=== PATIENT | male | born 1960 | race Hispanic/Latino ===

== ENCOUNTER 2021-06-09 21:08 | Emergency (ER) | payer SELFPAY ==
--- OUTSIDE RECORDS SUMMARY | 2021-06-09 21:10 | XMS REPORT | Continuity of Care Document ---
:1960 Author Organization [facility] t Address [address] [place] [address] [address] [place] [address] Care Team Providers Name Role Phone Unknown, Physician Primary Care Physician Unavailable JACKELINE FREIRE Attending Clinician Unavailable Jad Saravia MD Attending Clinician Problems Condition Condition Condition Status Onset Resolution Last Treating Co mments Source Name Details Category Date Date Treatment Clinician Date Lumbar Lumbar Disease Active [place] radiculopa radiculopa 11-29 He alth thy thy 00:00: 00 Primary Primary Disease Active [facility] osteoarthr osteoarthr 11-29 He alth itis of itis of 00:00: left knee left knee 00 Acute pain Acute pain Disease Active [facility] T of both of both 8-26 Health knees knees 00:00: 00 Acute pain Acute pain Disease Active [facility] of both of both 8-26 Health knees knees 00:00: 00 Allergies, Adverse Reactions, Alerts This patient has no known allergies or adverse reactions. Social History Social Habit Start Date Stop Date Quantity Comments Source Exposure to Not sure [facility] SARS-CoV-2 (event) Alcohol intake 2020-12-24 2020-12-24 Current drinker of [facility] 00:00:00 00:00:00 alcohol (finding) Tobacco use and 2020-11-29 2020-11-29 Smokeless tobacco [facility] exposure 00:00:00 00:00:00 non-user Sex Ass[birth year] At [birth year] [facility] 00:00:00 00:00:00 Smoking Status Start Date Stop Date Source Smokes tobacco daily 2020-11-29 00:00:00 [place] [facility] Medications Ordered Filled Start Stop Current Ordering Indication Dosage Frequency Signature Comments Components Source Medication Medication Date Date Medication? Clinician (SIG) Name Name aspirin 81 0 Yes 81mg QD Take 81 mg U T MG EC 8-30 by mouth 1 Health tablet 15:44: (one) time 10 each day. gabapentin 2020-0 Yes 400mg Q.[id number] Take 400 [place] (Neurontin) 8-30 [id number] mg by H ealth 400 MG 15:44: 3D mouth 3 capsule 10 (three) times a day. losartan-hy 2020-0 Yes 1{tbl} QD Take 1 [facility] droCHLOROth 8-30 tablet by [facility] iazide 15:44: mouth 1 (Hyzaar) 10 (one) time 100-12.5 MG each day. tablet aspirin 81 2020-0 Yes 81mg QD Take 81 mg U T MG EC 8-30 by mouth 1 Health tablet 15:44: (one) time 10 each day. gabapentin 2020-0 Yes 400mg Q.[id number] Take 400 [place] (Neurontin) 8-30 [id number] mg by H ealth 400 MG 15:44: 3D mouth 3 capsule 10 (three) times a day. losartan-hy 2020-0 Yes 1{tbl} QD Take 1 [place] droCHLOROth 8-30 tablet by [facility] iazide 15:44: mouth 1 (Hyzaar) 10 (one) time 100-12.5 MG each day. tablet aspirin 81 2020-0 Yes 81mg QD Take 81 mg U T MG EC 8-30 by mouth 1 Health tablet 10:44: (one) time 10 each day. gabapentin 2020-0 Yes 400mg Q.[id number] Take 400 [facility] (Neurontin) 8-30 [id number] mg by H ealth 400 MG 10:44: 3D mouth 3 capsule 10 (three) times a day. losartan-hy 2020-0 Yes 1{tbl} QD Take 1 UT droCHLOROth 8-30 tablet by [facility] iazide 10:44: mouth 1 (Hyzaar) 10 (one) time 100-12.5 MG each day. tablet aspirin 81 2020-0 Yes 81mg QD Take 81 mg U T MG EC 8-30 by mouth 1 Health tablet 10:44: (one) time 10 each day. gabapentin 2021-0 Yes 400mg Q.[id number] Take 400 [place] (Neurontin) 8-30 [id number] mg by H ealth 400 MG 10:44: 3D mouth 3 capsule 10 (three) times a day. losartan-hy 202-0 Yes 1{tbl} QD Take 1 UT droCHLOROth 8-30 tablet by [facility] iazide 10:44: mouth 1 (Hyzaar) 10 (one) time 100-12.5 MG each day. tablet aspirin 81 2021-0 Yes 81mg QD Take 81 mg U T MG EC 8-30 by mouth 1 Health tablet 10:44: (one) time 10 each day. gabapentin 2021-0 Yes 400mg Q.[id number] Take 400 [facility] (Neurontin) 8-30 [id number] mg by H ealth 400 MG 10:44: 3D mouth 3 capsule 10 (three) times a day. losartan-hy 2020-0 Yes 1{tbl} QD Take 1 UT droCHLOROth 8-30 tablet by [facility] iazide 10:44: mouth 1 (Hyzaar) 10 (one) time 100-12.5 MG each day. tablet aspirin 81 202-0 Yes 81mg QD Take 81 mg U T MG EC 8-30 by mouth 1 Health tablet 10:44: (one) time 10 each day. gabapentin 2021-0 Yes 400mg Q.[id number] Take 400 [facility] (Neurontin) 8-30 [id number] mg by H ealth 400 MG 10:44: 3D mouth 3 capsule 10 (three) times a day. losartan-hy 2020-0 Yes 1{tbl} QD Take 1 UT droCHLOROth 8-30 tablet by [facility] iazide 10:44: mouth 1 (Hyzaar) 10 (one) time 100-12.5 MG each day. tablet aspirin 81 2021-0 Yes 81mg QD Take 81 mg U T MG EC 8-30 by mouth 1 Health tablet 10:44: (one) time 10 each day. gabapentin 2021-0 Yes 400mg Q.[id number] Take 400 [facility] (Neurontin) 8-30 [id number] mg by H ealth 400 MG 10:44: 3D mouth 3 capsule 10 (three) times a day. losartan-hy 202-0 Yes 1{tbl} QD Take 1 [facility] droCHLOROth 8-30 tablet by [facility] iazide 10:44: mouth 1 (Hyzaar) 10 (one) time 100-12.5 MG each day. tablet Vital Signs Vital Name Observation Time Observation Value Comments Source Body height 2020-11-29 15:41:00 165.1 cm [facility] Body weight 2020-11-29 15:41:00 [facility] 2020-11-29 15:41:00 32.62 kg/m2 [facility] Procedures Procedure Date / Time Performed Performing Clinician Misti orellana MA BONE DENSITY DXA DUAL ENERGY 2021-01-07 15:19:32 Jonas Freire [facility] [id number] MRI LUMBAR SPINE WO CONTRAST 2020-12-09 23:35:00 Jad Saravia [facility] XR KNEE 3 VIEWS BILATERAL 2020-11-29 16:06:31 Jad Saravia [facility] Encounters Start End Encounter Admission Attending Care Care Encounter Source Date/Time Date/Time Type Type Clinicians Facility Department ID 2020-12-[address] [facility] [id number] [place] 10:43:56 [facility] Heal 2020-12-[address] [facility] [id number] [place] 09:43:46 Health 2020-12-[address] [facility] [id number] [place] 09:41:26 Health 2020-11-[address] [facility] [id number] [place] 10:27:52 Health 2021-02-11 2021-02-11 Office ABI Freire ORTHO [id number] [place] 09:19:10 10:29:44 Visit Jackeline SUGAR [id number] Health [place] [id number] 1 2021-01-03 2021-01-03 EXT [facility] OP TAMERA Freire MSRDP [id number] [place] 00:00:00 00:00:00 Jackeline LOCATION [id number] Health [id number] 2020-12-24 2020-12-24 Office ABI Freire ORTHO [id number] [place] 09:25:19 10:40:15 Visit Jackeline SUGAR [id number] Health LAND [id number] 1 2020-12-09 2020-12-09 EXT [facility] OP Rani, EXT MSRDP [id number] [place] 00:00:00 00:00:00 Jad VALDES [id number] H ealth [id number] 2020-11-29 2020-11-29 Office ABI Saravia ORTHO [id number] [place] 09:57:10 11:24:15 Visit Jad MEJIA [id number] He alth LAND [id number] 1 Results Test Description Test Time Test Comments Results Result [facility] e Comments XR knee 3 views 2020-11-29 3 views of bilateral [facility] bilateral 16:12:46 knees-the right knee is essentially normal, the left knee reveals a proximal tibial osteochondroma and moderate tricompartment arthritis XR knee 3 views 2020-11-29 3 views of bilateral [facility] bilateral 16:12:46 knees-the right knee is essentially normal, the left knee reveals a proximal tibial osteochondroma and moderate tricompartment arthritis
[2021-06-09 21:53] LABS: Urine Blood Negative (Negative); Urine Glucose Negative (Negative); Urine Protein 1+ (Negative); Urine Specific Gravity >=1.030 (1.005-1.030)
[2021-06-09] MEDS ORDERED: FAMOTIDINE 20 MG/2 ML VIAL IV ONE (22:10)
[2021-06-09] MEDS ORDERED: NA CHLORIDE 0.9% 1,000 ML ONE (22:10)
[2021-06-09] MEDS ORDERED: ONDANSETRON 4 MG/2 ML VIAL ONE (22:10)
[2021-06-09 22:31] LABS: Absolute Lymphocytes (CBC) 1.2 K/uL (0.7-4.9); Hematocrit 39.8 % (39.6-49.0); Lymphocytes % 10.7 % (15.3-44.8); MPV 7.2 fL (7.6-11.3); RBC Red Blood Cell Count 5.09 M/uL (4.33-5.43)
[2021-06-09 22:48] LABS: Albumin 4.4 g/dL (3.4-5.0); Bilirubin Direct 0.1 mg/dL (0-0.2); Bilirubin Total 0.5 mg/dL (0.2-1.0); Potassium 3.9 mmol/L (3.5-5.1); Troponin High Sensitivity 5.7 pg/mL (<58.9)
--- NOTE | 2021-06-10 01:16 | EDPHYS ---
Physician Documentation [facility] Name: Philip Ya Age: 60 yrs Sex: Male : 1960 Arrival Date: 06/09/2021 Time: 21:12 Bed 12 Private MD: ED Physician Evan Grimaldo HPI: 06/09 22:00 This 60 yrs old Male presents to ER via Ambulatory with complaints of cp Nausea/Vomiting/Diarrhea. 22:00 The patient presents to the emergency department with nausea, that is moderate, cp vomiting, that is intermittent, diarrhea, that is continuous, abdominal pain. Onset: The symptoms/episode began/occurred today. Possible causes: unknown. Associated signs and symptoms: Pertinent positives: anorexia, Pertinent negatives: constipation, fever, GI bleeding. Severity of symptoms: in the emergency department the symptoms are unchanged despite home interventions. Historical: - Allergies: 21:35 No Known Allergies; ld1 - Home Meds: 21:35 losartan-hydrochlorothiazide oral [Active]; gabapentin oral [Active]; ergocalciferol ld1 (vitamin D2) oral [Active]; Flomax 0.4 mg Oral cap 1 cap once daily [Active]; Simeon Aspirin (with caffeine) 850-65 mg oral pwpk [Active]; - PMHx: 21:35 Hypertensive disorder; BPH; ld1 - PSHx: 21:35 None; ld1 - Immunization history:: Adult Immunizations up to date, Client reports receiving the 2nd dose of the Covid vaccine. - Social history:: Smoking status: Patient denies any tobacco usage or history of. Patient/guardian denies using alcohol. ROS: 22:05 Constitutional: Positive for poor PO intake, Negative for body aches, chills, fever. cp 22:05 Eyes: Negative for injury, pain, redness, and discharge. cp 22:05 ENT: Negative for drainage from ear(s), ear pain, sore throat, difficulty swallowing, difficulty handling secretions. 22:05 Cardiovascular: Negative for chest pain, edema, palpitations. 22:05 Respiratory: Negative for cough, shortness of breath, wheezing. 22:05 Abdomen/GI: Positive for abdominal pain, nausea, vomiting, and diarrhea, anorexia, Negative for hematemesis, black/tarry stool, rectal bleeding. 22:05 Back: Negative for pain at rest, pain with movement. 22:05 : Negative for urinary symptoms. 22:05 Neuro: Negative for altered mental status, headache, weakness. 22:05 All other systems are negative. Exam: 22:10 Constitutional: The patient appears in no acute distress, alert, awake, cp non-diaphoretic, non-toxic, well developed, well nourished, uncomfortable. 22:10 Head/Face: Normocephalic, atraumatic. cp 22:10 Eyes: Periorbital structures: appear normal, Conjunctiva: normal, no exudate, no injection, Sclera: no appreciated abnormality, Lids and lashes: appear normal, bilaterally. 22:10 ENT: External ear(s): are unremarkable, Nose: is normal, Mouth: Lips: moist, Oral mucosa: moist, Posterior pharynx: Airway: no evidence of obstruction, patent. 22:10 Chest/axilla: Inspection: normal, Palpation: is normal, no crepitus, no tenderness. 22:10 Cardiovascular: Rate: tachycardic, Rhythm: regular. 22:10 Respiratory: the patient does not display signs of respiratory distress, Respirations: normal, no use of accessory muscles, no retractions, labored breathing, is not present, Breath sounds: are clear throughout, no decreased breath sounds, no stridor, no wheezing. 22:10 Abdomen/GI: Inspection: distension, that is mild, Bowel sounds: active, all quadrants, Palpation: soft, in all quadrants, moderate abdominal tenderness, in all quadrants, rebound tenderness, is not appreciated, involuntary guarding, is not appreciated. 22:10 Back: pain, is absent, ROM is normal. 22:10 Neuro: Orientation: to person, place \T\ time. Mentation: is normal. 22:38 ECG was reviewed by the Attending Physician. cp Vital Signs: 21:34 BP 124 / 77; Pulse 116; Resp 20; Temp 98.3(O); Pulse Ox 98% on R/A; Weight 99.79 kg; ld1 Height 5 ft. 10 in. (177.80 cm); Pain 8/10; 22:45 BP 134 / 79; Pulse 99; Resp 24; Pulse Ox 98% on R/A; tw5 06/10 01:46 BP 145 / 98; Pulse 103; Resp 18; Pulse Ox 99% on R/A; tw5 06/09 21:34 Body Mass Index 31.57 (99.79 kg, 177.80 cm) ld1 MDM: 06/09 21:47 Patient medically screened. cp 22:30 Differential diagnosis: gastritis, cholecystitis, diverticulitis, viral cp gastroenteritis, gastroenteritis, dehydration, bowel obstruction, enteritis. 06/10 01:15 Data reviewed: vital signs, nurses notes, lab test result(s), radiologic studies, CT cp scan. 01:15 Counseling: I had a detailed discussion with the patient and/or guardian regarding: the cp historical points, exam findings, and any diagnostic results supporting the discharge/admit diagnosis, lab results, radiology results, to return to the emergency department if symptoms worsen or persist or if there are any questions or concerns that arise at home. Response to treatment: the patient's symptoms have markedly improved after treatment, patient is well hydrated. Nausea and pain markedly improved. Vomiting resolved. Will discharge to home for continued monitoring. Special discussion: Based on the patient's Hx, exam, and Dx evaluation, there is no indication for emergent surgery or inpatient Tx. It is understood by the patient/guardian that if the Sx's persist or worsen they need to return immediately for re-evaluation. 06/09 21:53 Order name: Urine Dipstick-Ancillary; Complete Time: 22:16 EDMS 06/10 01:11 Interpretation: Normal except: UPROT 1+; U NIT Positive. cp 06/09 22:04 Order name: Basic Metabolic Panel cp 06/09 22:04 Order name: CBC with Diff; Complete Time: 23:04 cp 06/09 23:04 Interpretation: Normal except: HGB 12.7; MCV 78.2; MCH 24.9; MCHC 31.8; PLT 475; RDW cp 17.1; MPV 7.2; ALEXIS% 82.5; LYM% 10.7; NEUT A 8.9. 06/09 22:04 Order name: Hepatic Function; Complete Time: 23:04 cp 06/10 01:12 Interpretation: Normal except: AST 45; TP 9.0; GLOB 4.6; A/G 1.0. cp 06/09 22:04 Order name: Lipase; Complete Time: 23:04 cp 06/09 22:05 Order name: Magnesium; Complete Time: 23:04 cp 06/09 22:05 Order name: Troponin High Sensitivity; Complete Time: 23:04 cp 06/09 22:06 Order name: Basic Metabolic Panel; Complete Time: 23:04 EDMS 06/10 01:12 Interpretation: Normal except: CL 109; GLUC 120; BUN 21; GFR 65. cp 06/09 22:22 Order name: CT Abd/Pelvis - IV Contrast Only cp 06/10 01:12 Order name: Urine Microscopic Only cp 06/10 01:13 Order name: Urine Microscopic Only EDMS 06/10 01:30 Order name: Urine Culture tw5 06/10 01:31 Order name: Urine Culture EDTX 06/09 22:04 Order name: IV Saline Lock; Complete Time: 22:18 cp 06/09 22:04 Order name: Labs collected and sent; Complete Time: 22:18 cp 06/09 22:05 Order name: EKG; Complete Time: 22:06 cp 06/09 22:05 Order name: EKG - Nurse/Tech; Complete Time: 22:44 cp 06/10 01:13 Order name: PO challenge; Complete Time: 01:30 cp EC/10 22:38 Rate is 94 beats/min. Rhythm is regular. SD interval is normal. QRS interval is normal. cp QT interval is normal. T waves are Inverted in lead aVR. Interpreted by me. Reviewed by me. Administered Medications: 22:10 Drug: Pepcid (famotidine) 20 mg Route: IVP; Site: right antecubital; tw5 23:51 Follow up: Response: No adverse reaction tw5 22:12 Drug: Zofran (Ondansetron) 4 mg Route: IVP; Site: right antecubital; tw5 23:51 Follow up: Response: No change in condition tw5 22:14 Drug: NS 0.9% 1000 ml Route: IV; Rate: 1 bolus; Site: right antecubital; tw5 23:00 Follow up: IV Status: Completed infusion tw5 06/10 01:46 Drug: Ciprofloxacin 500 mg Route: PO; tw 01:47 Follow up: Response: No adverse reaction tw5 Disposition Summary: 06/10/21 01:15 Discharge Ordered Location: Home cp Problem: new cp Symptoms: have improved cp Condition: Stable cp Diagnosis - Diarrhea, unspecified cp - Nausea with vomiting, unspecified cp - UTI/ Urinary tract infection, site not specified cp Followup: cp - With: Private Physician - When: 2 - 3 days - Reason: Worsening of condition Discharge Instructions: - Discharge Summary Sheet cp - Food Choices to Help Relieve Diarrhea, Adult cp - Diarrhea, Adult cp - Nausea and Vomiting, Adult cp - Urinary Tract Infection, Adult cp Forms: - Medication Reconciliation Form cp - Thank You Letter cp - Antibiotic Education cp - Prescription Opioid Use cp Prescriptions: - Zofran 4 mg Oral Tablet - take 1 tablet by ORAL route every 12 hours As needed; 20 tablet; Refills: 0, cp Product Selection Permitted - Cipro 500 mg Oral Tablet - take 1 tablet by ORAL route every 12 hours for 7 days; 14 tablet; Refills: 0, cp Product Selection Permitted Addendum: 06/12/2021 19:14 Co-signature as Attending Physician, Evan Grimaldo MD. m Signatures: Dispatcher [employer] EDMS João Sahu PA PA cp Holmes, Maurice, MD MD [id number] Zabrina Flores RN RN 1 Emiliana Baker 5 aRina Alberts PA PA sb3
--- NOTE | 2021-06-10 01:16 | ER ---
Nurse's Notes [facility] Name: Philip Ya Age: 60 yrs Sex: Male : 1960 Arrival Date: 06/09/2021 Time: 21:12 Bed 12 Private MD: Diagnosis: Diarrhea, unspecified;Nausea with vomiting, unspecified;UTI/ Urinary tract infection, site not specified Presentation: 06/09 21:34 Chief complaint: Patient states: N/V/D X 1 day - mid epigastic ABD pain 11/09. ld1 Coronavirus screen: At this time, the client does not indicate any symptoms associated with coronavirus-19. Ebola Screen: No symptoms or risks identified at this time. Initial Sepsis Screen: Does the patient meet any 2 criteria? No. Patient's initial sepsis screen is negative. Does the patient have a suspected source of infection? No. Patient's initial sepsis screen is negative. Risk Assessment: Do you want to hurt yourself or someone else? Patient reports no desire to harm self or others. Onset of symptoms was June 09, 2021. 21:34 Method Of Arrival: Ambulatory ld1 21:34 Acuity: CHERELLE 3 ld1 Triage Assessment: 21:35 General: Appears in no apparent distress. comfortable, Behavior is calm, cooperative, ld1 appropriate for age. Pain: Complains of pain in epigastric area Pain does not radiate. Pain currently is 8 out of 10 on a pain scale. Neuro: Level of Consciousness is awake, alert, obeys commands, Oriented to person, place, time, situation. Respiratory: Airway is patent Respiratory effort is even, unlabored. GI: Abdomen is round non-distended, Reports diarrhea, nausea, vomiting. Historical: - Allergies: 21:35 No Known Allergies; ld1 - Home Meds: 21:35 losartan-hydrochlorothiazide oral [Active]; gabapentin oral [Active]; ergocalciferol ld1 (vitamin D2) oral [Active]; Flomax 0.4 mg Oral cap 1 cap once daily [Active]; Simeon Aspirin (with caffeine) 850-65 mg oral pwpk [Active]; - PMHx: 21:35 Hypertensive disorder; BPH; ld1 - PSHx: 21:35 None; ld1 - Immunization history:: Adult Immunizations up to date, Client reports receiving the 2nd dose of the Covid vaccine. - Social history:: Smoking status: Patient denies any tobacco usage or history of. Patient/guardian denies using alcohol. Screenin:59 Abuse screen: Denies threats or abuse. Nutritional screening: No deficits noted. tw5 Tuberculosis screening: No symptoms or risk factors identified. Fall Risk IV access (20 points). Assessment: 21:59 General: Appears uncomfortable, Behavior is calm, cooperative, appropriate for age. tw5 Neuro: Level of Consciousness is awake, alert, obeys commands, Oriented to person, place, time, situation. Cardiovascular: Heart tones S1 S2. Respiratory: Breath sounds are clear bilaterally. GI: Abdomen is round Bowel sounds present X 4 quads. : No deficits noted. EENT: No deficits noted. Derm: No deficits noted. Musculoskeletal: No deficits noted. 21:59 Cardiovascular: 1-2+ pitting edema noted. Respiratory: Airway is patent Respiratory tw5 effort is labored, Respiratory pattern is regular. 06/10 01:46 Reassessment: Patient appears in no apparent distress at this time. Patient and/or tw5 family updated on plan of care and expected duration. Pain level reassessed. Patient is alert, oriented x 3, equal unlabored respirations, skin warm/dry/pink. Vital Signs: 06/09 21:34 BP 124 / 77; Pulse 116; Resp 20; Temp 98.3(O); Pulse Ox 98% on R/A; Weight 99.79 kg; ld1 Height 5 ft. 10 in. (177.80 cm); Pain 8/10; 22:45 BP 134 / 79; Pulse 99; Resp 24; Pulse Ox 98% on R/A; tw5 06/10 01:46 BP 145 / 98; Pulse 103; Resp 18; Pulse Ox 99% on R/A; tw5 06/09 21:34 Body Mass Index 31.57 (99.79 kg, 177.80 cm) ld1 ED Course: 06/09 21:12 Patient arrived in ED. ag3 21:35 Triage completed. ld1 21:35 Arm band placed on right wrist. ld1 21:38 Emiliana Baker is Primary Nurse. tw5 21:39 João Sahu PA is PHCP. cp 21:39 Evan Grimaldo MD is Attending Physician. cp 21:59 Patient has correct armband on for positive identification. Bed in low position. Call tw5 light in reach. 21:59 No provider procedures requiring assistance completed. Inserted saline lock: 20 gauge tw5 in right antecubital area, using aseptic technique. 22:20 Troponin High Sensitivity Sent. tw5 22:20 Basic Metabolic Panel Sent. tw5 22:20 Magnesium Sent. tw5 22:20 CBC with Diff Sent. tw5 22:20 Hepatic Function Sent. tw5 22:20 Lipase Sent. tw5 22:20 Basic Metabolic Panel Sent. tw5 22:44 Hepatic Function Sent. tw5 22:44 Lipase Sent. tw5 23:22 CT Abd/Pelvis - IV Contrast Only In Process Unspecified. EDMS 06/10 00:06 Report given to Emiliana. :46 Door closed. Noise minimized. Moved to private room. 01:46 Urine Culture Sent. :46 Urine Culture Sent. 01:46 Urine Microscopic Only Sent. 01:46 Urine Microscopic Only Sent. 01:46 IV discontinued, intact, bleeding controlled, No redness/swelling at site. Pressure tw5 dressing applied. Administered Medications: 06/09 22:10 Drug: Pepcid (famotidine) 20 mg Route: IVP; Site: right antecubital; tw 23:51 Follow up: Response: No adverse reaction 22:12 Drug: Zofran (Ondansetron) 4 mg Route: IVP; Site: right antecubital; tw 23:51 Follow up: Response: No change in condition 22:14 Drug: NS 0.9% 1000 ml Route: IV; Rate: 1 bolus; Site: right antecubital; tw 23:00 Follow up: IV Status: Completed infusion tw06/10 01:46 Drug: Ciprofloxacin 500 mg Route: PO; 01:47 Follow up: Response: No adverse reaction Outcome: 01:15 Discharge ordered by . cp 01:46 Discharged to home ambulatory, with family. 01:46 Condition: good 01:46 Discharge instructions given to patient, family, Instructed on discharge instructions, follow up and referral plans. medication usage, Demonstrated understanding of instructions, follow-up care, medications, Prescriptions given X 2. 01:47 Patient left the ED. tw Signatures: Dispatcher [employer] EDMS Page, João, PA PA cp Shin, Daysi ag3 Zabrina Flores, WANDA RN ld1 Emiliana Baker tw5
[2021-06-10] MEDS ORDERED: CIPROFLOXACIN HCL 500 MG TAB ONE (01:33)
[2021-06-10 02:02] LABS: Urine Bacteria 20-50 /HPF (NONE SEEN); Urine Mucus 1+ /HPF (NONE SEEN); Urine RBC NONE SEEN /HPF (NONE SEEN)
[2021-06-10 02:06] VITALS: TEMP 98.3
[2021-06-10 02:09] VITALS: BP 145/98; O2SAT 99
--- NOTE | 2021-06-10 13:09 | EKG ---
Test Date: 2021-06-09 Test Time: 22:33:29 Civil Designer: JOEY MEASUREMENT RESULTS: Intervals: Rate: 94 NH: 140 QRSD: 90 QT: 344 QTc: 430 [place]: P: 36 NH: 140 QRS: 40 T: 51 INTERPRETIVE STATEMENTS: Normal sinus rhythm Normal ECG No previous ECG available for comparison Electronically Signed On 06-10-21 13:08:01 MIXING TUMBLER OPERATOR by Rashaad Stephens
--- NOTE | 2021-06-10 14:58 | RAD REPORT ---
EXAM DESCRIPTION: CT - Abdomen Pelvis W Contrast - 06/10/2021 6:12 am CLINICAL HISTORY: 60-year-old male with abdominal pain. COMPARISON: None. TECHNIQUE: CT of the abdomen and pelvis was performed following intravenous administration of contra st. Oral contrast was not administered. Multiplanar reformatted images were provided. This exam was p erformed according to our departmental dose optimization program which includes use of automated expo sure control, adjustment of the mA and/or kV according to patient size and/or use of iterative recons truction technique. FINDINGS: Chest: Evaluation through the lung bases reveals no focal opacity, pleural effusion or pne umothorax. Heart size is within normal limits. No pericardial effusion. Small hiatal hernia. Abdomen and pelvis: The liver, gallbladder, pancreas, spleen, bilateral kidneys and bilateral adrenal glands are within normal limits. The vessels are patent and normal in caliber. No abdominopelvic lymph nodes are noted to be pathologically enlarged by CT measurement criteria. The bowel is within normal limits without abnormal bowel wall thickness or bowel dilation. Unformed s tool present throughout the large and small bowel compatible with liquid fecal content/diarrhea, rais ing the question of enteritis. No free air. No free abdominopelvic fluid collections. The appendix is within normal limits. The osseous structures reveal a grade 2 anterolisthesis of L4 relative to L5 with uncovering of the d isk and severe broad-based disk bulge resulting in severe central spinal canal narrowing secondary to facet degenerative change at this level. There is associated severe bilateral neuroforaminal narrowi ng. Moderate disk extrusion on the RIGHT at the L5-S1 level in a RIGHT paracentral distribution resulting in abutment or mass effect on the descending S1 nerve roots. There is associated severe right-sided neural foraminal narrowing. Small fat-containing umbilical hernia. Moderate bilateral fat-containing inguinal hernia. IMPRESSION: 1. No specific acute intra-abdominal findings are noted to suggest etiology of the pat ient's abdominal pain. 2. Unformed stool present throughout the large and small bowel compatible with liquid fecal content /diarrhea, raising the question of enteritis. 3. Small hiatal hernia. 4. Moderate to severe degenerative bony and disk changes with moderate to severe central spinal can al and neural foraminal narrowing as detailed above. Further evaluation with MRI to be considered. Electronically signed by: Tabatha Carson MD 06/09/2021 11:41 PM IP LITIGATION [place] Due to temporary technical issues with the PACS/Fluency reporting system, reports are being signed by the in house radiologists without review as a courtesy to insure prompt reporting. The interpreting radiologist is fully responsible for the content of the report.
== END 2021-06-10 01:47 | disposition home or self-care (01) ==
LOC: ER 21:08
DX: N39.0 Urinary tract infection, site not specified (principal); R19.7 Diarrhea, unspecified; I10 Essential (primary) hypertension; N40.0 Benign prostatic hyperplasia without lower urinary tract symptoms
CPT/HCPCS: 36415; 74177; 80048; 80076; 81003; 81015; 83690; 83735; 84484; 85025; 87086; 87088; 93005; 96361; 96374; 96375; 99284; J2405; J7030; Q9967

== ENCOUNTER 2024-01-14 16:42 | Emergency (ER) | payer SELFPAY ==
[2024-01-14 17:57] LABS: Absolute Basophils 0.1 K/uL (0-0.5); Absolute Eosinophils 0.1 K/uL (0-0.5); Absolute Lymphocytes (CBC) 1.7 K/uL (0.7-4.9); Absolute Monocytes 0.5 K/uL (0.1-1.3); Absolute Neutrophil 4.9 K/uL (1.8-8.0); Albumin 3.5 g/dL (3.4-5.0); Albumin/Globulin Ratio 0.9 (1.1-1.8); Anion Gap 8.2 mEq/L (5.0-15.0); Bilirubin Total 0.7 mg/dL (0.2-1.0); Eosinophils % 0.7 % (0-4.4); Globulin 3.8 g/dL (2.3-3.5); Hematocrit 39.2 % (39.6-49.0); Hemoglobin 12.7 g/dL (13.6-17.9); Lymphocytes % 23.3 % (15.3-44.8); MCH 27.2 pg (27.0-35.0); MCHC 32.5 g/dL (32.0-36.0); MCV 83.7 fL (80-100); MPV 6.5 fL (7.6-11.3); Monocytes % 6.5 % (3.3-12.3); Neutrophils % 68.5 % (41.7-73.7); Nucleated Red Blood Cells % 0.1 % (0-0); Platelets 327 thou/uL (152-406); Potassium 4.2 mEq/L (3.5-5.1); Protein, Total 7.3 g/dL (6.4-8.2); RBC Red Blood Cell Count 4.69 M/uL (4.33-5.43); Red Cell Distribution Width 18.9 % (12.1-15.2)
[2024-01-14 18:02] LABS: PT Prothrombin Time 11.5 SECONDS (9.4-12.5); PTT, Activated Partial Thromb 30.1 SECONDS (24.3-36.9); Protime INR 1.03
[2024-01-14] MEDS ORDERED: KETOROLAC 30 MG/ML INJ ONE (18:09)
--- NOTE | 2024-01-14 18:09 | RAD REPORT ---
EXAMINATION: ONE VIEW CHEST XR CLINICAL INDICATION: Male, 63 years old.,COUGH TECHNIQUE: Frontal chest projection is submitted. Examination is limited by patient positioning and t echnique. COMPARISON: None FINDINGS: The lungs are well inflated. Right basilar atelectasis, mild. No other focal airspace opacities. No pneumothorax or sizable effusion. The heart is mildly prominent in size. IMPRESSION: No acute pulmonary process. Mild prominence of the cardiac silhouette.
[2024-01-14] MEDS ORDERED: NA CHLORIDE 0.9% 250 ML ONE (18:10)
[2024-01-14] MEDS ORDERED: FENTANYL CITR 100 MCG/2 ML ONE (18:10)
--- NOTE | 2024-01-14 18:43 | RAD REPORT ---
EXAM: CT brain without contrast HISTORY: Ground-level fall COMPARISON: None TECHNIQUE: Multiple contiguous axial images were obtained and a CT of the brain without contrast. Sag ittal and coronal reformats were performed. FINDINGS:No evidence of hydrocephalus, intracranial hemorrhage, or extra-axial fluid collection. The brain is normal in morphology. The calvarium is intact. Right maxillary sinus mucus retention cyst. Diminutive appearance and opacif ication of the mastoid air cells bilaterally. IMPRESSION: No evidence of acute intracranial abnormality. EXAM: CT of the cervical spine without contrast HISTORY: Ground-level fall COMPARISON: None TECHNIQUE: Multiple contiguous axial images were obtained in a CT of the cervical spine without contr ast. Sagittal and coronal reformats were performed. FINDINGS: The vertebral bodies demonstrate normal height and alignment. No evidence of acute fracture or subluxation.. Mild degenerative changes with up to moderate degrees of bony neural foraminal narrowing. No prevertebral soft tissue swelling is seen. The posterior facets are well aligned. Normal alignment of the skull base with the cervical spine is seen. The lung apices are unremarkable. IMPRESSION: No evidence of acute osseous abnormality of the cervical spine.
--- NOTE | 2024-01-14 18:46 | RAD REPORT ---
EXAMINATION: CT LUMBAR SPINE WITHOUT CONTRAST CLINICAL INDICATION: Male, 63 years old. GLF TECHNIQUE: Axial CT images were obtained through the lumbar spine in soft tissue and bone windows wit hout intravenous contrast. Coronal and Sagittal reformatted images were created from the data set. One or more of the following dose reduction techniques were used: Automated exposure control, adjustm ent of the mA and/ or kV according to patient size, and/or iterative reconstruction. Unless otherwise specified, incidental findings do not require dedicated imaging follow-up. COMPARISON: No prior exam. FINDINGS: For purposes of this dictation, it is assumed that there are 5 non rib-bearing lumbar type vertebrae, and the most caudal fully segmented lumbar vertebra is labeled L5. ALIGNMENT: The lumbar spine demonstrates grade 1 anterolisthesis at L4-5. No scoliosis or spondylolis thesis at other levels. BONES: No significant soft tissue abnormalities. No aggressive osseous lesions. Mild superior endplat e compression deformity at L4, probably chronic, with Schmorl's node formation. DISCS: Moderate disc height loss at L1-2, L4-5, and L5-S1. LEVELS: Multilevel endplate and facet remodeling, most pronounced at L4-5, where there is moderate to severe central canal stenosis. Disc bulges most pronounced at L4-5, and to lesser degree at L5-S1 and L3-4. Bilateral neural foraminal narrowing, up to severe at L4-5 bilaterally. No visualized abnor mality within the spinal canal. SOFT TISSUE: No soft tissue abnormalities. IMPRESSION: No acute lumbar spine abnormalities. Multilevel spondylotic changes with grade 1 anterolisthesis of L4 over L5, with findings contributing to severe central canal stenosis and bilateral moderate to severe neural foraminal narrowing at that level.
--- NOTE | 2024-01-14 20:09 | ER ---
Nurse's Notes [facility] Name: Philip Ya Age: 63 yrs Sex: Male : 1960 Arrival Date: 01/14/2024 Time: 16:42 Bed 4 Private MD: Diagnosis: Low back pain;Contusion of unspecified part of neck Presentation: 01/13 17:12 Chief complaint: Patient states: fell yesterday while using my walker. since then my tm6 back, head, and legs have been hurting. I have also had some nausea. Coronavirus screen: Client denies travel out of the [place] in the last 14 days. Ebola Screen: Patient negative for fever greater than or equal to 101.5 degrees Fahrenheit, and additional compatible Ebola Virus Disease symptoms Patient denies exposure to infectious person. Patient denies travel to an Ebola-affected area in the 21 days before illness onset. No symptoms or risks identified at this time. Initial Sepsis Screen: Does the patient meet any 2 criteria? RR > 20 per min. HR > 90 bpm. Yes Does the patient have a suspected source of infection? No. Patient's initial sepsis screen is negative. Risk Assessment: Do you want to hurt yourself or someone else? Patient reports no desire to harm self or others. Onset of symptoms was January 13, 2024. 17:12 Method Of Arrival: Wheelchair tm6 17:12 Acuity: CHERELLE 3 tm6 Triage Assessment: 17:13 General: Appears uncomfortable, Behavior is calm, cooperative. Pain: Complains of pain tm6 in head, back, legs Pain currently is 10 out of 10 on a pain scale. Pain began 1 day ago. EENT: No signs and/or symptoms were reported regarding the EENT system. Neuro: Level of Consciousness is awake, alert, obeys commands, Oriented to person, place, time, situation, Reports headache since yesterday. Cardiovascular: Patient's skin is warm and dry. Respiratory: Reports SOB at times Airway is patent Respiratory effort is labored, Respiratory pattern is symmetrical. GI: Abdomen is round Reports nausea. : No signs and/or symptoms were reported regarding the genitourinary system. Derm: No signs and/or symptoms reported regarding the dermatologic system. Musculoskeletal: Reports pain in back, right leg and left leg, head. Historical: - Allergies: 17:13 No Known Allergies; tm6 - PMHx: 17:13 BPH; Hypertensive disorder; Diabetes mellitus; Hypercholesterolemia; tm6 - PSHx: 17:13 back; tm6 - Immunization history:: Client reports having NOT received the Covid vaccine. - Infectious Disease History:: Denies. - Social history:: Smoking status: Patient denies any tobacco usage or history of. Patient/guardian denies using alcohol. Screenin:28 [facility] ED Fall Risk Assessment (Adult) History of falling in the last 3 months, bm8 including since admission Yes- single mechanical fall (1 pt) Confusion or Disorientation No (0 pts) Intoxicated or Sedated No (0 pts) Impaired Gait No (0 pts) Mobility Assist Device Used No (0 pt) Altered Elimination No (0 pt) Score/Fall Risk Level 0 - 2 = Low Risk Oriented to surroundings, Maintained a safe environment, Educated pt \T\ family on fall prevention, incl call for assistance when getting out of bed, Assessed \T\ reinforced patient's understanding of fall precautions, Hourly rounding (assess needs \T\ fall precautionary measures) done, Used ambulatory aids as needed (educated on \T\ assisted with), Used gait belt as appropriate. Abuse screen: Denies threats or abuse. Nutritional screening: No deficits noted. Tuberculosis screening: No symptoms or risk factors identified. Assessment: 19:25 Reassessment: Patient appears in no apparent distress at this time. Patient and/or bm8 family updated on plan of care and expected duration. Pain level reassessed. Patient is alert, oriented x 3, equal unlabored respirations, skin warm/dry/pink. Patient denies pain at this time. Patient states feeling better. General: Appears in no apparent distress. comfortable, Behavior is calm, cooperative, appropriate for age. Pain: Denies pain. Neuro: No deficits noted. Level of Consciousness is awake, alert, obeys commands, Oriented to person, place, time, situation, Appropriate for age. Cardiovascular: Denies chest pain, Heart tones S1 S2 present Capillary refill < 3 seconds in bilateral fingers. Respiratory: No deficits noted. Airway is patent Breath sounds are clear bilaterally. GI: No signs and/or symptoms were reported involving the gastrointestinal system. : No signs and/or symptoms were reported regarding the genitourinary system. EENT: No signs and/or symptoms were reported regarding the EENT system. Derm: No signs and/or symptoms reported regarding the dermatologic system. Musculoskeletal: No signs and/or symptoms reported regarding the musculoskeletal system. 20:31 Reassessment: Patient appears in no apparent distress at this time. No changes from bm8 previously documented assessment. Patient and/or family updated on plan of care and expected duration. Pain level reassessed. Patient is alert, oriented x 3, equal unlabored respirations, skin warm/dry/pink. Patient denies pain at this time. Patient states feeling better. Patient states symptoms have improved. Vital Signs: 17:12 BP 149 / 89; Pulse 138; Resp 25; Temp 98.5(O); Pulse Ox 93% on R/A; MAP 102 mmHg; tm6 Weight 95.25 kg; Height 5 ft. 5 in. ; Pain 10/10; 18:25 BP 142 / 83; Pulse 112; Resp 28 S; Pulse Ox 90% on R/A; aa5 18:44 Pulse Ox 95% on 2 lpm NC; aa5 19:28 BP 117 / 71; Pulse 108; Resp 19; Temp 98.5; Pulse Ox 95% on 2 lpm NC; Pain 1/10; bm8 20:31 BP 125 / 68; Pulse 84; Resp 17; Temp 98.4; Pulse Ox 95% on R/A; Pain 0/10; bm8 17:12 Body Mass Index 34.95 (95.25 kg, 165.1 cm) tm6 17:12 Pain Scale: Adult tm6 19:28 Pain Scale: Adult bm8 20:31 Pain Scale: Adult bm8 [place] Coma Score: 19:28 Eye Response: spontaneous(4). Motor Response: obeys commands(6). Verbal Response: bm8 oriented(5). Total: 15. 20:31 Eye Response: spontaneous(4). Motor Response: obeys commands(6). Verbal Response: bm8 oriented(5). Total: 15. ED Course: 16:44 Patient arrived in ED. mr 16:55 Aram Bahena MD is Attending Physician. ec2 16:59 Francisco Padilla, WANDA is Primary Nurse. bp 17:13 Triage completed. tm6 17:13 Arm band placed on right wrist. tm6 17:28 Inserted saline lock: 20 gauge in right antecubital area, using aseptic technique. aa5 Flushed with 10 mL NS. 17:30 Initial lab(s) drawn, by me, sent to lab. First set of blood cultures drawn by me. aa5 17:35 EKG done, by ED staff, reviewed by Aram Bahena MD. aa5 17:40 Second set of blood cultures drawn by me. aa5 17:42 Chest Single View XRAY In Process Unspecified. EDMS 18:02 CT Head C Spine In Process Unspecified. EDMS 18:03 CT Lumbar Spine Wo Con In Process Unspecified. EDMS 19:28 Patient has correct armband on for positive identification. Bed in low position. Call bm8 light in reach. Side rails up X 1. Adult w/ patient. Client placed on continuous cardiac and pulse oximetry monitoring. NIBP monitoring applied. engine monitor on. Pulse ox on. NIBP on. Door closed. Noise minimized. Warm blanket given. Pillow given. Verbal reassurance given. Head of bed elevated. 19:28 No provider procedures requiring assistance completed. Oxygen administration via nasal bm8 cannula \T\ 2L/min Response to oxygen therapy: symptoms improved. 20:31 Provided Education on: post er care. bm8 20:31 IV discontinued, intact, bleeding controlled, No redness/swelling at site. Pressure bm8 dressing applied. Administered Medications: 18:25 Drug: NS 0.9% IV 250 ml IV at bolus once; to be given as a bolus over 30 minutes Route: aa5 IV; Rate: bolus; Site: right antecubital; 20:33 Follow up: Response: No adverse reaction; IV Status: Completed infusion; IV Intake: bm8 250ml 18:25 Drug: fentaNYL (PF) IVP 25 mcg IVP once Route: IVP; Site: right antecubital; aa5 20:33 Follow up: Response: No adverse reaction bm8 18:25 Drug: Ketorolac IVP 15 mg IVP once Route: IVP; Site: right antecubital; aa5 20:33 Follow up: Response: No adverse reaction bm8 Medication: 19:28 VIS not applicable for this client. bm8 Intake: 20:33 IV: 250ml; Total: 250ml. bm8 Outcome: 20:08 Discharge ordered by . ec2 20:31 Discharged to home via wheelchair, bm8 20:31 Condition: stable 20:31 Discharge instructions given to patient, family, Instructed on discharge instructions, follow up and referral plans. no drinking with medication, no driving heavy equipment, medication usage, safety practices, Demonstrated understanding of instructions, follow-up care, medications, Prescriptions given X 1, 20:34 Patient left the ED. bm8 Signatures: Dispatcher [employer] EDCT Mary Kay Arcos, Reg Reg mr Rm, Jasmin, RN RN aa5 Francisco Padilla, RN RN bp Aram Bahena MD MD ec2 Laura Atkins RN RN tm6 Davian Park, RN RN bm8
--- NOTE | 2024-01-14 20:09 | EDPHYS ---
Physician Documentation [facility] Name: Philip Ya Age: 63 yrs Sex: Male : 1960 Arrival Date: 01/14/2024 Time: 16:42 Bed 4 Private MD: ED Physician Aram Bahena HPI: 01/13 17:15 This 63 yrs old Male presents to ER via Wheelchair with complaints of Fall ec2 Injury. 17:12 Patient arrives today for evaluation due to concern for pain. Patient reports he had a ec2 ground-level fall yesterday. Reports no LOC. Not on blood thinners. Complaining of headache as well as neck pain and low back pain. Patient with history of general weakness and fairly limited with his mobility at baseline. Patient reports also an occasional cough. Denies any urinary changes. Denies any nausea or vomiting. Patient reports no fevers or chills.. Historical: - Allergies: 17:13 No Known Allergies; tm6 - PMHx: 17:13 BPH; Hypertensive disorder; Diabetes mellitus; Hypercholesterolemia; tm6 - PSHx: 17:13 back; tm6 - Immunization history:: Client reports having NOT received the Covid vaccine. - Infectious Disease History:: Denies. - Social history:: Smoking status: Patient denies any tobacco usage or history of. Patient/guardian denies using alcohol. ROS: 17:12 Constitutional: as per hpi ec2 Exam: 17:12 Constitutional: GEN: NAD Head: atraumatic Eyes: EOMI Ears: External ears are ec2 normal. CV: tachycardia LUNGS: no respiratory distress ABD: Soft, not guarding, not rigid SKIN: no evidence of rashes MSK: Bilateral upper and lower extremities without evidence of significant trauma. No C/C/L spine deformities. General TTP in the neck and low back noted. Upper chest wall without deformities. Vital Signs: 17:12 BP 149 / 89; Pulse 138; Resp 25; Temp 98.5(O); Pulse Ox 93% on R/A; MAP 102 mmHg; tm6 Weight 95.25 kg; Height 5 ft. 5 in. ; Pain 10/10; 18:25 BP 142 / 83; Pulse 112; Resp 28 S; Pulse Ox 90% on R/A; aa5 18:44 Pulse Ox 95% on 2 lpm NC; aa5 19:28 BP 117 / 71; Pulse 108; Resp 19; Temp 98.5; Pulse Ox 95% on 2 lpm NC; Pain 1/10; bm8 20:31 BP 125 / 68; Pulse 84; Resp 17; Temp 98.4; Pulse Ox 95% on R/A; Pain 0/10; bm8 17:12 Body Mass Index 34.95 (95.25 kg, 165.1 cm) tm6 17:12 Pain Scale: Adult tm6 19:28 Pain Scale: Adult bm8 20:31 Pain Scale: Adult bm8 [place] Coma Score: 19:28 Eye Response: spontaneous(4). Motor Response: obeys commands(6). Verbal Response: bm8 oriented(5). Total: 15. 20:31 Eye Response: spontaneous(4). Motor Response: obeys commands(6). Verbal Response: bm8 oriented(5). Total: 15. MDM: 17:00 Medical Screening Exam initiated ec2 17:12 Data reviewed: vital signs. ED course: Patient arrives today for evaluation after ec2 ground-level fall which occurred yesterday. Examination remarkable for tachycardia noted. Will obtain a septic workup, obtain CT scan of the head and C-spine as well as L-spine, obtain a chest x-ray.. 17:42 ED course: EKG independently reviewed and interpreted by me, shows sinus tachycardia, ec2 rate of 127, no acute ST segment elevations, intervals are nonactionable.. 18:11 ED course: CBC is reassuring. Metabolic profile with appropriate electrolytes and renal ec2 function. Lactate within normal ranges. Coagulation profile is nonactionable. Chest x-ray shows no acute intrathoracic process. Pending urine studies, CT imaging. . 20:08 ED course: On reassessment patient with marked improvement in symptoms, initially had ec2 ordered urine however patient denies any urinary complaints. Will discharge home. Return precautions given. Presentation assisted with multiple pains. No evidence of infectious process.. 01/13 17:11 Order name: Blood Culture Adult (2) ec2 01/13 17:11 Order name: CBC with Diff; Complete Time: 18:11 ec2 01/13 17:11 Order name: CMP; Complete Time: 18:11 ec2 01/13 17:11 Order name: Lactate w/ 2H reflex if indic.; Complete Time: 18:11 ec2 01/13 17:11 Order name: Protime (+inr); Complete Time: 18:11 ec2 01/13 17:11 Order name: Ptt, Activated; Complete Time: 18:11 ec2 01/13 17:11 Order name: Urinalysis w/ reflexes ec2 01/13 17:11 Order name: Chest Single View XRAY; Complete Time: 18:11 ec2 01/13 17:11 Order name: CT Head C Spine; Complete Time: 18:47 ec2 01/13 17:11 Order name: CT Lumbar Spine Wo Con; Complete Time: 18:47 ec2 01/13 17:11 Order name: EKG; Complete Time: 17:11 ec2 01/13 17:11 Order name: Accucheck; Complete Time: 19:38 ec2 01/13 17:11 Order name: Cardiac monitoring; Complete Time: 17:44 ec2 01/13 17:11 Order name: EKG - Nurse/Tech; Complete Time: 17:44 ec2 01/13 17:11 Order name: IV Saline Lock - Large Bore; Complete Time: 17:44 ec2 01/13 17:11 Order name: Labs collected and sent; Complete Time: 17:44 ec2 01/13 17:11 Order name: O2 Per Protocol; Complete Time: 17:44 ec2 01/13 17:11 Order name: O2 Sat Monitoring; Complete Time: 17:44 ec2 01/13 17:11 Order name: Vital Signs; Complete Time: 17:44 ec2 Administered Medications: 18:25 Drug: NS 0.9% IV 250 ml IV at bolus once; to be given as a bolus over 30 minutes Route: aa5 IV; Rate: bolus; Site: right antecubital; 20:33 Follow up: Response: No adverse reaction; IV Status: Completed infusion; IV Intake: bm8 250ml 18:25 Drug: fentaNYL (PF) IVP 25 mcg IVP once Route: IVP; Site: right antecubital; aa5 20:33 Follow up: Response: No adverse reaction bm8 18:25 Drug: Ketorolac IVP 15 mg IVP once Route: IVP; Site: right antecubital; aa5 20:33 Follow up: Response: No adverse reaction bm8 Disposition Summary: 01/14/24 20:08 Discharge Ordered Notes: Location: Home ec2 Condition: Stable ec2 Diagnosis - Low back pain ec2 - Contusion of unspecified part of neck ec2 Followup: ec2 - With: Private Physician - When: - Reason: Re-evaluation by your physician Discharge Instructions: - Discharge Summary Sheet ec2 - Acute Back Pain, Adult ec2 Forms: - Medication Reconciliation Form ec2 - Antibiotic Education ec2 - Prescription Opioid Use ec2 - Patient Portal Instructions ec2 - Leadership Thank You Letter ec2 - Work release form bm8 Prescriptions: - methocarbamol 500 mg Oral tablet - take 2 tablets ORAL route 4 times per day; 30 tablet; Refills: 0, Product ec2 Selection Permitted Signatures: Dispatcher [employer] EDMS Jasmin Abdalla RN RN aa5 Aram Bahena MD MD ec2 Laura Atkins RN RN tm6 Davian Park RN bm8 Corrections: (The following items were deleted from the chart) 17:11 17:11 BLOOD CULTURE*+BA.LAB.BRZ ordered. EDMS EDMS 17:11 17:11 CBC+H.LAB.BRZ ordered. EDMS EDMS 17:11 17:11 COMPREHENSIVE METABOLIC PANEL+C.LAB.BRZ ordered. EDMS EDMS 17:12 17:11 LACTATE+C.LAB.BRZ ordered. EDMS EDMS 17:12 17:11 PROTIME (+INR)+COAG.LAB.BRZ ordered. EDMS EDMS 17:12 17:11 PTT, ACTIVATED+COAG.LAB.BRZ ordered. EDMS EDMS 17:12 17:11 Urinalysis+U.LAB.BRZ ordered. EDMS EDMS 17:15 17:12 Constitutional: GEN: NAD Head: atraumatic Eyes: EOMI Ears: External ears are ec2 normal. CV: regular rate LUNGS: no respiratory distress ABD: Soft, not guarding, not rigid SKIN: no evidence of rashes MSK: Bilateral upper and lower extremities without evidence of significant trauma. No C/C/L spine deformities. General TTP in the neck and low back noted. Upper chest wall without deformities. ec2
[2024-01-14 20:29] LABS: Specific Gravity 1.019 (1.005-1.030); Sqamous Epithelial <5 /HPF (None Seen); Urine Bacteria None Seen /HPF (<20); Urine Bilirubin NEGATIVE (Negative); Urine Blood Negative (Negative); Urine Clarity Clear (Clear); Urine Color Yellow (Yellow); Urine Culture Reflex Order NOT NEEDED; Urine Glucose NEGATIVE (Negative); Urine Ketones NEGATIVE (Negative); Urine Microscopic Reflex YN ORDER UMIC; Urine Mucus Slight /HPF (None Seen); Urine Nitrite NEGATIVE (Negative); Urine Protein TRACE (Negative); Urine RBC <5 /HPF (None Seen); Urine Urobilinogen 1+ (Normal); Urine WBC <5 /HPF (<5); Urine pH 7.5 (5.0-7.0)
[2024-01-15 00:55] VITALS: O2SAT 95
[2024-01-15 00:59] VITALS: BP 125/68; TEMP 98.4
== END 2024-01-14 20:34 | disposition home or self-care (01) ==
LOC: ER 16:42
DX: M54.50 Low back pain, unspecified (principal); S10.83XA Contusion of other specified part of neck, initial encounter; R51.9 Headache, unspecified; W18.30XA Fall on same level, unspecified, initial encounter
CPT/HCPCS: 36415; 70450; 71045; 72125; 72131; 80053; 81001; 83605; 85025; 85610; 85730; 87040; 93005; J3010; J7050

== ENCOUNTER 2024-01-18 14:31 | Inpatient (IN) | payer SELFPAY ==
--- NOTE | 2024-01-18 15:36 | RAD REPORT ---
EXAM: CT brain without contrast HISTORY: Headache COMPARISON: January 14, 2024 TECHNIQUE: Multiple contiguous axial images were obtained and a CT of the brain without contrast.. Sagittal and coronal reconstruction performed. Automated exposure control, adjustment of the mA and/or kV according to patient size, and/or iterative reconstruction. Unless otherwise specified, incidental f indings do not require dedicated imaging follow-u FINDINGS: An intracranial bleed is not seen Ventricles are normal caliber No extra-axial fluid collection noted Small calcification right frontal lobe may be secondary to prior infection or cavernous angioma. No significant hypodensity within the brain No fluid within the visualized sinuses. Opacification mastoids unchanged. IMPRESSION: No acute intracranial abnormality noted. Opacification of the mastoids unchanged indicate chronic mastoiditis If the patient's symptoms persist MRI of the brain would be recommended.
--- NOTE | 2024-01-18 16:17 | RAD REPORT ---
Procedure: Chest Single View HISTORY: Chest pain COMPARISON: January 14, 2024 FINDINGS: The lungs appear clear of acute infiltrate. No significant pleural effusion noted. The heart is mildly enlarged. IMPRESSION: No acute abnormality is displayed.
[2024-01-18 16:35] LABS: Absolute Eosinophils 0.1 K/uL (0-0.5); Absolute Lymphocytes (CBC) 0.9 K/uL (0.7-4.9); Absolute Monocytes 0.5 K/uL (0.1-1.3); Absolute Neutrophil 3.2 K/uL (1.8-8.0); Basophils % 0.5 % (0-1.3); Eosinophils % 1.8 % (0-4.4); Hematocrit 35.9 % (39.6-49.0); Hemoglobin 11.5 g/dL (13.6-17.9); Lymphocytes % 19.4 % (15.3-44.8); MCHC 31.9 g/dL (32.0-36.0); MCV 84.4 fL (80-100); MPV 6.7 fL (7.6-11.3); Neutrophils % 68.3 % (41.7-73.7); PT Prothrombin Time 13.5 SECONDS (9.4-12.5); Platelets 294 thou/uL (152-406); Protime INR 1.21; RBC Red Blood Cell Count 4.25 M/uL (4.33-5.43); Red Cell Distribution Width 18.6 % (12.1-15.2)
[2024-01-18 16:50] LABS: Albumin 2.9 g/dL (3.4-5.0); Albumin/Globulin Ratio 0.7 (1.1-1.8); Anion Gap 12.8 mEq/L (5.0-15.0); Bilirubin Direct 0.2 mg/dL (0-0.2); Bilirubin Indirect, Calculated 0.4 mg/dL (0.2-0.8); Bilirubin Total 0.6 mg/dL (0.2-1.0); Potassium 3.8 mEq/L (3.5-5.1); Protein, Total 6.9 g/dL (6.4-8.2); Troponin High Sensitivity 19.5 pg/mL (<58.9)
[2024-01-18] MEDS ORDERED: DIPHENHYDRAMINE 50 MG/ML VIAL ONE (16:55)
[2024-01-18] MEDS ORDERED: NA CHLORIDE 0.9% 50 ML ONE (16:55)
[2024-01-18] MEDS ORDERED: METOCLOPRAMIDE 10 MG/2mL INJ ONE (16:55)
[2024-01-18] MEDS ORDERED: NA CHLORIDE 0.9% 1,000 ML ONE ×2 (16:56→18:18)
[2024-01-18 16:57] LABS: SARS-CoV-2 Antigen CONTROL BLUE LINE VIS/BG OK; SARS-CoV-2 Antigen Rapid Res Negative (Negative)
[2024-01-18] MEDS ORDERED: FAMOTIDINE 20 MG/2 ML VIAL IV ONE (18:18)
[2024-01-18] MEDS ORDERED: ACETAMINOPHEN 500 MG TAB ONE (18:18)
[2024-01-18] MEDS ORDERED: ONDANSETRON 4 MG/2 ML VIAL ONE (18:18)
--- NOTE | 2024-01-18 18:19 | EDPHYS ---
Physician Documentation [facility] Name: Philip Ya Age: 63 yrs Sex: Male : 1960 Arrival Date: 01/18/2024 Time: 14:31 Bed 15 Private MD: ED Physician João Randhawa HPI: 01/17 14:55 This 63 yrs old Male presents to ER via Wheelchair with complaints of cp Headache, Nausea, Weakness. 14:55 The patient complains of pain to the top of head and forehead. The patient describes cp the headache as aching, constant. Onset: The symptoms/episode began/occurred 3 day(s) ago. Associated signs and symptoms: Pertinent positives: nausea, weakness. Severity of symptoms: in the emergency department the pain is unchanged, despite home interventions. The patient has been recently been admitted at [facility], was discharged earlier this week. 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 cp Historical: - Allergies: 14:57 No Known Allergies; ap3 - PMHx: 14:57 BPH; diabetes mellitus; Hypercholesterolemia; Hypertensive disorder; ap3 - PSHx: 14:57 back; ap3 - Immunization history:: Client reports having NOT received the Covid vaccine. Flu vaccine is not up to date. - Infectious Disease History:: Denies. - Social history:: Smoking status: Patient denies any tobacco usage or history of. ROS: 15:00 Constitutional: Negative for body aches, chills, fever, poor PO intake, cp 15:00 Eyes: Negative for injury, pain, redness, and discharge, cp 15:00 ENT: Negative for drainage from ear(s), ear pain, sore throat, difficulty swallowing, difficulty handling secretions, 15:00 Cardiovascular: Negative for chest pain, 15:00 Respiratory: Negative for cough, shortness of breath, wheezing, 15:00 Abdomen/GI: Positive for nausea, Negative for abdominal pain, vomiting, diarrhea, constipation, 15:00 : Negative for urinary symptoms, 15:00 Neuro: Positive for headache, weakness, Negative for altered mental status, numbness, syncope, 15:00 All other systems are negative, Exam: 15:05 Constitutional: The patient appears in no acute distress, alert, awake, cp non-diaphoretic, non-toxic, well developed, well nourished, overweight 15:05 Head/Face: Normocephalic, atraumatic. cp 15:05 Eyes: Periorbital structures: appear normal, Pupils: equal, round, and reactive to light and accomodation, Conjunctiva: normal, no exudate, no injection, Sclera: no appreciated abnormality, Lids and lashes: appear normal, bilaterally, 15:05 ENT: External ear(s): are unremarkable, Nose: is normal, Mouth: Lips: moist, Oral mucosa: pink and intact, moist, Posterior pharynx: Airway: no evidence of obstruction, patent, 15:05 Neck: ROM/movement: is normal, is supple, without pain, no range of motions limitations, 15:05 Chest/axilla: Inspection: normal, 15:05 Cardiovascular: Rate: tachycardic, Rhythm: regular, 15:05 Respiratory: the patient does not display signs of respiratory distress, Respirations: normal, no use of accessory muscles, no retractions, labored breathing, is not present, Breath sounds: are clear throughout, no decreased breath sounds, no stridor, no wheezing, 15:05 Abdomen/GI: Inspection: abdomen appears normal, Palpation: abdomen is soft and non-tender, in all quadrants, 15:05 Back: pain, is absent, ROM is normal, 15:05 Skin: cellulitis, is not appreciated, no rash present. 15:05 Neuro: Orientation: to person, place \T\ time. Mentation: is normal, Cerebellar function: is grossly normal, Motor: moves all fours, no focal deficits, Sensation: no obvious gross deficits, 17:03 ECG was reviewed by the Attending Physician. cp Vital Signs: 14:56 Pulse 109; Resp 18; Temp 97.4; Pulse Ox 97% on R/A; Height 5 ft. 7 in. ; ap3 14:59 BP 125 / 61; ap3 18:18 BP 109 / 63; Pulse 88; Resp 16; Pulse Ox 96% ; db 18:30 BP 129 / 63; Pulse 89; Resp 18; Pulse Ox 96% on R/A; db 19:15 BP 110 / 63; Pulse 89; Resp 17; Temp 98(O); Pulse Ox 96% on R/A; Pain 0/10; rg5 20:00 BP 115 / 61; Pulse 92; Resp 17; Pulse Ox 99% on R/A; Pain 0/10; rg5 21:00 BP 112 / 60; Pulse 82; Resp 17; Pulse Ox 97% on R/A; Pain 0/10; rg5 19:15 Pain Scale: Adult rg5 20:00 Pain Scale: Adult rg5 21:00 Pain Scale: Adult rg5 MDM: 15:04 Medical Screening Exam initiated cp 18:20 Data reviewed: vital signs, nurses notes, lab test result(s), EKG, radiologic studies, cp CT scan, plain films, and as a result, I will admit patient. 18:20 Differential diagnosis: hypoglycemia, hyponatremia, intracerebral hemorrhage, cp sinusitis, subarachnoid bleed, subdural hematoma, dehydration, acute kidney failure. Management of patient was discussed with the following: Hospitalist: DR Begum will admit patient after discussion. I considered the following discharge prescriptions or medication management in the emergency department Medications were administered in the Emergency Department. See MAR. Independent interpretation of the following test(s) in the Emergency Department EKG: See my EKG interpretation above. Care significantly affected by the following chronic conditions: Diabetes, Hypertension. Counseling: I had a detailed discussion with the patient and/or guardian regarding the historical points, exam findings, and any diagnostic results supporting the discharge/admit diagnosis, lab results, radiology results, the need for further work-up and treatment in the hospital. Response to treatment: the patient's symptoms have mildly improved after treatment. 01/17 14:54 Order name: Basic Metabolic Panel; Complete Time: 18:04 cp 01/17 18:04 Interpretation: Normal except: GLUC 128; BUN 27; CRE 2.39; GFR 30. cp 01/17 14:54 Order name: CBC with Diff; Complete Time: 16:39 cp 01/17 16:39 Interpretation: Normal except: RBC 4.25; HGB 11.5; HCT 35.9; MCHC 31.9; RDW 18.6; MPV cp 6.7. 01/17 14:54 Order name: LFT's; Complete Time: 18:04 cp 01/17 18:05 Interpretation: Normal except: ALK 39; ALB 2.9; GLOB 4.0; A/G 0.7. cp 01/17 14:54 Order name: Magnesium; Complete Time: 18:04 cp 01/17 14:54 Order name: NT PRO-BNP; Complete Time: 18:04 cp 01/17 14:54 Order name: PT-INR; Complete Time: 16:39 cp 01/17 14:54 Order name: Troponin HS; Complete Time: 18:04 cp 01/17 14:54 Order name: Influenza Screen (a \T\ B); Complete Time: 18:04 cp 01/17 14:54 Order name: SARS RAPID; Complete Time: 18:04 cp 01/17 14:55 Order name: Urinalysis w/ reflexes cp 01/17 20:02 Order name: Urinalysis w/ reflexes EDMS 01/17 20:02 Order name: CBC with Automated Diff EDMS 01/17 20:02 Order name: CBC with Automated Diff EDMS 01/17 20:02 Order name: Comprehensive Metabolic Panel EDMS 01/17 20:02 Order name: Comprehensive Metabolic Panel EDMS 01/17 20:02 Order name: Troponin High Sensitivity EDMS 01/17 20:02 Order name: Troponin High Sensitivity EDMS 01/17 20:02 Order name: Troponin High Sensitivity EDMS 01/17 20:02 Order name: Troponin High Sensitivity EDMS 01/17 14:54 Order name: CT Head Brain wo Cont; Complete Time: 16:09 cp 01/17 16:40 Interpretation: Report reviewed. cp 01/17 14:54 Order name: XRAY Chest (1 view); Complete Time: 16:39 cp 01/17 18:08 Order name: US Rp Exam Complete; Complete Time: 19:53 cp 01/17 14:54 Order name: EKG; Complete Time: 14:55 cp 01/17 14:54 Order name: Cardiac monitoring; Complete Time: 17:06 cp 01/17 14:54 Order name: EKG - Nurse/Tech; Complete Time: 17:00 cp 01/17 14:54 Order name: IV Saline Lock; Complete Time: 17:07 cp 01/17 14:54 Order name: Labs collected and sent; Complete Time: 17:07 cp 01/17 14:54 Order name: O2 Per Protocol; Complete Time: 16:07 cp 01/17 14:54 Order name: O2 Sat Monitoring; Complete Time: 16:07 cp 01/17 15:04 Order name: Accucheck Blood Glucose; Complete Time: 17:00 cp EC:03 Rate is 86 beats/min. Rhythm is regular. MT interval is normal. QRS interval is normal. cp QT interval is normal. T waves are Inverted in lead aVR. Interpreted by me. Reviewed by me. Administered Medications: 16:45 Drug: metoCLOPramide IVP 10 mg IVP once; over 1 to 2 minutes Route: IVP; Site: right db antecubital; 18:33 Follow up: Response: No adverse reaction db 16:45 Drug: diphenhydrAMINE IVP 25 mg IVP once Route: IVP; Site: right antecubital; db 18:33 Follow up: Response: No adverse reaction db 16:45 Drug: NS 0.9% IV 1000 ml IV at 1000 ml once; to be given as a bolus over 60 minutes db Route: IV; Rate: 1000 ml; Site: right antecubital; 18:34 Follow up: Response: No adverse reaction; IV Status: Completed infusion; IV Intake: db 1000ml 18:20 Drug: NS 0.9% IV 1000 ml IV at 1 bolus Per protocol; to be given as a bolus over 60 db minutes Route: IV; Rate: 1 bolus; Site: right antecubital; 19:38 Follow up: IV Status: Completed infusion; IV Intake: 1000ml rg5 18:20 Drug: Ondansetron IVP 4 mg IVP once; over 2 minutes Route: IVP; Site: right antecubital;db 19:38 Follow up: Response: No adverse reaction rg5 18:20 Drug: Famotidine IVP 20 mg IVP once; dilute with 10 mL 0.9% NaCl; give over 2 minutes db Route: IVP; Site: right antecubital; 19:38 Follow up: Response: No adverse reaction rg5 18:20 Drug: Acetaminophen PO 1000 mg PO once Route: PO; db 18:32 Follow up: Response: No adverse reaction db Disposition Summary: 01/18/24 18:18 Hospitalization Ordered Notes: Hospitalization Status: Inpatient Admission cp Provider: Kenan Begum cp Location: Telemetry/MedSurg (Inpatient) cp Condition: Stable cp Problem: new cp Symptoms: have improved cp Bed/Room Type: Standard cp Room Assignment: 413(01/18/24 20:08) rv1 Diagnosis - Acute kidney failure, unspecified cp - Weakness cp - Headache cp Forms: - Medication Reconciliation Form cp - SBAR form cp - Leadership Thank You Letter cp Signatures: Dispatcher [employer] EDMS João Sahu PA PA cp Brandi Sykes RN RN ap3 Gerri Rand, RN RN Niyah Hill rv1 Kun Briceño RN rg5 Corrections: (The following items were deleted from the chart) 14:54 14:54 Head Brain Wo Cont+CT.RAD.BRZ ordered. EDMS EDMS 14:55 14:55 BASIC METABOLIC PANEL+C.LAB.BRZ ordered. EDMS EDMS 14:55 14:55 CBC+H.LAB.BRZ ordered. EDMS EDMS 14:55 14:55 HEPATIC FUNCTION+C.LAB.BRZ ordered. EDMS EDMS 14:55 14:55 MAGNESIUM+C.LAB.BRZ ordered. EDMS EDMS 14:55 14:55 PROBNP+C.LAB.BRZ ordered. EDMS EDMS 14:55 14:55 PROTIME (+INR)+COAG.LAB.BRZ ordered. EDMS EDMS 14:55 14:55 Troponin High Sensitivity+C.LAB.BRZ ordered. EDMS EDMS 14:55 14:55 Influenza Screen (A \T\ B)+BA.LAB.BRZ ordered. EDMS EDMS 14:55 14:55 SARS-COV-2 Antigen Rapid+I.LAB.BRZ ordered. EDMS EDMS 20:08 18:18 cp rv1
--- NOTE | 2024-01-18 18:19 | ER ---
Nurse's Notes [facility] Name: Philip Ya Age: 63 yrs Sex: Male : 1960 Arrival Date: 01/18/2024 Time: 14:31 Bed 15 Private MD: Diagnosis: Acute kidney failure, unspecified;Weakness;Headache Presentation: 01/17 14:56 Chief complaint: asl interpreter [id number]: patient complains of nausea and headache that ap3 started Sunday01/15/24 after discharge from facility. Coronavirus screen: At this time, the client does not indicate any symptoms associated with coronavirus-19. Ebola Screen: No symptoms or risks identified at this time. Initial Sepsis Screen: Does the patient meet any 2 criteria? HR > 90 bpm. Does the patient have a suspected source of infection? No. Patient's initial sepsis screen is negative. Risk Assessment: Do you want to hurt yourself or someone else?. Onset of symptoms was January 15, 2024. 14:56 Method Of Arrival: Wheelchair ap3 14:59 Acuity: CHERELLE 3 ap3 Triage Assessment: 14:58 Headache History: The patient has had previous headaches. General: Appears in no ap3 apparent distress. Behavior is calm, cooperative, appropriate for age. Pain: Complains of pain in head Pain began 2-3 days ago. Also complains of nausea. Neuro: Level of Consciousness is awake, alert, obeys commands, Oriented to person, place, time, situation, Speech is normal, Reports headache. Cardiovascular: Patient's skin is warm and dry. Respiratory: Airway is patent Respiratory effort is even, unlabored, Respiratory pattern is regular, symmetrical. 19:10 Pain: Complains of pain in HEAD Pain currently is 2 out of 10 on a pain scale. Quality rg5 of pain is described as aching. Historical: - Allergies: 14:57 No Known Allergies; ap3 - PMHx: 14:57 BPH; diabetes mellitus; Hypercholesterolemia; Hypertensive disorder; ap3 - PSHx: 14:57 back; ap3 - Immunization history:: Client reports having NOT received the Covid vaccine. Flu vaccine is not up to date. - Infectious Disease History:: Denies. - Social history:: Smoking status: Patient denies any tobacco usage or history of. Screenin:59 Abuse screen: Denies threats or abuse. Nutritional screening: No deficits noted. ap3 Tuberculosis screening: No symptoms or risk factors identified. 19:15 [facility] ED Fall Risk Assessment (Adult) History of falling in the last 3 months, rg5 including since admission Yes- single mechanical fall (1 pt) Confusion or Disorientation No (0 pts) Intoxicated or Sedated No (0 pts) Impaired Gait Yes (1 pt) Mobility Assist Device Used Yes (1 pt) Altered Elimination Yes (1 pt) Score/Fall Risk Level 3 or more points = High Risk Oriented to surroundings, Maintained a safe environment, Educated pt \T\ family on fall prevention, incl call for assistance when getting out of bed, Hourly rounding (assess needs \T\ fall precautionary measures) done. Assessment: 16:26 Reassessment: Patient appears in no apparent distress at this time. Patient and/or db family updated on plan of care and expected duration. Pain level reassessed. Patient is alert, oriented x 3, equal unlabored respirations, skin warm/dry/pink. General: Appears in no apparent distress. comfortable, Behavior is calm, cooperative. Pain: Complains of pain in head. Neuro: Level of Consciousness is awake, alert, obeys commands, Oriented to person, place, time, situation. Respiratory: Airway is patent Respiratory effort is even, unlabored, Respiratory pattern is regular, symmetrical. 18:35 Reassessment: Patient appears in no apparent distress at this time. Patient and/or db family updated on plan of care and expected duration. Pain level reassessed. Patient is alert, oriented x 3, equal unlabored respirations, skin warm/dry/pink. General: Appears in no apparent distress. comfortable, Behavior is calm, cooperative. Neuro: Reports headache. Respiratory: Airway is patent Respiratory effort is even, unlabored, Respiratory pattern is regular, symmetrical. 19:15 General: Appears in no apparent distress. comfortable, Behavior is calm, cooperative. rg5 Pain: Denies pain. Neuro: Level of Consciousness is awake, alert, obeys commands, Oriented to person, place, time, situation. Cardiovascular: Capillary refill < 3 seconds Patient's skin is warm and dry. Respiratory: Airway is patent Trachea midline Respiratory effort is even, unlabored, Respiratory pattern is regular, symmetrical. GI: Abdomen is round obese, Bowel sounds present X 4 quads. Abd is soft and non tender X 4 quads. : Reports inability to void. EENT: No deficits noted. Derm: Skin is fragile, Skin is dry, Skin is normal. Musculoskeletal: Circulation, motion, and sensation intact. Range of motion: intact in all extremities. 20:00 Reassessment: Patient and/or family updated on plan of care and expected duration. Pain rg5 level reassessed. Patient is alert, oriented x 3, equal unlabored respirations, skin warm/dry/pink. Patient states symptoms have improved. 21:00 Reassessment: Patient and/or family updated on plan of care and expected duration. Pain rg5 level reassessed. Patient is alert, oriented x 3, equal unlabored respirations, skin warm/dry/pink. Patient states symptoms have improved. Vital Signs: 14:56 Pulse 109; Resp 18; Temp 97.4; Pulse Ox 97% on R/A; Height 5 ft. 7 in. ; ap3 14:59 BP 125 / 61; ap3 18:18 BP 109 / 63; Pulse 88; Resp 16; Pulse Ox 96% ; db 18:30 BP 129 / 63; Pulse 89; Resp 18; Pulse Ox 96% on R/A; db 19:15 BP 110 / 63; Pulse 89; Resp 17; Temp 98(O); Pulse Ox 96% on R/A; Pain 0/10; rg5 20:00 BP 115 / 61; Pulse 92; Resp 17; Pulse Ox 99% on R/A; Pain 0/10; rg5 21:00 BP 112 / 60; Pulse 82; Resp 17; Pulse Ox 97% on R/A; Pain 0/10; rg5 19:15 Pain Scale: Adult rg5 20:00 Pain Scale: Adult rg5 21:00 Pain Scale: Adult rg5 ED Course: 14:34 Patient arrived in ED. im 14:43 João Sahu PA is PHCP. cp 14:43 João Randhawa MD is Attending Physician. cp 14:59 Triage completed. ap3 14:59 Arm band placed on left wrist. ap3 15:25 CT Head Brain wo Cont In Process Unspecified. EDMS 15:58 XRAY Chest (1 view) In Process Unspecified. EDMS 16:11 Gerri Rand, RN is Primary Nurse. db 16:21 Initial lab(s) drawn, by me, sent to lab. Inserted saline lock: 20 gauge in right db antecubital area, using aseptic technique. Blood collected. Flushed with 10 mL NS. 16:27 Patient has correct armband on for positive identification. Bed in low position. Call db light in reach. Side rails up X 1. Client placed on continuous cardiac and pulse oximetry monitoring. NIBP monitoring applied. monitoring manager on. Pulse ox on. NIBP on. Warm blanket given. Pillow given. 18:18 Kenan Begum MD is Hospitalizing Provider. cp 18:58 US Rp Exam Complete In Process Unspecified. EDMS 19:15 No provider procedures requiring assistance completed. rg5 19:17 Kun Briceño, RN is Primary Nurse. rg5 21:16 Provided Education on: NEEDS FOR ADMIT. rg5 21:16 Patient admitted, IV remains in place. rg5 Administered Medications: 16:45 Drug: metoCLOPramide IVP 10 mg IVP once; over 1 to 2 minutes Route: IVP; Site: right db antecubital; 18:33 Follow up: Response: No adverse reaction db 16:45 Drug: diphenhydrAMINE IVP 25 mg IVP once Route: IVP; Site: right antecubital; db 18:33 Follow up: Response: No adverse reaction db 16:45 Drug: NS 0.9% IV 1000 ml IV at 1000 ml once; to be given as a bolus over 60 minutes db Route: IV; Rate: 1000 ml; Site: right antecubital; 18:34 Follow up: Response: No adverse reaction; IV Status: Completed infusion; IV Intake: db 1000ml 18:20 Drug: NS 0.9% IV 1000 ml IV at 1 bolus Per protocol; to be given as a bolus over 60 db minutes Route: IV; Rate: 1 bolus; Site: right antecubital; 19:38 Follow up: IV Status: Completed infusion; IV Intake: 1000ml rg5 18:20 Drug: Ondansetron IVP 4 mg IVP once; over 2 minutes Route: IVP; Site: right antecubital;db 19:38 Follow up: Response: No adverse reaction rg5 18:20 Drug: Famotidine IVP 20 mg IVP once; dilute with 10 mL 0.9% NaCl; give over 2 minutes db Route: IVP; Site: right antecubital; 19:38 Follow up: Response: No adverse reaction rg5 18:20 Drug: Acetaminophen PO 1000 mg PO once Route: PO; db 18:32 Follow up: Response: No adverse reaction db Medication: 19:15 VIS not applicable for this client. rg5 Intake: 18:34 IV: 1000ml; Total: 1000ml. db 19:38 IV: 1000ml; Total: 2000ml. rg5 Outcome: 18:18 Decision to Hospitalize by Provider. cp 21:16 Admitted to Med/surg accompanied by nurse, rg[place] 21:16 Condition: stable 21:45 Patient left the ED. rg5 Signatures: Dispatcher [employer] EDMS João Sahu PA PA cp Brandi Sykes RN RN ap3 Gerri Rand RN RN Candy Zacarias Rommel, RN RN rg5
--- NOTE | 2024-01-18 19:39 | RAD REPORT ---
EXAMINATION: US RENAL CLINICAL INDICATION: Acute renal failure TECHNIQUE: Real-time ultrasonography of the abdomen was performed. COMPARISON: No prior exam. FINDINGS: Right kidney measures 10 cm with a normal echotexture. Left kidney measures 12 cm with normal echotexture. No hydronephrosis No gross abnormality bladder. IMPRESSION: No significant abnormalities displayed
--- NOTE | 2024-01-18 19:56 | P.HP ---
Certification for Inpatient Patient admitted to: Observation With expected LOS: <2 Midnights Practitioner: I am a practitioner with admitting privileges, knowledge of patient current condition, hospital course, and medical plan of care. Services: Services provided to patient in accordance with Admission requirements found in Title 42 Section 412.3 of the Code of Federal Regulations Patient History Date of Service: 01/19/24 Reason for admission: CP History of Present Illness: 63-year-old male with past medical history of hypertension, hyperlipidemia, diabetes, BPH who was brought to ER with chest discomfort. Patient comes with chest discomfort which is going on for the last 3 days and has been progressively worsening and was brought to ER associated with shortness of breath. No nausea vomiting or diarrhea. No sick contacts. No fever or chills. Patient was assessed in the ER and was found to have acute kidney injury and was admitted for chest pain rule out ACS Allergies No Known Allergies Allergy (Unverified 01/18/24 22:22) - Past Medical/Surgical History Diabetic: Yes Past Medical History: Reviewed- Non-Contributory -: Diabetes hypertension, hyperlipidemia Past Surgical History: Reviewed- Non-Contributory -: Back surgery - Family History Family History: Reviewed- Non-Contributory - Social History Smoking Status: Never smoker Review of Systems 10-point ROS is otherwise unremarkable Physical Examination - Vital Signs Temperature: 97.8 F Blood Pressure: 142/60 Pulse: 78 Respirations: 18 Pulse Ox (%): 94 - Physical Exam General: Alert, Oriented x3, Mild distress, Obese HEENT: Atraumatic, Normocephalic Neck: Supple, 2+ carotid pulse no bruit Respiratory: Clear to auscultation bilaterally, Normal air movement Cardiovascular: Normal pulses, Regular rate/rhythm, Normal S1 S2 Capillary refill: <2 Seconds Gastrointestinal: Soft and benign, W/out hepatosplenomegaly Musculoskeletal: No clubbing, No swelling Integumentary: No rashes Neurological: Normal speech, Normal strength at 5/5 x4 extr, Cranial nerves 3-12 intact - Studies Laboratory Data (last 24 hrs) 01/18/24 01/18/24 01/18/24 16:23 16:23 16:23 WBC 4.70 Hgb 11.5 L Hct 35.9 L Plt Count 294 PT 13.5 H INR 1.21 Sodium 136 Potassium 3.8 BUN 27 H Creatinine 2.39 H Glucose 128 H Magnesium 2.0 Total Bilirubin 0.6 AST 31 ALT 45 Alkaline Phosphatase 39 L Microbiology Data (last 24 hrs): 01/18/24 16:23 Nasopharnyx Influenza Type A Antigen Screen - Final 01/18/24 16:23 Nasopharnyx Influenza Type B Antigen Screen - Final Assessment and Plan - Plan Unstable angina Will trend cardiac enzymes Will monitor telemetry Started on aspirin and statin EKG did not show any acute changes suggestive of ischemia Echocardiogram Hypertension Antihypertensives titrated Continue home medications and titrate as needed Hyperlipidemia Continue statin Acute kidney injury Possibly prerenal Started on IV fluids Monitor renal parameters Electrolytes monitor and replace accordingly Nephrology consult if not better Diabetes Insulin sliding scale Accu-Chek before every meal and at bedtime Anemia of chronic disease Monitor H&H closely GI/DVT prophylaxis Advanced directive full code Discharge Plan: Home Plan to discharge in: 48 Hours - Advance Directives Does patient have a Living Will: No Does patient have a Durable POA for Healthcare: No - Code Status/Comfort Care Code Status: Full Code Time Spent Managing Pts Care (In Minutes): 48
[2024-01-18 20:33] LABS: Specific Gravity 1.007 (1.005-1.030); Sqamous Epithelial <5 /HPF (None Seen); Urine Bacteria <20 /HPF (<20); Urine Bilirubin NEGATIVE (Negative); Urine Blood Negative (Negative); Urine Clarity Turbid (Clear); Urine Color Light-Yellow (Yellow); Urine Crystals Unidentified Few /HPF (None Seen); Urine Culture Reflex Order NOT NEEDED; Urine Glucose NEGATIVE (Negative); Urine Ketones NEGATIVE (Negative); Urine Microscopic Reflex YN ORDER UMIC; Urine Mucus Slight /HPF (None Seen); Urine Nitrite NEGATIVE (Negative); Urine Protein TRACE (Negative); Urine RBC <5 /HPF (None Seen); Urine Urobilinogen Normal (Normal); Urine WBC <5 /HPF (<5); Urine Yeast (Budding) Trace /HPF (None Seen); Urine pH 5.5 (5.0-7.0)
[2024-01-18] MEDS: NA CHLORIDE 0.9% 1,000 ML IV SCH (23:09)
[2024-01-18] MEDS: HEPARIN 5000 UNIT/ML 1 ML VIAL SQ SCH (23:09)
[2024-01-18] MEDS: ACETAMINOPHEN 325 MG TABLET PO PRN (23:12)
[2024-01-19 06:18] LABS: Absolute Eosinophils 0.1 K/uL (0-0.5); Absolute Lymphocytes (CBC) 1.2 K/uL (0.7-4.9); Absolute Monocytes 0.4 K/uL (0.1-1.3); Absolute Neutrophil 2.8 K/uL (1.8-8.0); Basophils % 0.5 % (0-1.3); Hematocrit 32.2 % (39.6-49.0); Hemoglobin 10.4 g/dL (13.6-17.9); Lymphocytes % 25.9 % (15.3-44.8); MCHC 32.2 g/dL (32.0-36.0); MCV 83.9 fL (80-100); MPV 6.9 fL (7.6-11.3); Monocytes % 9.7 % (3.3-12.3); Neutrophils % 61.9 % (41.7-73.7); Nucleated Red Blood Cells % 0.2 % (0-0); Platelets 272 thou/uL (152-406); RBC Red Blood Cell Count 3.84 M/uL (4.33-5.43); Red Cell Distribution Width 18.9 % (12.1-15.2)
[2024-01-19 06:24] LABS: Albumin 2.6 g/dL (3.4-5.0); Albumin/Globulin Ratio 0.7 (1.1-1.8); Anion Gap 10.1 mEq/L (5.0-15.0); Bilirubin Total 0.5 mg/dL (0.2-1.0); Globulin 3.6 g/dL (2.3-3.5); Potassium 4.1 mEq/L (3.5-5.1); Protein, Total 6.2 g/dL (6.4-8.2); Troponin High Sensitivity 15.9 pg/mL (<58.9)
--- NOTE | 2024-01-19 10:43 | P.PN ---
Date of Service: 01/19/24 Subjective Awake, Eating breakfast In good spirits, family reports he appears better no new complaints ROS 10 point ROS as noted above, otherwise negative Physical Exam General: AAOx3, NAD, Obese HEENT: Atraumatic, Normocephalic Neck: Supple, 2+ carotid pulse no bruit Respiratory: Clear to auscultation bilaterally, Normal air movement, on room air Cardiovascular: Normal pulses, NSR, Normal S1 S2 Capillary refill: <2 Seconds Gastrointestinal: Soft on palpation, nontender, W/out hepatosplenomegaly Musculoskeletal: No clubbing, No swelling Integumentary: No rashes Neurological: Normal speech, Normal strength at 5/5 x4 extr, Cranial nerves 3-12 intact Vitals Reviewed Problem list Unstable angina Frequent falls Hypertension Hyperlipidemia Acute kidney injury Diabetes Anemia of chronic disease Assessment and Plan Unstable angina -Troponin 19.5/14.7/15.9 -Continuous telemetry -Daily aspirin and statin -EKG did not show any acute changes suggestive of ischemia -Echocardiogram -Chest xray reports "No acute abnormality is displayed." Frequent falls -Orthostatic vitals -PT -Supportive care -UA negative for infectious process -Head CT reports "No acute intracranial abnormality noted. Opacification of the mastoids unchanged indicate chronic mastoiditis." Hypertension -Antihypertensives titrated -Continue home medications and titrate as needed Hyperlipidemia -Continue statin Acute kidney injury -Possibly prerenal -Started on IV fluids -BUN/creatinine 22/1.47, GFR 53improved with IV fluids -Electrolytes monitor and replace accordingly -Nephrology consult if not better Diabetes -Insulin sliding scale -Accu-Chek before every meal and at bedtime Anemia of chronic disease - H&H Stable GI/DVT prophylaxis Advanced directive full code Discharge Plan: Home Plan to discharge in: 48 Hours
[2024-01-19] MEDS ORDERED: FLU (Fluarix Triv) TS24-25(6MOS UP)/PF 45 MCG/0.5 ML Syringe IM ONE (12:00)
[2024-01-19] MEDS: METOPROLOL TARTRATE 5 MG/5 ML INJ IV PRN (12:51)
[2024-01-19] MEDS: GABAPENTIN 100 MG CAP PO SCH (14:17)
[2024-01-19] MEDS: ROSUVASTATIN 10 MG TAB PO SCH (20:19)
[2024-01-20] MEDS: PANTOPRAZOLE 40MG TABLET PO SCH (06:15)
[2024-01-20] MEDS: FERROUS SULFATE 325 MG TAB PO SCH (08:35)
[2024-01-20] MEDS: METOPROLOL TAR 25 MG TAB PO SCH (08:35)
[2024-01-20] MEDS: LOSARTAN POTASSIUM 50 MG TABLET PO SCH (08:35)
[2024-01-20 08:48] LABS: Anion Gap 11.9 mEq/L (5.0-15.0); Magnesium 1.4 mg/dL (1.6-2.4); Phosphorus 1.7 mg/dL (2.5-4.9); Potassium 3.9 mEq/L (3.5-5.1)
[2024-01-20 08:58] LABS: Absolute Eosinophils 0.1 K/uL (0-0.5); Absolute Lymphocytes (CBC) 1.3 K/uL (0.7-4.9); Absolute Monocytes 0.4 K/uL (0.1-1.3); Absolute Neutrophil 2.5 K/uL (1.8-8.0); Basophils % 0.9 % (0-1.3); Hematocrit 33.5 % (39.6-49.0); Hemoglobin 10.9 g/dL (13.6-17.9); Lymphocytes % 30.6 % (15.3-44.8); MCH 27.2 pg (27.0-35.0); MCHC 32.4 g/dL (32.0-36.0); MCV 83.8 fL (80-100); MPV 6.5 fL (7.6-11.3); Monocytes % 9.6 % (3.3-12.3); Neutrophils % 56.9 % (41.7-73.7); Nucleated Red Blood Cells % 0.2 % (0-0); Platelets 311 thou/uL (152-406); Red Cell Distribution Width 18.4 % (12.1-15.2)
[2024-01-20] MEDS: POTASS/SODIUM PHOSPHATE 1 PKT POWD.PACK PO SCH (09:54)
[2024-01-20] MEDS: MAGNESIUM SULFATE 1 gm IVPB 1 GM/100 ML BAG IV ONE (09:54)
[2024-01-20] MEDS ORDERED: FLU (Fluarix Triv) TS24-25(6MOS UP)/PF 45 MCG/0.5 ML Syringe IM ONE (12:00)
--- NOTE | 2024-01-20 12:48 | P.PN ---
Date of Service: 01/20/24 Subjective Awake, conversing well, siting on the side of the bed Family in the room no new complaints ROS 10 point ROS as noted above, otherwise negative Physical Exam General: Awake, alert, and oriented x3, NAD, Obese HEENT: Atraumatic, Normocephalic Neck: Supple, 2+ carotid pulse no bruit Respiratory: Clear to auscultation bilaterally, Normal air movement, on room air Cardiovascular: Normal pulses, Sinus tachycardia, Normal S1 S2 present Capillary refill: <2 Seconds Gastrointestinal: Soft on palpation, NT, Bowel sounds present Musculoskeletal: No clubbing, No swelling Integumentary: No rashes Neurological: Normal speech, Normal strength at 5/5 x4 extr, Cranial nerves 3-12 intact Vitals Reviewed Problem list Unstable angina Frequent falls Hypertension Hyperlipidemia Acute kidney injury Diabetes Anemia of chronic disease Assessment and Plan Unstable angina Suspect Postural tachycardia -Troponin 19.5/14.7/15.9 -Continuous telemetry -Daily aspirin and statin -EKG did not show any acute changes suggestive of ischemia -Echocardiogram 01/18, Sinus tachycardia -Chest xray reports "No acute abnormality is displayed." -Consulted cardiology -lopressor 12.5 mg daily, and IV PRN Frequent falls -Orthostatic vitals- showing increased HR and BP -PT -Supportive care -UA negative for infectious process -Head CT reports "No acute intracranial abnormality noted. Opacification of the mastoids unchanged indicate chronic mastoiditis." Hypertension -Antihypertensives titrated -Continue home medications and titrate as needed Hyperlipidemia -Continue statin Acute kidney injury -Possibly prerenal -Started on IV fluids -BUN/creatinine 20/0.78, GFR 100improved with IV fluids -Electrolytes monitor and replace accordingly -Nephrology consult if not better Diabetes -Insulin sliding scale -Accu-Chek before every meal and at bedtime Anemia of chronic disease - H&H Stable GI/DVT prophylaxis Advanced directive full code Discharge Plan: Home Plan to discharge in: 48 Hours <Alanna Chang - Last Filed: 01/20/24 12:24> Plan of care discussed with Ms. Chang. Patient with intermittent chest pain. He states he feels much better today. Troponin trended negative. Patient with significant cardiac risk factors. Awaiting cardiology input. Aspirin, statin. Continue losartan <hilda agustin - Last Filed: 01/20/24 16:15>
[2024-01-20] MEDS: ASPIRIN EC 81 MG TAB PO SCH (16:44)
[2024-01-21 06:23] LABS: Absolute Eosinophils 0.1 K/uL (0-0.5); Absolute Lymphocytes (CBC) 1.2 K/uL (0.7-4.9); Absolute Monocytes 0.5 K/uL (0.1-1.3); Basophils % 0.6 % (0-1.3); Eosinophils % 2.6 % (0-4.4); Hematocrit 30.4 % (39.6-49.0); Lymphocytes % 30.8 % (15.3-44.8); MCH 27.6 pg (27.0-35.0); MCHC 32.8 g/dL (32.0-36.0); MCV 84.2 fL (80-100); Monocytes % 13.4 % (3.3-12.3); Neutrophils % 52.6 % (41.7-73.7); Nucleated Red Blood Cells % 0.1 % (0-0); Platelets 301 thou/uL (152-406); RBC Red Blood Cell Count 3.61 M/uL (4.33-5.43); Red Cell Distribution Width 18.5 % (12.1-15.2)
[2024-01-21 06:32] LABS: Anion Gap 10.6 mEq/L (5.0-15.0); Magnesium 1.5 mg/dL (1.6-2.4); Phosphorus 2.4 mg/dL (2.5-4.9); Potassium 3.6 mEq/L (3.5-5.1)
[2024-01-21] MEDS: POTASS/SODIUM PHOSPHATE 1 PKT POWD.PACK PO SCH (09:17)
[2024-01-21] MEDS: POTASSIUM CL SA 10 MEQ TAB PO ONE (09:17)
[2024-01-21] MEDS: FUROSEMIDE 40 MG/4 ML VIAL IV SCH (09:18)
[2024-01-21] MEDS: Magnesium Sulfate 2gm IVPB 2 G/50 ML BAG IV ONE (09:19)
--- NOTE | 2024-01-21 10:41 | P.CNS ---
Date of Consult: 01/21/24 Chief Complaint: CP History of Present Illness: Patient with PMH of HTN, presented with weakness, unable to walk, denies chest pain, no palpitations, report LEIJA and SOB. Allergies No Known Allergies Allergy (Unverified 01/18/24 22:22) Home medications list reviewed: Yes Home Medications: Ferrous Sulfate [Ferrous Sulfate*] 1 tab PO DAILY 01/19/24 Gabapentin [Neurontin] 100 mg PO TID 01/19/24 Losartan Potassium 100 mg PO DAILY 01/19/24 Omeprazole [Prilosec] 40 mg PO DAILY 01/19/24 Rosuvastatin Calcium 20 mg PO BEDTIME 01/19/24 glipiZIDE [Glipizide ER] 2.5 mg PO DAILY 01/19/24 methocarbamoL [Methocarbamol] 1,000 mg PO DAILY 01/19/24 - Past Medical/Surgical History Diabetic: Yes -: Diabetes hypertension, hyperlipidemia -: DM -: ARTHRITIS -: Back surgery - Social History Place of Residence: Home Review of Systems 10-point ROS is otherwise unremarkable Physical Examination Temp Pulse Resp BP Pulse Ox 98.6 F 90 18 109/57 L 91 01/21/24 08:00 01/21/24 09:18 01/21/24 08:00 01/21/24 09:18 01/21/24 08:00 General: Alert, In no apparent distress HEENT: Atraumatic, PERRLA, Mucous membr. moist/pink, EOMI, Sclerae nonicteric Neck: Supple, 2+ carotid pulse no bruit, No LAD, Without JVD or thyroid abnormality Respiratory: Clear to auscultation bilaterally, Normal air movement Cardiovascular: Regular rate/rhythm, Normal S1 S2 Gastrointestinal: Normal bowel sounds, No tenderness Musculoskeletal: No tenderness Integumentary: No rashes Neurological: Normal gait, Normal speech, Normal tone, Normal affect Lymphatics: No axilla or inguinal lymphadenopathy - Problems (1) Sinus tachycardia Current Visit: Yes Status: Acute Plan: agree with Toprol XL 25 mg daily lower Losartan to 50 mg daily add aldactone 25 mg daily continue diuresis until echo is resulted. (2) HTN (hypertension) Current Visit: Yes Status: Acute Plan: as above. (3) Chest pain Current Visit: Yes Status: Acute Plan: Patient denies having chest pain, troponin negative, obtain echo
[2024-01-21] MEDS: FLU (Fluarix Triv) TS24-25(6MOS UP)/PF 45 MCG/0.5 ML Syringe IM ONE (12:00)
--- NOTE | 2024-01-21 18:17 | P.PN ---
Date of Service: 01/21/24 Subjective 3 + pitting Edema to BLE kidney function cleared Spoke with daughter on the phone Family in the room no new complaints ROS 10 point ROS as noted above, otherwise negative Physical Exam General: AAO x3, NAD, Obese HEENT: Atraumatic, Normocephalic Neck: Supple, 2+ carotid pulse no bruit Respiratory: Clear to auscultation bilaterally, Normal air movement, on room air Cardiovascular: Sinus tachycardia, Normal S1 S2 present, Normal pulses Capillary refill: <2 Seconds Gastrointestinal: Soft on palpation, Bowel sounds present, NT Musculoskeletal: No clubbing, 3 + pitting edema Integumentary: No rashes Neurological: Normal speech, Normal strength at 5/5 x4 extr, Cranial nerves 3-12 intact Vitals Reviewed Problem list Unstable angina Suspect Postural tachycardia 3+ pitting edema Frequent falls Hypertension Hyperlipidemia Acute kidney injury Diabetes Anemia of chronic disease Assessment and Plan Unstable angina Suspect Postural tachycardia 3+ pitting edema -Troponin 19.5/14.7/15.9 -Continuous telemetry -Daily aspirin and statin -EKG did not show any acute changes suggestive of ischemia -EKG 01/18, Sinus tachycardia -Echocardiogram results pending -Chest xray reports "No acute abnormality is displayed." -Consulted cardiology -lopressor 12.5 mg daily, and IV PRN -Toprol Xl, losartan 50 mg and aldactone started -Lasix BID til ECHO results -stopped IVF Frequent falls -Orthostatic vitals- showing increased HR and BP -PT -Supportive care -UA negative for infectious process -Head CT reports "No acute intracranial abnormality noted. Opacification of the mastoids unchanged indicate chronic mastoiditis." Hypertension -Antihypertensives titrated -Continue home medications and titrate as needed Hyperlipidemia -Continue statin Acute kidney injury -Possibly prerenal -stopped IV fluids -BUN/creatinine 7/0.78, GFR 100improved with IV fluids -Electrolytes monitor and replace accordingly -Nephrology consult if not better Diabetes -Insulin sliding scale -Accu-Chek before every meal and at bedtime Anemia of chronic disease - H&H Stable GI/DVT prophylaxis Advanced directive full code Discharge Plan: Home Plan to discharge in: 48 Hours
[2024-01-21] MEDS: GUAIFENESIN 600 MG SA TAB PO SCH (22:04)
[2024-01-22 06:11] LABS: Absolute Basophils 0.1 K/uL (0-0.5); Absolute Eosinophils 0.1 K/uL (0-0.5); Absolute Monocytes 0.6 K/uL (0.1-1.3); Absolute Neutrophil 2.4 K/uL (1.8-8.0); Anion Gap 11.7 mEq/L (5.0-15.0); Basophils % 2.2 % (0-1.3); Eosinophils % 2.4 % (0-4.4); Hematocrit 35.4 % (39.6-49.0); Hemoglobin 11.6 g/dL (13.6-17.9); Lymphocytes % 37.4 % (15.3-44.8); MCH 27.4 pg (27.0-35.0); MCHC 32.8 g/dL (32.0-36.0); MCV 83.4 fL (80-100); MPV 7.2 fL (7.6-11.3); Magnesium 1.7 mg/dL (1.6-2.4); Monocytes % 12.2 % (3.3-12.3); Neutrophils % 45.8 % (41.7-73.7); Nucleated Red Blood Cells % 0.2 % (0-0); Phosphorus 3.3 mg/dL (2.5-4.9); Platelets 408 thou/uL (152-406); Potassium 3.7 mEq/L (3.5-5.1); RBC Red Blood Cell Count 4.25 M/uL (4.33-5.43); Red Cell Distribution Width 18.9 % (12.1-15.2)
--- NOTE | 2024-01-22 07:14 | ECHO ---
HEIGHT: 5 ft 5 in WEIGHT: 217 lb 0 oz DATE OF STUDY: 01/21/[address]: Micky Begum DO 2-DIMENSIONAL: YES M.MODE: YES DOPPLER: YES COLOR FLOW: YES TDS: PORTABLE: YES DEFINITY: BUBBLE STUDY: DIAGNOSIS: CHEST PAIN CARDIAC HISTORY: CATHERIZATION: SURGERY: PROSTHETIC VALVE: PACEMAKER: MEASUREMENTS (cm) DIASTOLIC (NORMALS) SYSTOLIC (NORMALS) IVSd 1.1 (0.6-1.2) LA Diam 4.1 (1.9-4.0) LVEF 60-65% LVIDd 4.5 (3.5-5.7) LVIDs 3.2 (2.0-3.5) %FS 29% LVPWd 1.1 (0.6-1.2) Ao Diam 2.5 (2.0-3.7) 2 DIMENSIONAL ASSESSMENT: RIGHT ATRIUM: NORMAL LEFT ATRIUM: NORMAL RIGHT VENTRICLE: NORMAL LEFT VENTRICLE: NORMAL TRICUSPID VALVE: TRACE TRICUSPID REGURGITATION MITRAL VALVE: NORMAL PULMONIC VALVE: NORMAL AORTIC VALVE: NORMAL PERICARDIAL EFFUSION: NONE AORTIC ROOT: NORMAL LEFT VENTRICULAR WALL MOTION: NORMAL DOPPLER/COLOR FLOW: NORMAL COMMENTS: 1. NORMAL LEFT VENTRICULAR SYSTOLIC FUNCTION, EJECTION FRACTION 60-65%, NORMAL WALL MOTION 2. NORMAL DIASTOLIC FUNCTION 3. NORMAL FILLING PRESSURE TECHNOLOGIST: LEEANNA CASILLAS
[2024-01-22] MEDS: SPIRONOLACTONE 25 MG TABLET PO SCH (09:15)
[2024-01-22] MEDS: METOPROLOL XL 25 MG TAB PO SCH (09:15)
[2024-01-22] MEDS: LOSARTAN POTASSIUM 50 MG TABLET PO SCH (09:16)
[2024-01-22] MEDS: POTASSIUM 25 MEQ EFFERV TAB PO ONE (09:16)
[2024-01-22] MEDS: MAGNESIUM SULFATE 1 gm IVPB 1 GM/100 ML BAG IV SCH (09:17)
--- NOTE | 2024-01-22 11:33 | RAD REPORT ---
EXAMINATION: US BILATERAL LOWER EXTREMITY VENOUS DOPPLER CLINICAL INDICATION: JORGE LE edema worse on righ TECHNIQUE: Complete bilateral duplex sonography of the BILATERAL lower extremity veins was performed. The examination included compression for vein patency, color Doppler imaging and flow augmentation in response to distal compression of the distal external iliac, common femoral, femoral, popliteal, t ibial, and great and small saphenous veins. COMPARISON: No prior exam. FINDINGS: Duplex sonography testing of the veins of the BILATERAL lower extremity was performed. Color flow jose ging shows all veins to be compressible with [id number] color filling. Pulsatile and phasic flow is present within all lower extremity deep and superficial veins examined. IMPRESSION: There is no deep vein or superficial vein thrombosis.
--- NOTE | 2024-01-22 13:00 | EKG ---
Test Date: 2024-01-19 Test Time: 13:29:04 Womens Volleyball Coach: DANIA MEASUREMENT RESULTS: Intervals: Rate: 99 NM: 138 QRSD: 84 QT: 326 QTc: 418 [place]: P: 50 NM: 138 QRS: 58 T: 71 INTERPRETIVE STATEMENTS: Normal sinus rhythm Normal ECG Compared to ECG 01/18/2024 16:53:58 ST (T wave) deviation no longer present Electronically Signed On 01-22-24 12:52:23 CDT by Michael Fan
--- NOTE | 2024-01-22 13:03 | EKG ---
Test Date: 2024-01-18 Test Time: 16:53:58 School Fundraising Director: CUATE MEASUREMENT RESULTS: Intervals: Rate: 86 PA: 138 QRSD: 86 QT: 360 QTc: 430 [place]: P: 50 PA: 138 QRS: 59 T: 85 INTERPRETIVE STATEMENTS: Normal sinus rhythm Nonspecific ST abnormality Abnormal ECG Compared to ECG 01/14/2024 17:38:19 Sinus tachycardia no longer present ST (T wave) deviation still present Electronically Signed On 01-22-24 12:53:12 CDT by Michael Fan
--- NOTE | 2024-01-22 14:59 | P.PN ---
Date of Service: 01/22/24 Subjective Lower extremities improving Tachycardic with ambulation/movement No acute events overnight Improving with diuresis ROS 10 point ROS as noted above, otherwise negative Physical Exam General: AAO x3, NAD, Obese HEENT: Atraumatic, Normocephalic Neck: Supple, 2+ carotid pulse no bruit Respiratory: Clear to auscultation bilaterally, Normal air movement, on room air Cardiovascular: Sinus tachycardia, Normal S1 S2 present, Normal pulses Capillary refill: <2 Seconds Gastrointestinal: Soft on palpation, Bowel sounds present, NT Musculoskeletal: No clubbing, 3 + pitting edema Integumentary: No rashes Neurological: Normal speech, Normal strength at 5/5 x4 extr, Cranial nerves 3-12 intact Vitals Reviewed Problem list Unstable angina Suspect Postural tachycardia 3+ pitting edema Frequent falls Hypertension Hyperlipidemia Acute kidney injury Diabetes Anemia of chronic disease Plan Unstable angina Suspect Postural tachycardia -Troponin 19.5/14.7/15.9 -Continuous telemetry -Daily aspirin and statin -EKG did not show any acute changes suggestive of ischemia -EKG 01/18, Sinus tachycardia -Echocardiogram LVEF -Chest xray reports "No acute abnormality is displayed." -Consulted cardiology -Toprol Xl, losartan 50 mg and aldactone started -Lasix BID -stopped IVF Frequent falls -Orthostatic vitals- showing increased HR and BP -PT -Supportive care -UA negative for infectious process -Head CT reports "No acute intracranial abnormality noted. Opacification of the mastoids unchanged indicate chronic mastoiditis." Hypertension -Antihypertensives titrated -Continue home medications and titrate as needed Hyperlipidemia -Continue statin Acute kidney injury -Possibly prerenal -stopped IV fluids -Electrolytes monitor and replace accordingly -Nephrology consult if not better Diabetes -Insulin sliding scale -Accu-Chek before every meal and at bedtime Anemia of chronic disease - H&H Stable GI/DVT prophylaxis Advanced directive full code Discharge Plan: Home Plan to discharge in: 48 Hours
[2024-01-22 23:04] VITALS: BMI 34.0
[2024-01-23 06:11] LABS: Anion Gap 11.6 mEq/L (5.0-15.0); Potassium 3.6 mEq/L (3.5-5.1)
--- NOTE | 2024-01-23 10:12 | P.PN ---
Date of Service: 01/23/24 Subjective Lower extremities improving Tachycardic with ambulation/movement No acute events overnight BP low today and CR elevated compared to yesterday ROS 10 point ROS as noted above, otherwise negative Physical Exam General: AAO x3, NAD, Obese HEENT: Atraumatic, Normocephalic Neck: Supple, 2+ carotid pulse no bruit Respiratory: Clear to auscultation bilaterally, Normal air movement, on room air Cardiovascular: Sinus tachycardia, Normal S1 S2 present, Normal pulses Capillary refill: <2 Seconds Gastrointestinal: Soft on palpation, Bowel sounds present, NT Musculoskeletal: No clubbing, 1 + pitting edema Integumentary: No rashes Neurological: Normal speech, Normal strength at 5/5 x4 extr Vitals Reviewed Problem list Unstable angina Suspect Postural tachycardia 1+ pitting edema Frequent falls Hypertension Hyperlipidemia Acute kidney injury Diabetes Anemia of chronic disease Plan Unstable angina Suspect Postural tachycardia -Troponin 19.5/14.7/15.9 -Continuous telemetry -Daily aspirin and statin -Echocardiogram normal LVEF -Consulted cardiology who is following -Toprol Xl, losartan 50 mg and aldactone started -Lasix stopped, BP soft, CR a little elevated today Frequent falls -Orthostatic vitals- showing increased HR and BP -PT -Supportive care -UA negative for infectious process -Head CT reports "No acute intracranial abnormality noted. Opacification of the mastoids unchanged indicate chronic mastoiditis." Hypertension -Antihypertensives titrated -Continue home medications and titrate as needed Hyperlipidemia -Continue statin Acute kidney injury -Possibly prerenal -stopped IV fluids and now lasix -Electrolytes monitor and replace accordingly -Nephrology consult if not better Diabetes -Insulin sliding scale -Accu-Chek before every meal and at bedtime Anemia of chronic disease - H&H Stable GI/DVT prophylaxis Advanced directive full code Discharge Plan: Home Plan to discharge in: 48 Hours
--- NOTE | 2024-01-23 12:09 | RAD REPORT ---
EXAMINATION: Foot Right 3 View CLINICAL INDICATION: Male, 63 years old. HS MAIN right foot pain/swelling TECHNIQUE: 3 view radiographs of the right foot were obtained. COMPARISON: No prior exam. FINDINGS: No evidence of fracture or dislocation. Normal alignment. Pronounced degenerative changes a t the first metatarsophalangeal articulation with osseous remodeling and joint space loss. Vascular calcifications. Up to moderate anterior to mid foot soft tissue swelling most pronounced dorsally. No significant degenerative changes. IMPRESSION: Pronounced degenerative changes at the first metatarsophalangeal articulation. No other acute finding s.
--- NOTE | 2024-01-23 13:34 | P.PN ---
Subjective Date of Service: 01/23/24 Chief Complaint: CP Subjective: No new changes, No C/O voiced, Tolerating diet, Ambulating, Improving Review of Systems 10-point ROS is otherwise unremarkable Physical Examination - Vital Signs Temperature: 98.4 F Blood Pressure: 104/57 Pulse: 106 Respirations: 16 Pulse Ox (%): 95 - Physical Exam General: Alert, In no apparent distress HEENT: Atraumatic, PERRLA, EOMI Neck: Supple, JVD not distended Respiratory: Clear to auscultation bilaterally, Normal air movement Cardiovascular: Regular rate/rhythm, Normal S1 S2 Gastrointestinal: Normal bowel sounds, No tenderness Musculoskeletal: No tenderness Integumentary: No rashes Neurological: Normal speech, Normal tone, Normal affect Lymphatics: No axilla or inguinal lymphadenopathy - Studies Medications List Reviewed: Yes Assessment And Plan - Current Problems (Diagnosis) (1) Sinus tachycardia Current Visit: Yes Status: Acute Plan: agree with Toprol XL 25 mg daily lower Losartan to 25 mg daily aldactone 25 mg daily (2) HTN (hypertension) Current Visit: Yes Status: Acute Plan: as above. (3) Chest pain Current Visit: Yes Status: Acute Plan: Patient denies having chest pain, troponin negative, Echo shows normal EF.
[2024-01-23] MEDS: ONDANSETRON 4 MG/2 ML VIAL IV PRN (14:21)
[2024-01-23] MEDS: NA CHLORIDE 0.9% 500 ML IV ONE (16:42)
[2024-01-23] MEDS: NA CHLORIDE 0.9% 1,000 ML IV SCH (20:31)
[2024-01-24 07:10] LABS: Anion Gap 10.5 mEq/L (5.0-15.0); Potassium 3.5 mEq/L (3.5-5.1)
[2024-01-24] MEDS ORDERED: LOSARTAN POTASSIUM 50 MG TABLET PO SCH (09:00)
[2024-01-24] MEDS: POTASSIUM CL SA 10 MEQ TAB PO ONE (09:25)
--- NOTE | 2024-01-24 12:05 | P.PN ---
Subjective Date of Service: 01/24/24 Chief Complaint: CP Subjective: No new changes, No C/O voiced, Tolerating diet, Ambulating, Improving Review of Systems 10-point ROS is otherwise unremarkable Physical Examination - Vital Signs Temperature: 97.8 F Blood Pressure: 103/57 Pulse: 94 Respirations: 20 Pulse Ox (%): 100 - Physical Exam General: Alert, In no apparent distress HEENT: Atraumatic, PERRLA, EOMI Neck: Supple, JVD not distended Respiratory: Clear to auscultation bilaterally, Normal air movement Cardiovascular: Regular rate/rhythm, Normal S1 S2 Gastrointestinal: Normal bowel sounds, No tenderness Musculoskeletal: No tenderness Integumentary: No rashes Neurological: Normal speech, Normal tone, Normal affect Lymphatics: No axilla or inguinal lymphadenopathy - Studies Medications List Reviewed: Yes Assessment And Plan - Current Problems (Diagnosis) (1) Sinus tachycardia Current Visit: Yes Status: Acute Plan: Continue Toprol XL 25 mg daily Echo shows normal systolic and diastolic function. (2) HTN (hypertension) Current Visit: Yes Status: Acute Plan: BP os soft, just continue Toprol (3) Chest pain Current Visit: Yes Status: Acute Plan: Patient denies having chest pain, troponin negative, Echo shows normal EF. Cardiology will sign off, follow up as outpatient.
[2024-01-24] MEDS: KETOCONAZOLE CREAM 15 GM TUBE TOP SCH (12:58)
--- NOTE | 2024-01-24 14:59 | P.PN ---
Date of Service: 01/24/24 Subjective Lower extremities improving No acute events overnight Bp improved ROS 10 point ROS as noted above, otherwise negative Physical Exam General: AAO x3, NAD, Obese HEENT: Atraumatic, Normocephalic Neck: Supple, 2+ carotid pulse no bruit Respiratory: Clear to auscultation bilaterally, Normal air movement, on room air Cardiovascular: Sinus tachycardia, Normal S1 S2 present, Normal pulses Capillary refill: <2 Seconds Gastrointestinal: Soft on palpation, Bowel sounds present, NT Musculoskeletal: No clubbing, 1 + pitting edema Integumentary: No rashes Neurological: Normal speech, Normal strength at 5/5 x4 extr Vitals Reviewed Problem list Unstable angina Suspect Postural tachycardia 1+ pitting edema Scaly rash/erythema suspected fungal infection to JORGE ankles/feet Frequent falls Hypertension Hyperlipidemia Acute kidney injury Diabetes Anemia of chronic disease Plan Unstable angina Suspect Postural tachycardia -Troponin 19.5/14.7/15.9 -Continuous telemetry -Daily aspirin and statin -Echocardiogram normal LVEF -Consulted cardiology who is following and now signed off -Toprol Xl, losartan 50 mg and aldactone started previously during admission -BP has been running low, backed off to only toprol XL daily now -Lasix stopped Scaly rash/erythema suspected fungal infection to JORGE ankles/feet Started antifungal cream BID to affected areas Frequent falls -Orthostatic vitals- showing increased HR and BP -PT -Supportive care -UA negative for infectious process -Head CT reports "No acute intracranial abnormality noted. Opacification of the mastoids unchanged indicate chronic mastoiditis." Hypertension -Antihypertensives titrated -Continue home medications and titrate as needed Hyperlipidemia -Continue statin Acute kidney injury -Possibly prerenal -stopped IV fluids and now lasix -Electrolytes monitor and replace accordingly Diabetes -Insulin sliding scale -Accu-Chek before every meal and at bedtime Anemia of chronic disease - H&H Stable GI/DVT prophylaxis Advanced directive full code Discharge Plan: Home Plan to discharge in: 24 Hours
[2024-01-25 08:30] VITALS: BP 107/53; TEMP 97.9
[2024-01-25 09:26] VITALS: O2SAT 93
--- NOTE | 2024-01-25 15:06 | P.DS ---
Admission Date: 01/18/24 Discharge Date: 01/25/24 Disposition: ROUTINE DISCHARGE Discharge Condition: GOOD Reason for Admission: CP Brief History of Present Illness: 63-year-old male with past medical history of hypertension, hyperlipidemia, diabetes, BPH who was brought to ER with chest discomfort. Patient comes with chest discomfort which is going on for the last 3 days and has been progressively worsening and was brought to ER associated with shortness of breath. No nausea vomiting or diarrhea. No sick contacts. No fever or chills. Patient was assessed in the ER and was found to have acute kidney injury and was admitted for chest pain rule out ACS Hospital Course: Patient was admitted to the hospital initially for chest pain, acute kidney injury. He was given IV fluids which initially improved his renal function but he did develop lower extremity edema. He was seen by cardiology who recommended diuresis and obtained an echocardiogram. His echocardiogram was performed on 01/18 and showed normal LVEF, normal wall motion, normal diastolic function, normal filling pressures. He was taken off of the Lasix as his blood pressure was running low and kidney function was elevated again. He was also noted that he has baseline sinus tachycardia which is worse with ambulation, he was started on Toprol XL which has helped to control his tachycardia. Chest x-ray was negative for acute findings, CT head without contrast which was negative for acute findings and his troponins were negative x 3. Renal ultrasound was negative for acute findings Given the lower extremity edema venous Doppler was obtained bilaterally which was negative for DVT, also had complaints of right foot pain since his surgery 3 years ago, x-ray showed pronounced degenerative changes at the first met of pharyngeal articulation, no other acute findings. Patient is been ambulatory with PT stable. His blood pressure running low side we recommend continuing only Toprol-XL for blood pressure at this time until follow-up with primary care doctor or if blood pressures persistently elevated. New medications: Toprol XL for heart rate and blood pressure control Please follow-up with your primary care doctor in 1 to 2 weeks Follow-up with cardiology in 1 to 2 weeks- Dr. Fan Check your blood pressure daily, if the top number is less than 120 continue taking only the Toprol XL, do not take the Toprol XL if the top number is less than 100. If the top number is persistently over 130 can resume taking the losartan that you take at home Problem list Unstable angina Suspect Postural tachycardia 1+ pitting edema Scaly rash/erythema suspected fungal infection to JORGE ankles/feet Frequent falls Hypertension Hyperlipidemia Acute kidney injury Diabetes Anemia of chronic disease Vital Signs/Physical Exam: Temp Pulse Resp BP Pulse Ox 97.9 F 96 H 18 107/53 L 93 01/25/24 08:00 01/25/24 08:00 01/25/24 08:00 01/25/24 08:00 01/25/24 08:00 General: Alert, In no apparent distress, Oriented x3 HEENT: Atraumatic, PERRLA Neck: Supple, JVD not distended Respiratory: Clear to auscultation bilaterally, Normal air movement Cardiovascular: Regular rate/rhythm, Normal S1 S2 Gastrointestinal: Normal bowel sounds, No tenderness Musculoskeletal: No tenderness Integumentary: No rashes Neurological: Normal speech, Normal tone, Normal affect Laboratory Data at Discharge: WBC 5.20 thou/uL (4.3-10.9) 01/22/24 05:36 Hgb 11.6 g/dL (13.6-17.9) L D 01/22/24 05:36 Hct 35.4 % (39.6-49.0) L 01/22/24 05:36 Plt Count 408 thou/uL (152-406) H D 01/22/24 05:36 PT 13.5 SECONDS (9.4-12.5) H 01/18/24 16:23 INR 1.21 01/18/24 16:23 Sodium 136 mEq/L (136-145) 01/25/24 07:09 Potassium 4.0 mEq/L (3.5-5.1) D 01/25/24 07:09 BUN 13 mg/dL (7-18) 01/25/24 07:09 Creatinine 1.33 mg/dL (0.70-1.30) H 01/25/24 07:09 Glucose 107 mg/dL (74-106) H 01/25/24 07:09 Phosphorus 3.3 mg/dL (2.5-4.9) 01/22/24 05:36 Magnesium 2.0 mg/dL (1.6-2.4) 01/23/24 05:33 Total Bilirubin 0.5 mg/dL (0.2-1.0) 01/19/24 05:58 AST 31 U/L (15-37) 01/19/24 05:58 ALT 40 U/L (16-61) 01/19/24 05:58 Alkaline Phosphatase 39 U/L (45-117) L 01/19/24 05:58 Home Medications: Ferrous Sulfate [Ferrous Sulfate*] 1 tab PO DAILY 01/19/24 Gabapentin [Neurontin*] 100 mg PO TID 01/19/24 Omeprazole [Prilosec] 40 mg PO DAILY 01/19/24 Rosuvastatin Calcium 20 mg PO BEDTIME 01/19/24 glipiZIDE [Glipizide ER] 2.5 mg PO DAILY 01/19/24 methocarbamoL [Methocarbamol] 1,000 mg PO DAILY 01/19/24 Ketoconazole [Nizoral Cream*] 1 appl TOP BID tube 01/25/24 Metoprolol Succinate [Toprol Xl*] 25 mg PO [id number] #60 tab 01/25/24 New Medications: Metoprolol Succinate [Toprol Xl*] 25 mg PO [id number] #60 tab Physician Discharge Instructions: Patient was admitted to the hospital initially for chest pain, acute kidney injury. He was given IV fluids which initially improved his renal function but he did develop lower extremity edema. He was seen by cardiology who recommended diuresis and obtained an echocardiogram. His echocardiogram was performed on 01/18 and showed normal LVEF, normal wall motion, normal diastolic function, normal filling pressures. He was taken off of the Lasix as his blood pressure was running low and kidney function was elevated again. He was also noted that he has baseline sinus tachycardia which is worse with ambulation, he was started on Toprol XL which has helped to control his tachycardia. Chest x-ray was negative for acute findings, CT head without contrast which was negative for acute findings and his troponins were negative x 3. Renal ultrasound was negative for acute findings Given the lower extremity edema venous Doppler was obtained bilaterally which wa s negative for DVT, also had complaints of right foot pain since his surgery 3 years ago, x-ray showed pronounced degenerative changes at the first met of pharyngeal articulation, no other acute findings. Patient is been ambulatory with PT stable. His blood pressure running low side we recommend continuing only Toprol-XL for blood pressure at this time until follow-up with primary care doctor or if blood pressures persistently elevated. New medications: Toprol XL for heart rate and blood pressure control Please follow-up with your primary care doctor in 1 to 2 weeks Follow-up with cardiology in 1 to 2 weeks- Dr. Fan Check your blood pressure daily, if the top number is less than 120 continue taking only the Toprol XL, do not take the Toprol XL if the top number is less than 100. If the top number is persistently over 130 can resume taking the losartan that you take at home. Diet: AHA Activity: Ad malik Followup: Michael Fan MD [ACTIVE - CAN ADMIT] - 1-2 Weeks NONE,NONE [Primary Care Provider] - 1-2 Weeks Time spent managing pt's care (in minutes): 48
== END 2024-01-25 10:16 | disposition home or self-care (01) | DRG 683 ==
LOC: ER 14:31 → ERHOLD 19:57 → 4TH 21:13
PROVIDERS: ADMIT Family Medicine; ATTEND Hospitalist
DX: N17.9 Acute kidney failure, unspecified (principal); I20.0 Unstable angina; N40.0 Benign prostatic hyperplasia without lower urinary tract symptoms; E11.9 Type 2 diabetes mellitus without complications; E66.9 Obesity, unspecified; E78.00 Pure hypercholesterolemia, unspecified; I10 Essential (primary) hypertension; L53.8 Other specified erythematous conditions; G90.A Postural orthostatic tachycardia syndrome [POTS]; B35.3 Tinea pedis; D63.8 Anemia in other chronic diseases classified elsewhere; R29.6 Repeated falls; Z91.81 History of falling; Z11.52 Encounter for screening for COVID-19; Z28.310 Unvaccinated for COVID-19; Z68.36 Body mass index [BMI] 36.0-36.9, adult
CPT/HCPCS: 36415; 70450; 71045; 76770; 80048; 80053; 80076; 81001; 82947; 83735; 83880; 84100; 84484; 85025; 85610; 87804; 87811; 93005; 93306; 93970; 94760; 96361; 96374; 96375; 97116; 97161; 97530; 99285; J1200; J1644; J1940; J2405; J2765; J3475; J7030; J7040

== ENCOUNTER 2024-02-01 08:08 | Emergency (ER) | payer SELFPAY ==
[2024-02-01] MEDS ORDERED: NA CHLORIDE 0.9% 1,000 ML ONE (08:39)
[2024-02-01 09:03] LABS: Absolute Basophils 0.2 K/uL (0-0.5); Absolute Eosinophils 0.7 K/uL (0-0.5); Absolute Lymphocytes (CBC) 2.9 K/uL (0.7-4.9); Absolute Neutrophil 3.4 K/uL (1.8-8.0); Basophils % 2.8 % (0-1.3); Eosinophils % 8.9 % (0-4.4); Hematocrit 37.4 % (39.6-49.0); Hemoglobin 11.9 g/dL (13.6-17.9); Lymphocytes % 35.1 % (15.3-44.8); MCH 27.8 pg (27.0-35.0); MCHC 31.9 g/dL (32.0-36.0); MCV 87.2 fL (80-100); MPV 6.6 fL (7.6-11.3); Monocytes % 12.3 % (3.3-12.3); Neutrophils % 40.9 % (41.7-73.7); Nucleated Red Blood Cells % 0.1 % (0-0); Platelets 753 thou/uL (152-406); RBC Red Blood Cell Count 4.29 M/uL (4.33-5.43); Red Cell Distribution Width 19.6 % (12.1-15.2)
[2024-02-01 09:06] LABS: PT Prothrombin Time 12.6 SECONDS (9.4-12.5); Protime INR 1.13
--- NOTE | 2024-02-01 09:11 | RAD REPORT ---
EXAMINATION: ONE VIEW CHEST XR CLINICAL INDICATION: Male, 63 years old.,CHEST PAIN TECHNIQUE: Frontal chest projection is submitted. Examination is limited by patient positioning and t echnique. COMPARISON: 01/18/2024 FINDINGS: The lungs are mildly hypo-inflated and clear. No pneumothorax or sizable effusion. The heart is agai n at the upper limit of normal in size. Mediastinal contours are unremarkable. IMPRESSION: No acute intrathoracic abnormalities.
[2024-02-01 09:20] LABS: Specific Gravity 1.018 (1.005-1.030); Sqamous Epithelial None Seen /HPF (None Seen); Urine Bacteria None Seen /HPF (<20); Urine Bilirubin NEGATIVE (Negative); Urine Blood Negative (Negative); Urine Clarity Turbid (Clear); Urine Color Yellow (Yellow); Urine Crystals Unidentified Few /HPF (None Seen); Urine Culture Reflex Order NOT NEEDED; Urine Glucose NEGATIVE (Negative); Urine Ketones TRACE (Negative); Urine Micro Reflex YN NO BILL MICROSCOPIC; Urine Mucus 2+ /HPF (None Seen); Urine Nitrite NEGATIVE (Negative); Urine Protein 1+ (Negative); Urine RBC <5 /HPF (None Seen); Urine Urobilinogen Normal (Normal); Urine WBC <5 /HPF (<5); Urine WBC Clump Rare /HPF (None Seen); Urine Yeast (Budding) Trace /HPF (None Seen); Urine pH 6.5 (5.0-7.0)
[2024-02-01 09:26] LABS: Anion Gap 9.1 mEq/L (5.0-15.0); Troponin High Sensitivity 9.9 pg/mL (<58.9)
[2024-02-01 09:27] LABS: Potassium 4.1 mEq/L (3.5-5.1)
--- NOTE | 2024-02-01 09:53 | ER ---
Nurse's Notes [facility] Name: Philip Ya Age: 63 yrs Sex: Male : 1960 Arrival Date: 02/01/2024 Time: 08:08 Bed 6 Private MD: Diagnosis: Chest pain, unspecified;Headache Presentation: 01/31 08:25 Chief complaint: Patient states: CP and mild nausea that began last night. Pt reports ss that his symptoms have improved since last night. Coronavirus screen: Client denies travel out of the [place] in the last 14 days. Ebola Screen: Patient denies exposure to infectious person. Patient denies travel to an Ebola-affected area in the 21 days before illness onset. Initial Sepsis Screen: Does the patient meet any 2 criteria? No. Patient's initial sepsis screen is negative. Does the patient have a suspected source of infection? No. Patient's initial sepsis screen is negative. Risk Assessment: Do you want to hurt yourself or someone else? Patient reports no desire to harm self or others. Onset of symptoms was January 31, 2024. 08:25 Method Of Arrival: Ambulatory ss 08:25 Acuity: CHERELLE 3 ss Historical: - Allergies: 08:30 No Known Allergies; ss - PMHx: 08:30 BPH; diabetes mellitus; Hypercholesterolemia; Hypertensive disorder; ss - PSHx: 08:30 back; ss - Infectious Disease History:: Denies. - Social history:: Smoking status: Patient denies any tobacco usage or history of. Screenin:32 Abuse screen: Denies threats or abuse. Denies injuries from another. Nutritional ss screening: No deficits noted. Tuberculosis screening: Never had TB. Assessment: 08:32 General: Appears in no apparent distress. comfortable, Behavior is calm, cooperative, ss Reports fatigue while walking Denies fever, feeling ill, chills. Pain: Complains of pain in chest Pain currently is 4 out of 10 on a pain scale. Pain began last night Is continuous. Neuro: Level of Consciousness is awake, alert, obeys commands, Oriented to person, place, time, situation, Speech is normal. Cardiovascular: Chest pain is described as mild, quality is pressure, is located in substernal area began last night episodes are continuous. Respiratory: Airway is patent Respiratory effort is even, unlabored, Respiratory pattern is regular, symmetrical. GI: Reports denies nausea at this time, but states he did have a little nausea last night. : No signs and/or symptoms were reported regarding the genitourinary system. EENT: Oral mucosa is moist. Derm: Skin is pink, warm \T\ dry. Musculoskeletal:. 09:30 General: Appears in no apparent distress. comfortable. Pain: Denies pain. Neuro: Level ss of Consciousness is awake, alert, obeys commands. Respiratory: Respiratory effort is even, unlabored. Vital Signs: 08:25 BP 148 / 88; Pulse 114; Resp 18; Temp 98.4(O); Pulse Ox 98% on R/A; Weight 89.81 kg; ss Pain 4/10; 09:51 BP 149 / 84; Pulse 89; ec2 10:03 BP 149 / 84; Pulse 80; Resp 17; Temp 98(TE); Pulse Ox 98% on R/A; Pain 0/10; ss 08:25 Pain Scale: Adult ss 10:03 Pain Scale: Adult ss ED Course: 08:09 Patient arrived in ED. ec2 08:10 Aram Bahena MD is Attending Physician. ec2 08:25 Shelby Arrieta, WANDA is Primary Nurse. ss 08:26 EKG done, by ED staff, reviewed by Aram Bahena MD. nh2 08:30 Triage completed. ss 08:30 Arm band placed on right wrist. ss 08:30 Patient has correct armband on for positive identification. Bed in low position. Call ss light in reach. Client placed on continuous cardiac and pulse oximetry monitoring. NIBP monitoring applied. environmental monitoring technician on. 08:31 XRAY Chest (1 view) In Process Unspecified. EDMS 08:57 Inserted saline lock: 20 gauge in right antecubital area, using aseptic technique. ss Blood collected. Flushed with 10 mL NS. 10:03 No provider procedures requiring assistance completed. IV discontinued, intact, ss bleeding controlled, No redness/swelling at site. Pressure dressing applied. Patient maintains SpO2 saturation greater than 95% on room air. Administered Medications: 09:10 Drug: NS 0.9% IV 1000 ml IV at 1000 ml once; to be given as a bolus over 60 minutes ss Route: IV; Rate: 1000 ml; Site: right antecubital; 10:04 Follow up: IV Status: Completed infusion; IV Intake: 1000ml Medication: 08:32 VIS not applicable for this client. ss Intake: 10:04 IV: 1000ml; Total: 1000ml. Outcome: 09:52 Discharge ordered by . [email or web address] 10:04 Discharged to home via wheelchair, with family, 10:04 Condition: good 10:04 Discharge instructions given to patient, family, Instructed on discharge instructions, follow up and referral plans. medication usage, Demonstrated understanding of instructions, follow-up care, medications, Prescriptions given X 1, 10:05 Patient left the ED. Signatures: Dispatcher [employer] Shelby Morgan RN RN Aram Bahena MD MD ec2 Jian Cisneros, Atliio nh2
--- NOTE | 2024-02-01 09:53 | EDPHYS ---
Physician Documentation [facility] Name: Philip Ya Age: 63 yrs Sex: Male : 1960 Arrival Date: 02/01/2024 Time: 08:08 Bed 6 Private MD: ED Physician Aram Bahena HPI: 01/31 08:22 This 63 yrs old Male presents to ER via Unassigned with complaints of Chest ec2 Pain, Headache. 08:22 Patient arrives today for evaluation of left-sided chest pain as well as a headache ec2 ongoing since last night improved this morning. Some decreased p.o. intake and generalized fatigue. Reports recent hospitalization for 1 week and was told he was dehydrated. Reports no abdominal pain. No vomiting, no diarrhea.. Historical: - Allergies: 08:30 No Known Allergies; ss - PMHx: 08:30 BPH; diabetes mellitus; Hypercholesterolemia; Hypertensive disorder; ss - PSHx: 08:30 back; ss - Infectious Disease History:: Denies. - Social history:: Smoking status: Patient denies any tobacco usage or history of. ROS: 08:22 Constitutional: as per hpi ec2 Exam: 08:22 Constitutional: GEN: NAD Head: atraumatic Eyes: EOMI Ears: External ears are ec2 normal. CV: regular rate LUNGS: no respiratory distress ABD: non-distended SKIN: no evidence of rashes MSK: no evidence of trauma Vital Signs: 08:25 BP 148 / 88; Pulse 114; Resp 18; Temp 98.4(O); Pulse Ox 98% on R/A; Weight 89.81 kg; ss Pain 4/10; 09:51 BP 149 / 84; Pulse 89; ec2 10:03 BP 149 / 84; Pulse 80; Resp 17; Temp 98(TE); Pulse Ox 98% on R/A; Pain 0/10; ss 08:25 Pain Scale: Adult ss 10:03 Pain Scale: Adult ss MDM: 08:14 Medical Screening Exam initiated ec2 08:22 Data reviewed: vital signs. ED course: Patient arrives today for chest pain and ec2 headache. Examination as remarkable for well-appearing nontoxic dividual's otherwise in no acute distress. Will obtain an cardiac workup. . 08:28 ED course: EKG independently reviewed and interpreted by me, shows normal sinus rhythm, ec2 rate of 99, no acute ST segment elevations, intervals are nonactionable.. 09:41 ED course: Metabolic profile, CBC, BNP, urine and troponin are nonactionable. Chest ec2 x-ray shows no acute intrathoracic process.. 09:51 ED course: On reassessment patient well-appearing in no acute distress and has no acute ec2 complaints. Will discharge home have follow-up with cardiology. Patient with referral to Dr. Mendiola already.. 01/31 08:11 Order name: Basic Metabolic Panel; Complete Time: 09:41 ec2 01/31 08:11 Order name: CBC with Diff; Complete Time: 09:41 ec2 01/31 08:11 Order name: NT PRO-BNP; Complete Time: 09:41 ec2 01/31 08:11 Order name: PT-INR; Complete Time: 09:41 ec2 01/31 08:11 Order name: Troponin HS; Complete Time: 09:41 ec2 01/31 08:22 Order name: UAM; Complete Time: 09:41 ec2 01/31 08:11 Order name: XRAY Chest (1 view); Complete Time: 09:41 ec2 01/31 08:11 Order name: Cardiac monitoring; Complete Time: 08:26 ec2 01/31 08:11 Order name: EKG - Nurse/Tech; Complete Time: 08:26 ec2 01/31 08:11 Order name: IV Saline Lock; Complete Time: 09:11 ec2 01/31 08:11 Order name: Labs collected and sent; Complete Time: 09:11 ec2 01/31 08:11 Order name: O2 Per Protocol; Complete Time: 08:38 ec2 01/31 08:11 Order name: O2 Sat Monitoring; Complete Time: 08:38 ec2 Administered Medications: 09:10 Drug: NS 0.9% IV 1000 ml IV at 1000 ml once; to be given as a bolus over 60 minutes ss Route: IV; Rate: 1000 ml; Site: right antecubital; 10:04 Follow up: IV Status: Completed infusion; IV Intake: 1000ml ss Disposition Summary: 02/01/24 09:52 Discharge Ordered Notes: Location: Home ec2 Condition: Stable ec2 Diagnosis - Chest pain, unspecified ec2 - Headache ec2 Followup: ec2 - With: Private Physician - When: - Reason: Re-evaluation by your physician Discharge Instructions: - Discharge Summary Sheet ec2 - Nonspecific Chest Pain, Adult ec2 Forms: - Medication Reconciliation Form ec2 - Antibiotic Education ec2 - Prescription Opioid Use ec2 - Patient Portal Instructions ec2 - Leadership Thank You Letter ec2 Prescriptions: - Compazine 10 mg Oral Tablet - take 1 tablet ORAL route every 8 hours As needed; 20 tablet; Refills: 0, ec2 Product Selection Permitted Signatures: Dispatcher [employer] [facility] Shelby Arrieta RN RN ss Aram Bahena MD MD ec2 Corrections: (The following items were deleted from the chart) 08:11 08:11 BASIC METABOLIC PANEL+C.LAB.BRZ ordered. EDMS EDMS 08:11 08:11 CBC+H.LAB.BRZ ordered. EDMS EDMS 08:11 08:11 PROBNP+C.LAB.BRZ ordered. EDMS EDMS 08:11 08:11 PROTIME (+INR)+COAG.LAB.BRZ ordered. EDMS EDMS 08:11 08:11 Troponin High Sensitivity+C.LAB.BRZ ordered. EDMS EDMS 08:11 08:11 Chest Single View+RAD.RAD.BRZ ordered. EDMS EDMS
[2024-02-01 10:14] VITALS: O2SAT 98
[2024-02-01 10:20] VITALS: BP 149/84
[2024-02-01 10:26] VITALS: TEMP 98
--- NOTE | 2024-02-04 12:21 | EKG ---
Test Date: 2024-02-01 Test Time: 08:22:05 Child Care Associate: MARK MEASUREMENT RESULTS: Intervals: Rate: 99 IA: 140 QRSD: 86 QT: 348 QTc: 446 Delta: P: 43 IA: 140 QRS: 25 T: 35 INTERPRETIVE STATEMENTS: Normal sinus rhythm Nonspecific ST abnormality Abnormal ECG Compared to ECG 01/19/2024 13:29:04 ST (T wave) deviation now present Electronically Signed On 02-04-24 12:16:50 LEAF STAMPER by Michael Fan
== END 2024-02-01 10:05 | disposition home or self-care (01) ==
LOC: ER 08:08
DX: R07.9 Chest pain, unspecified (principal); R51.9 Headache, unspecified; I10 Essential (primary) hypertension; E11.9 Type 2 diabetes mellitus without complications
CPT/HCPCS: 36415; 71045; 80048; 81001; 83880; 84484; 85025; 85610; 93005; 96360; 99285; J7030

== ENCOUNTER 2024-12-25 19:13 | Inpatient (IN) | payer SELFPAY ==
--- NOTE | 2024-12-25 20:30 | RAD REPORT ---
EXAMINATION: ONE VIEW CHEST XR CLINICAL INDICATION: low blood pressure TECHNIQUE: Frontal chest projection is submitted. Examination is limited by patient positioning and t echnique. COMPARISON: 02/01/2024 FINDINGS: The lungs are well inflated and clear. The heart is moderately enlarged in size. No displaced fractur es identified. IMPRESSION: No acute intrathoracic abnormalities.
--- NOTE | 2024-12-25 21:03 | RAD REPORT ---
EXAMINATION: US BILATERAL LOWER EXTREMITY VENOUS DOPPLER CLINICAL INDICATION: PAIN TECHNIQUE: Complete bilateral duplex sonography of the BILATERAL lower extremity veins was performed. The examination included compression for vein patency, color Doppler imaging and flow augmentation in response to distal compression of the distal external iliac, common femoral, femoral, popliteal, t ibial, and great and small saphenous veins. COMPARISON: No prior exam. FINDINGS: Duplex sonography testing of the veins of the BILATERAL lower extremity was performed. Color flow jose ging shows all veins to be compressible with [id number] color filling. Pulsatile and phasic flow is present within all lower extremity deep and superficial veins examined. IMPRESSION: There is no deep vein or superficial vein thrombosis.
--- NOTE | 2024-12-25 21:04 | RAD REPORT ---
EXAMINATION:Lower Extremity Arterial Bilat CLINICAL INDICATION: Male, 64 years old. PAIN TECHNIQUE: Arterial duplex ultrasound was performed of the bilateral lower extremities with real-time , color-flow, and spectral wave Doppler evaluation. Ankle brachial indices were not performed. COMPARISON: No prior exam. FINDINGS: Mild plaque throughout the evaluated arterial system. Triphasic waveforms are seen throughout the evaluated left lower extremity arterial system, to the le lissa of the dorsalis pedis artery. No other suspicious findings. Triphasic waveforms are seen throughout the evaluated right lower extremity arterial system, to the l evel of the dorsalis pedis artery. No other suspicious findings. IMPRESSION: No evidence of significant peripheral vascular disease.
[2024-12-25] MEDS ORDERED: NA CHLORIDE 0.9% 1,000 ML ONE (21:10)
[2024-12-25 21:28] LABS: Absolute Lymphocytes (CBC) 1.7 K/uL (0.7-4.9); Hematocrit 41.3 % (39.6-49.0); Hemoglobin 13.7 g/dL (13.6-17.9); MCH 30.1 pg (27.0-35.0); MCHC 33.2 g/dL (32.0-36.0); MCV 90.6 fL (80-100); MPV 7.7 fL (7.6-11.3); Nucleated RBC Absolute Count 0.0 (0-0); Nucleated Red Blood Cells % 0.1 % (0-0); RBC Red Blood Cell Count 4.56 M/uL (4.33-5.43); White Blood Count 7.10 thou/uL (4.3-10.9)
[2024-12-25 21:31] LABS: PT Prothrombin Time 15.7 SECONDS (10-13.0); PTT, Activated Partial Thromb 33.3 SECONDS (27.2-37.4); Protime INR 1.4
[2024-12-25 21:44] LABS: ALT/SGPT 26.0 U/L (16-61); AST/SGOT 35.0 U/L (15-37); Albumin 3.2 g/dL (3.4-5.0); Albumin/Globulin Ratio 0.8 (1.1-1.8); Alkaline Phosphatase 38.0 U/L (45-117); Anion Gap 12.2 mEq/L (5.0-15.0); BUN Blood Urea Nitrogen 46.0 mg/dL (7-18); Globulin 4.0 g/dL (2.3-3.5); Glucose Level 79.0 mg/dL (74-106); NT PRO-BNP 276.0 pg/mL (<125); Potassium 5.2 mEq/L (3.5-5.1); Troponin High Sensitivity 20.1 pg/mL (<58.9)
[2024-12-26] MEDS ORDERED: CEFEPIME 1 GM/VIAL ONE (00:05)
[2024-12-26] MEDS ORDERED: NA CHLORIDE 0.9% 100 ML ONE (00:05)
--- NOTE | 2024-12-26 00:09 | RAD REPORT ---
EXAM DESCRIPTION: Stone Protocol [facility]: CT ABDOMEN PELVIS WITHOUT IV CONTRAST CLINICAL HISTORY: 64 years Male; acute kidney failure; Bed Name: 26 TECHNIQUE: CT of the abdomen and pelvis without contrast. All CT scans at this facility use dose modulation, iterative reconstruction, and/or weight based dosi ng when appropriate to reduce radiation dose to as low as reasonably achievable. COMPARISON: None. FINDINGS: Lower thorax: Bibasilar atelectasis. Abdomen: Stomach: Within normal limits Liver: No focal lesions. No intrahepatic ductal distention. Gallbladder: Nondistended Pancreas: Within normal limits Spleen: Within normal limits Right kidney: No hydronephrosis. No renal or ureteral calculi. Left kidney: No hydronephrosis. No renal or ureteral calculi. Adrenal glands: Within normal limits Vascular structures: Within normal limits (although limited evaluation on noncontrast exam). Lymph nodes: No lymphadenopathy by size criteria Pelvis: Small bowel: No significant distention. Appendix: Within normal limits Colon: No distention or acute pericolonic edema. Colonic diverticulosis. Peritoneum: No free intraperitoneal fluid or air. Bones: No acute bone findings. Bladder: Unremarkable. Reproductive organs: No acute findings. Soft tissues: Small fat-containing bilateral inguinal hernias. Small fat-containing umbilical and sup raumbilical ventral abdominal hernias. Note that evaluation of the bowel and solid organs is somewhat limited due to lack of intravenous and oral contrast. IMPRESSION: 1. No acute abdominopelvic findings. 2. No urinary tract calculi. 3. Colonic diverticulosis without diverticulitis. Electronically signed by: Agustin Glover MD 12/26/2024 12:[address] [facility] Due to temporary technical issues with the PACS/[employer] reporting system, reports are being betito d by the in-house radiologist without review as a courtesy to ensure prompt reporting the interpreting radiologist is fully responsible for the content of the report. Transcribed Date/Time: 12/26/2024 12:08 AM
[2024-12-26 00:39] LABS: Sqamous Epithelial None Seen /HPF (None Seen); Urine Culture Reflex Order NOT NEEDED; Urine Microscopic Reflex YN ORDER UMIC
--- NOTE | 2024-12-26 00:45 | ER ---
Nurse's Notes [facility] Name: Philip Fay Age: 64 yrs Sex: Male : 1960 Arrival Date: 12/25/2024 Time: 19:13 Bed 18 Private MD: Diagnosis: Acute kidney failure, unspecified;Hyperkalemia;Cellulitis of left lower limb;Cellulitis of right lower limb Presentation: 12/25 19:51 Chief complaint: Patient's son or daughter states: sent by PCP for diabetic wounds to [place] bilateral feet. Concern for infection and possible sepsis. Denies fever. Reports nausea. 19:53 Coronavirus screen: At this time, the client does not indicate any symptoms associated muscogee with coronavirus-19. Ebola Screen: No symptoms or risks identified at this time. Risk Assessment: Do you want to hurt yourself or someone else? Patient reports no desire to harm self or others. Onset of symptoms is unknown. 19:53 Method Of Arrival: Ambulatory [place] 19:53 Acuity: CHERELLE 3 mus[place]ogee 12/26 02:22 Initial Sepsis Screen: Does the patient meet any 2 criteria? No. Patient's initial kd3 sepsis screen is negative. Does the patient have a suspected source of infection? No. Patient's initial sepsis screen is negative. Historical: - Allergies: 12/25 19:56 No Known Allergies; me1 - PMHx: 19:56 BPH; diabetes mellitus; Hypercholesterolemia; Hypertensive disorder; me1 - PSHx: 19:56 back; me1 - Immunization history:: Adult Immunizations up to date. - Infectious Disease History:: Denies. - Social history:: Smoking status: Patient denies any tobacco usage or history of. Screenin:25 [facility] ED Fall Risk Assessment (Adult) History of falling in the last 3 months, jb4 including since admission No falls in past 3 months (0 pts) Confusion or Disorientation No (0 pts) Intoxicated or Sedated No (0 pts) Impaired Gait No (0 pts) Mobility Assist Device Used No (0 pt) Altered Elimination No (0 pt) Score/Fall Risk Level 0 - 2 = Low Risk Oriented to surroundings, Maintained a safe environment. Abuse screen: Denies threats or abuse. Nutritional screening: No deficits noted. Tuberculosis screening: No symptoms or risk factors identified. Assessment: 21:05 General: Appears in no apparent distress. comfortable, Behavior is calm, cooperative, jb4 appropriate for age. Pain: Denies pain. Neuro: Level of Consciousness is awake, alert, obeys commands, Oriented to person, place, time, situation. Cardiovascular: Patient's skin is warm and dry. Respiratory: Airway is patent Respiratory effort is even, unlabored, Respiratory pattern is regular, symmetrical. Derm: Skin is intact, Skin is pink, warm \T\ dry. Redness noted to JORGE lower extremities. Musculoskeletal: Circulation, motion, and sensation intact. Range of motion: intact in all extremities. 21:59 Reassessment: Patient appears in no apparent distress at this time. Patient and/or jb4 family updated on plan of care and expected duration. Pain level reassessed. Patient is alert, oriented x 3, equal unlabored respirations, skin warm/dry/pink. 23:30 Reassessment: Patient appears in no apparent distress at this time. Patient and/or jb4 family updated on plan of care and expected duration. Pain level reassessed. Patient is alert, oriented x 3, equal unlabored respirations, skin warm/dry/pink. Bladder scan showed 430 ml. 23:57 Reassessment: harrison placed. 80ml returned. Post residual bladder scan shows 0ml in jb4 bladder. 12/26 01:18 Reassessment: Patient appears in no apparent distress at this time. Patient and/or jb4 family updated on plan of care and expected duration. Pain level reassessed. Patient is alert, oriented x 3, equal unlabored respirations, skin warm/dry/pink. report given to WANDA Drake. Vital Signs: 12/25 19:53 BP 84 / 56; Pulse 106; Resp 18; Temp 98; Pulse Ox 97% ; Weight 95.71 kg; Height 5 ft. 1 me1 in. ; Pain 4/10; 21:25 BP 105 / 79; Pulse 95; Resp 16; Pulse Ox 96% on R/A; jb4 22:01 BP 106 / 67; Pulse 96; Resp 16; Pulse Ox 96% on R/A; jb4 23:15 BP 103 / 90; Pulse 97; Resp 16; Pulse Ox 98% on R/A; jb4 12/26 00:00 BP 109 / 87; Pulse 85; Resp 18; Pulse Ox 98% on R/A; jb4 01:15 BP 125 / 64; Pulse 95; Resp 16; Pulse Ox 100% on R/A; jb4 02:21 BP 102 / 62; Pulse 101; Resp 16; Pulse Ox 97% on R/A; kd3 12/25 19:53 Body Mass Index 39.87 (95.71 kg, 154.94 cm) me1 12/25 19:53 Pain Scale: Adult [place] ED Course: 12/25 19:17 Patient arrived in ED. mr 19:25 João Sahu PA-C is PHCP. cp 19:25 Ashvin Spicer MD is Attending Physician. cp 19:56 Triage completed. me1 19:56 Arm band placed on Patient placed in an exam room. me1 20:26 Chest Single View XRAY In Process Unspecified. EDMS 20:40 EKG done, by biomed tech. reviewed by João Sahu PA-C. ts3 20:42 Nj Rincon, RN is Primary Nurse. jb4 20:51 US Extremity Venous W Compression Jorge In Process Unspecified. EDMS 20:51 US Lower Extremity Arterial Bilateral In Process Unspecified. EDMS 21:05 No provider procedures requiring assistance completed. Initial lab(s) drawn, by vt, jb4 sent to lab. Inserted saline lock: 18 gauge in right antecubital area, using aseptic technique. Blood collected. 21:25 Patient has correct armband on for positive identification. Bed in low position. Call jb4 light in reach. Side rails up X 1. Provided Education on: plan of care. 23:02 CT Stone Protocol In Process Unspecified. EDMS 23:22 Bladder scan completed. Bladder scanner resulted of 418 cc. vk 12/26 00:44 Prince Cedeno MD is Hospitalizing Provider. cp 03:20 Patient admitted, IV remains in place. kd3 Administered Medications: 12/25 21:12 Drug: NS 0.9% IV 1000 ml IV at 1 bolus Per protocol; to be given as a bolus over 60 jb4 minutes Route: IV; Rate: 1 bolus; Site: right antecubital; 22:12 Follow up: Response: No adverse reaction; IV Status: Completed infusion; IV Intake: jb4 1000ml 12/26 00:20 Drug: Cefepime IVPB 1 grams IVPB at 200 ml/hr once over 30 mins; (mix in NS 100 mL) jb4 Route: IVPB; Rate: 200 ml/hr; Infused Over: 30 mins; Site: right antecubital; 02:21 Follow up: IV Status: Completed infusion kd3 00:49 Drug: NS 0.9% IV 1000 ml IV at 75 ml/hr once Route: IV; Rate: 75 ml/hr; Site: right jb4 antecubital; Medication: 12/25 21:25 VIS not applicable for this client. jb4 Intake: 22:12 IV: 1000ml; Total: 1000ml. jb4 Outcome: 12/26 00:45 Decision to Hospitalize by Provider. cp 03:19 Admitted to Med/surg accompanied by nurse, via stretcher, room 217, kd3 03:19 Condition: stable 03:19 Discharge instructions given to patient, family, Instructed on the need for admit, 03:20 Patient left the ED. kd3 Signatures: Dispatcher [employer] EDMS Mary Kay Arcos, Reg Reg mr João Sahu, PAAntoniaC PANj Ayala cp, RN RN jb4 Noelle Persaud RN RN kd3 Noemy Valentine RN RN me1 Elizabeth Wren Taisha ts3 Corrections: (The following items were deleted from the chart) 12/25 19:56 19:51 Chief complaint: Patient's son or daughter states: sent by PCP for diabetic me1 wounds to bilateral feet. Concern for infection and possible sepsis. me1
--- NOTE | 2024-12-26 00:45 | EDPHYS ---
Physician Documentation [facility] Name: Philip Fay Age: 64 yrs Sex: Male : 1960 Arrival Date: 12/25/2024 Time: 19:13 Bed 18 Private MD: ED Physician Ashvin Spicer HPI: 12/25 20:05 This 64 yrs old Male presents to ER via Ambulatory with complaints of Foot cp infection. 20:05 The patient presents with swelling, tenderness, erythema. cp 20:05 The complaints affect the left lower leg and right lower leg. Context: resulted from an cp unknown cause, the patient is able to ambulate, with mild difficulty. Onset: The symptoms/episode began/occurred at an unknown time. Associated signs and symptoms: Pertinent positives: warmth, Pertinent negatives fever. Historical: - Allergies: 19:56 No Known Allergies; me1 - PMHx: 19:56 BPH; diabetes mellitus; Hypercholesterolemia; Hypertensive disorder; me1 - PSHx: 19:56 back; me1 - Immunization history:: Adult Immunizations up to date. - Infectious Disease History:: Denies. - Social history:: Smoking status: Patient denies any tobacco usage or history of. ROS: 20:10 Constitutional: Negative for body aches, chills, fever, poor PO intake, cp 20:10 Eyes: Negative for injury, pain, redness, and discharge, cp 20:10 Cardiovascular: Positive for edema, Negative for chest pain, palpitations, 20:10 Respiratory: Negative for cough, shortness of breath, wheezing, 20:10 Abdomen/GI: Positive for nausea, Negative for abdominal pain, vomiting, diarrhea, constipation, 20:10 Back: Negative for pain at rest, pain with movement, 20:10 : Positive for decreased urine output, 20:10 Skin: Positive for erythema, of the right lower leg and left lower leg, 20:10 Neuro: Negative for altered mental status, 20:10 All other systems are negative, Exam: 20:10 Constitutional: The patient appears in no acute distress, alert, awake, cp non-diaphoretic, non-toxic, well developed, well nourished, overweight 20:10 Head/Face: Normocephalic, atraumatic. cp 20:10 Eyes: Periorbital structures: appear normal, Conjunctiva: normal, no exudate, no injection, Sclera: no appreciated abnormality, Lids and lashes: appear normal, bilaterally, 20:10 ENT: External ear(s): are unremarkable, Nose: is normal, Mouth: Lips: moist, Oral mucosa: moist, Posterior pharynx: Airway: no evidence of obstruction, patent, 20:10 Neck: ROM/movement: pain, is not appreciated, limited range of motion, is not appreciated, 20:10 Chest/axilla: Inspection: normal, 20:10 Cardiovascular: Rate: tachycardic, Rhythm: regular, Edema: ankle edema, that is mild, JVD: is not appreciated, 20:10 Respiratory: the patient does not display signs of respiratory distress, Respirations: normal, no use of accessory muscles, no retractions, labored breathing, is not present, Breath sounds: decreased breath sounds, that are mild, throughout, 20:10 Abdomen/GI: Inspection: obese Bowel sounds: active, all quadrants, Palpation: abdomen is soft and non-tender, in all quadrants, 20:10 Back: pain, is absent, ROM is normal, 20:10 Musculoskeletal/extremity: web spaces of toes bilaterally appear with erythema, skin moist and cracked, odorous discharge. 20:10 Skin: moderate erythema noted left and right lower legs. 20:10 Neuro: Orientation: to person, place \T\ time. Mentation: is normal, Motor: moves all fours, strength is normal, Sensation: no obvious gross deficits, 20:38 ECG was reviewed by the Attending Physician. cp Vital Signs: 19:53 BP 84 / 56; Pulse 106; Resp 18; Temp 98; Pulse Ox 97% ; Weight 95.71 kg; Height 5 ft. 1 me1 in. ; Pain 4/10; 21:25 BP 105 / 79; Pulse 95; Resp 16; Pulse Ox 96% on R/A; jb4 22:01 BP 106 / 67; Pulse 96; Resp 16; Pulse Ox 96% on R/A; jb4 23:15 BP 103 / 90; Pulse 97; Resp 16; Pulse Ox 98% on R/A; jb4 12/26 00:00 BP 109 / 87; Pulse 85; Resp 18; Pulse Ox 98% on R/A; jb4 01:15 BP 125 / 64; Pulse 95; Resp 16; Pulse Ox 100% on R/A; jb4 02:21 BP 102 / 62; Pulse 101; Resp 16; Pulse Ox 97% on R/A; kd3 12/25 19:53 Body Mass Index 39.87 (95.71 kg, 154.94 cm) me1 12/25 19:53 Pain Scale: Adult me1 MDM: 12/25 19:51 Medical Screening Exam initiated cp 21:00 Differential diagnosis: dvt, cellulitis, abscess, sepsis, electrolyte abnormality. 12/26 00:34 ED course: Vital signs stable. Consult with nephrology, Dr. Fraser, recommends cp administration of normal saline at 75 an hour and admission to the hospitalist and reevaluation of labs in the a.m.. 00:45 Data reviewed: vital signs, nurses notes, lab test result(s), EKG, radiologic studies, cp CT scan, plain films, ultrasound, and as a result, I will admit patient. 00:45 Management of patient was discussed with the following: Hospitalist: MR Balderas will cp admit after discussion. I considered the following discharge prescriptions or medication management in the emergency department Medications were administered in the Emergency Department. See MAR. Independent interpretation of the following test(s) in the Emergency Department EKG: See my EKG interpretation above. Care significantly affected by the following chronic conditions: Diabetes, Hypertension. Counseling: I had a detailed discussion with the patient and/or guardian regarding the historical points, exam findings, and any diagnostic results supporting the discharge/admit diagnosis, lab results, radiology results, the need for further work-up and treatment in the hospital. Response to treatment: the patient's symptoms have mildly improved after treatment. 12/25 19:56 Order name: BNP; Complete Time: 22:24 12/25 22:25 Interpretation: Abnormal: NT PRO-BNP 276. 12/25 19:56 Order name: Blood Culture Adult (2) 12/25 19:56 Order name: CBC with Diff; Complete Time: 22:24 12/26 00:18 Interpretation: Normal except: PLT 430; RDW 15.3; MN% 18.2. 12/25 19:56 Order name: CMP; Complete Time: 22:24 12/25 22:25 Interpretation: Normal except: K 5.2; BUN 46; CRE 5.48; GFR 11; ALK 38; ALB 3.2; GLOB cp 4.0; A/G 0.8. 12/25 19:56 Order name: Lactate w/ 2H reflex if indic.; Complete Time: 22:24 12/25 19:56 Order name: Protime (+inr); Complete Time: 22:24 12/26 00:19 Interpretation: Reviewed. 12/25 19:56 Order name: Ptt, Activated; Complete Time: 22:24 12/25 19:56 Order name: Troponin HS; Complete Time: 22:24 12/25 20:09 Order name: UA Rfx Constantine Cult if indicated; Complete Time: 00:40 12/26 00:40 Interpretation: Normal except: [facility] Extremely Turbid; UPROT TRACE; HYAL 10-20. 12/25 21:28 Order name: Glucose, Ancillary Testing; Complete Time: 22:24 EDSC 12/26 02:17 Order name: Basic Metabolic Panel EDSC 12/26 02:17 Order name: Basic Metabolic Panel EDMS 12/26 02:17 Order name: Basic Metabolic Panel EDMS 12/26 02:17 Order name: Basic Metabolic Panel EDMS 12/26 02:17 Order name: CBC with Automated Diff EDMS 12/26 02:17 Order name: CBC with Automated Diff EDMS 12/26 02:17 Order name: CBC with Automated Diff EDMS 12/26 02:17 Order name: CBC with Automated Diff EDMS 12/26 02:28 Order name: Comprehensive Metabolic Panel [facility] 12/25 19:56 Order name: Chest Single View XRAY; Complete Time: 22:24 12/25 20:09 Order name: US Extremity Venous W Compression Zechariah; Complete Time: 22:24 12/25 20:09 Order name: US Lower Extremity Arterial Bilateral; Complete Time: 22:24 12/25 22:27 Order name: CT Stone Protocol 12/26 00:18 Interpretation: Report reviewed. 12/25 19:56 Order name: Accucheck; Complete Time: 21:21 12/25 19:56 Order name: Cardiac monitoring; Complete Time: 20:40 12/25 19:56 Order name: EKG - Nurse/Tech; Complete Time: 20:40 12/25 19:56 Order name: IV Saline Lock - Large Bore; Complete Time: 21:08 12/25 19:56 Order name: Labs collected and sent; Complete Time: 21:08 cp 12/25 19:56 Order name: O2 Per Protocol; Complete Time: 20:42 cp 12/25 19:56 Order name: O2 Sat Monitoring; Complete Time: 20:42 cp 12/25 19:56 Order name: Vital Signs; Complete Time: 20:42 cp 12/25 22:27 Order name: Amaris; Complete Time: 23:59 cp EC/25 20:38 Rate is 100 beats/min. Rhythm is regular. IA interval is normal. QRS interval is cp normal. QT interval is normal. T waves are Inverted in lead aVR. Interpreted by me. Reviewed by me. Administered Medications: 21:12 Drug: NS 0.9% IV 1000 ml IV at 1 bolus Per protocol; to be given as a bolus over 60 jb4 minutes Route: IV; Rate: 1 bolus; Site: right antecubital; 22:12 Follow up: Response: No adverse reaction; IV Status: Completed infusion; IV Intake: jb4 1000ml 12/26 00:20 Drug: Cefepime IVPB 1 grams IVPB at 200 ml/hr once over 30 mins; (mix in NS 100 mL) jb4 Route: IVPB; Rate: 200 ml/hr; Infused Over: 30 mins; Site: right antecubital; 02:21 Follow up: IV Status: Completed infusion kd3 00:49 Drug: NS 0.9% IV 1000 ml IV at 75 ml/hr once Route: IV; Rate: 75 ml/hr; Site: right jb4 antecubital; Disposition Summary: 12/26/24 00:45 Hospitalization Ordered Notes: Hospitalization Status: Inpatient Admission cp Provider: Prince erik Cedeno Location: Telemetry/MedSurg (Inpatient) cp Condition: Stable cp Problem: new cp Symptoms: have improved cp Bed/Room Type: Standard cp Room Assignment: 217(12/26/24 02:23) cg Diagnosis - Acute kidney failure, unspecified cp - Hyperkalemia cp - Cellulitis of left lower limb cp - Cellulitis of right lower limb cp Forms: - Medication Reconciliation Form cp - SBAR form cp - Leadership Thank You Letter cp Signatures: Dispatcher [employer] EDJoão Sebastian PA-C PA-C cp Garcia, Cindy, RN RN cg Bryson, James, RN RN jb4 Noemy Valentine RN RN me1 Noelle Persaud RN kd3 Corrections: (The following items were deleted from the chart) 02:23 00:45 cp cg
[2024-12-26] MEDS ORDERED: NA CHLORIDE 0.9% 1,000 ML ONE (00:46)
[2024-12-26] MEDS ORDERED: MORPHINE 2 MG/ML SYR IV PRN (02:12)
--- NOTE | 2024-12-26 02:17 | P.HP ---
Certification for Inpatient Patient admitted to: Inpatient With expected LOS: >2 Midnights Patient will require the following post-hospital care: None Practitioner: I am a practitioner with admitting privileges, knowledge of patient current condition, hospital course, and medical plan of care. Services: Services provided to patient in accordance with Admission requirements found in Title 42 Section 412.3 of the Code of Federal Regulations <Rip Balderas - Last Filed: 12/26/24 03:27> Patient History Date of Service: 12/26/24 Reason for admission: Bilateral lower extremity cellulitis, KATARZYNA. History of Present Illness: Patient is a 64-year-old male who is predominantly Burkinan-speaking only, past medical history type 2 diabetes mellitus, hypercholesteremia, essential hypertension, was sent to ER by his PCP due to bilateral lower extremities cellulitis and needed further intervention including intravenous antibiotics. A ccording to patient present at bedside, she states for the past couple of weeks, patient initially developed swelling to both legs, and last week with associated erythema. Patient endorses mild pain on bilateral lower extremities, but denies of fever or chills, chest pain, shortness of breath, abdominal pain, nausea or vomiting. Patient states he is able to urinate, states when he urinates he urinates a little bit at a time, and frequent urination, it is unclear if it is related to BPH or kidney failure. Patient BUN 46, creatinine 5.48, GFR 11, potassium 5.2. On admission assessment, patient with bilateral lower extremities with cellulitis. Patient lungs clear bilateral with no adventitious breath sounds. Course in ER. (1) CT abdomen and pelvis without IV contrast. Impression : (A) no acute abdominopelvic findings. (B) No urinary tract calculi. (C) colonic diverticulosis without diverticulitis. (2) bilateral lower extremities venous Doppler. Impression: There is no deep ve in or superficial vein thrombosis. (3) chest x-ray. Impression: No acute intrathoracic abnormalities. (4) bilateral lower extremities arterial. Impression: No evidence of significant peripheral vascular disease. Home medications list reviewed: No - Past Medical/Surgical History Diabetic: Yes -: Type 2 diabetes mellitus. -: Back pain. -: ARTHRITIS -: Hypertension. -: Hypercholesteremia -: Back surgery - Family History Family History: Reviewed- Non-Contributory - Social History Smoking Status: Former smoker Alcohol use: No CD- Drugs: No Caffeine use: No Place of Residence: Home <Rip Balderas - Last Filed: 12/26/24 03:27> Date of Service: 12/26/24 <Conchita Casas - Last Filed: 12/26/24 07:02> Allergies No Known Allergies Allergy (Verified 12/26/24 04:08) Home Medications: Rosuvastatin Calcium 40 mg PO BEDTIME 01/19/24 glipiZIDE [Glipizide ER] 2.5 mg PO BID 01/19/24 Metoprolol Succinate [Toprol Xl*] 25 mg PO [id number] #60 tab 01/25/24 Cephalexin 500 mg PO BID 12/26/24 Fenofibrate Nanocrystallized [Fenofibrate] 145 mg PO DAILY 12/26/24 Losartan Potassium 100 mg PO DAILY 12/26/24 Naproxen 500 mg PO BID 12/26/24 Review of Systems 10-point ROS is otherwise unremarkable Integumentary: Other (Bilateral lower extremities cellulitis.) <Rip Balderas - Last Filed: 12/26/24 03:27> Physical Examination - Physical Exam General: Alert, In no apparent distress, Oriented x3, Cooperative HEENT: Atraumatic, Normocephalic, PERRLA, Mucous membr. moist/pink Neck: Supple, 2+ carotid pulse no bruit, No LAD, Without JVD or thyroid abnormality Respiratory: Clear to auscultation bilaterally, Normal air movement Cardiovascular: Normal pulses, Regular rate/rhythm, Normal S1 S2, No gallops, No rubs, No murmurs Capillary refill: <2 Seconds Gastrointestinal: Normal bowel sounds, Soft and benign, Non-distended, W/out hepatomegaly, No ascites, No tenderness, No masses, No rebound, No guarding Musculoskeletal: Swelling (Bilateral lower extremities cellulitis with pain.) Integumentary: No rashes, No significant lesion, No cyanosis, Tenderness/swelling (Bilateral lower extremity cellulitis.), Erythema (Bilateral lower extremities secondary to cellulitis.), Warmth (Bilateral lower extremities.) Neurological: Normal gait, Normal speech, Normal strength at 5/5 x4 extr, Normal tone, Sensation intact, Cranial nerves 3-12 intact, Normal reflexes 2+, Normal affect, Other (Predominantly Burkinan-speaking only.) Lymphatics: No axilla or inguinal lymphadenopathy External genitalia: Non-tender (Stated by patient.) - Studies Laboratory Data (last 24 hrs) 12/25/24 12/25/24 12/25/24 21:05 21:05 21:05 WBC 7.10 Hgb 13.7 Hct 41.3 Plt Count 430 H PT 15.7 H INR 1.40 APTT 33.3 Sodium 137 Potassium 5.2 H BUN 46 H Creatinine 5.48 H Glucose 79 Total Bilirubin 0.8 AST 35 ALT 26 Alkaline Phosphatase 38 L <Rip Balderas - Last Filed: 12/26/24 03:27> - Studies Laboratory Data (last 24 hrs) 12/25/24 12/25/24 12/25/24 21:05 21:05 21:05 WBC 7.10 Hgb 13.7 Hct 41.3 Plt Count 430 H PT 15.7 H INR 1.40 APTT 33.3 Sodium 137 Potassium 5.2 H BUN 46 H Creatinine 5.48 H Glucose 79 Total Bilirubin 0.8 AST 35 ALT 26 Alkaline Phosphatase 38 L <Conchita Casas - Last Filed: 12/26/24 07:02> Male Exam - Male Exam Inguinal exam: No hernias <Rip Balderas - Last Filed: 12/26/24 03:27> Assessment and Plan - Plan Patient is a 64-year-old male admitted to inpatient with diagnosis of bilateral lower extremities cellulitis, with acute kidney injury. (1) Bilateral lower extremities cellulitis/ KATARZYNA. BUN 46, creatinine 5.48, GFR 11. - Glez catheter inserted. For accurate monitoring of urine output, and possible urinary retention. Patient has history of frequent urination, with minimal urine output with each urination. -IV NS at 75 mL an hour. -Consult provider enrollment specialist . -Ancef 2 g IV every 8 hours. -Morphine 2 mg IV every 4 hours as needed. -Follow-up CMP at 11 AM in the morning. (2)Hyperkalemia 5.2. -Oral Lasix 20 mg IV x 1. - Follow-up with CMP at 11 AM as noted. (3)Chronic type 2 diabetes mellitus. -ACHS with moderate sliding scale coverage. -Will resume home medications when reconciled. (4)Chronic hypertension, and chronic hypercholesteremia. -Resume home medications when reconciled. (5)Explained the entire treatment plan to the patient, and present at the bedside, solicite questions answered and voiced understanding. Discharge Plan: Home Plan to discharge in: Greater than 2 days - Advance Directives Does patient have a Living Will: No Does patient have a Durable POA for Healthcare: No - Code Status/Comfort Care Code Status Assessed: Yes Code Status: Full Code Critical Care: No Time Spent Managing Pts Care (In Minutes): 55 <Rip Balderas - Last Filed: 12/26/24 03:27> Physician Review: Patient Assessed, Agree with Above Assessment and Plan <Conchita Casas - Last Filed: 12/26/24 07:02>
[2024-12-26] MEDS: NA CHLORIDE 0.9% 1,000 ML IV SCH (03:00)
[2024-12-26] MEDS: FUROSEMIDE 20 MG/ 2ML VIAL IV ONE (03:47)
[2024-12-26 04:25] VITALS: BMI 39.9
[2024-12-26] MEDS: INSULIN REGULAR (HUMAN) 100 UNIT/ML SQ SCH (07:30)
[2024-12-26] MEDS: CEFAZOLIN 1 GM in NA CHLORIDE 0.9% 50 ML IVPB SCH (08:58)
[2024-12-26] MEDS ORDERED: CEFAZOLIN SODIUM 2 GM in NA CHLORIDE 0.9% 100 ML IVPB SCH (09:00)
--- NOTE | 2024-12-26 10:51 | P.CNS ---
Date of Consult: 12/26/24 Reason for Consult: ARF Requesting Physician: Rip Balderas Chief Complaint: Bilateral lower extremity cellulitis, KATARZYNA. History of Present Illness: Patient is a 64-year-old male who is predominantly Amharic-speaking only with family member assisting with translation. There is reported hx of chronic HTN, a hx of feeling poorly for the past few weeks with weakness, ACEVEDO, some nausea, and low BP but pt was still taking BP meds in that setting. this culminated in a clinic visit yesterday where in the setting of his symptoms and low BP there, he was sent to the ER with concern for cellulitis or other. essential hypertension, was sent to ER by his PCP due to bilateral lower extremities cellulitis and needed further intervention including intravenous antibiotics. Pt on presentation was found to have ARF, which he denies any prior hx of or of CKD. He does acknowledge taking pain medications and has listed NSAID among home meds. Allergies No Known Allergies Allergy (Verified 12/26/24 04:08) Home Medications: Rosuvastatin Calcium 40 mg PO BEDTIME 01/19/24 glipiZIDE [Glipizide ER] 2.5 mg PO BID 01/19/24 Metoprolol Succinate [Toprol Xl*] 25 mg PO [id number] #60 tab 01/25/24 Cephalexin 500 mg PO BID 12/26/24 Fenofibrate Nanocrystallized [Fenofibrate] 145 mg PO DAILY 12/26/24 Losartan Potassium 100 mg PO DAILY 12/26/24 Naproxen 500 mg PO BID 12/26/24 - Past Medical/Surgical History Diabetic: Yes -: Type 2 diabetes mellitus. -: Back pain. -: ARTHRITIS -: Hypertension. -: Hypercholesteremia -: ARF episode evaluated by Dr. Miranda -: Back surgery - Social History Alcohol use: No CD- Drugs: No Caffeine use: Yes Place of Residence: Home Review of Systems General: Weakness, Malaise Eyes: Unremarkable ENT: Unremarkable Cardiovascular: Edema, As per HPI Gastrointestinal: Nausea, Vomiting, As per HPI Genitourinary: Unremarkable Musculoskeletal: As per HPI Integumentary: As per HPI Neurological: Weakness Physical Examination Temp Pulse Resp BP Pulse Ox 98.5 F 104 H 28 H 100/59 L 95 12/26/24 08:00 12/26/24 08:00 12/26/24 08:00 12/26/24 08:00 12/26/24 08:00 General: In no apparent distress, Other (appears chronically ill) HEENT: Atraumatic, Normocephalic, Other (not needing O2) Neck: Supple Respiratory: Normal air movement, Other (non tachypnec, no rhonchi) Cardiovascular: Regular rate/rhythm, Edema Gastrointestinal: Soft and benign, Non-distended, No tenderness, Other (abd striae) Musculoskeletal: No tenderness, Swelling, Erythema, Other (mild erythema of b/l lower shins, non tender to palpation) Neurological: Normal speech, Normal tone, Other (no tremors or myoclonus) Laboratory Data (last 24 hrs) 12/25/24 12/25/24 12/25/24 21:05 21:05 21:05 WBC 7.10 Hgb 13.7 Hct 41.3 Plt Count 430 H PT 15.7 H INR 1.40 APTT 33.3 Sodium 137 Potassium 5.2 H BUN 46 H Creatinine 5.48 H Glucose 79 Total Bilirubin 0.8 AST 35 ALT 26 Alkaline Phosphatase 38 L Conclusions/Impression: A/P) 1. Stage III acute or sub acute renal failure per ARIS def with presenting Cr level > 4 mg/dl in the setting of hypotension, vol depletion, concurrent use of ARB, NSAIDs and other blunting renal auto-regulation and possibly leading to a degree of ATN 2. Trend renal function test and UOP closely to monitor for renal recovery with IVF hydration and off offending meds 3. No emergent indication for MANUFACTURING FINANCE MANAGER yet 4. UA on admission showed hyaline casts in the setting of above 5. Check a uric acid and CPK as part of w/u 6. LE edema, unspecified -exam does not appear c/w cellulitis, arterial/venous u/s reviewed, management per IM
[2024-12-26 11:25] LABS: ALT/SGPT 28.0 U/L (16-61); AST/SGOT 30.0 U/L (15-37); Albumin 2.7 g/dL (3.4-5.0); Albumin/Globulin Ratio 0.8 (1.1-1.8); Alkaline Phosphatase 35.0 U/L (45-117); Anion Gap 13.8 mEq/L (5.0-15.0); BUN Blood Urea Nitrogen 41.0 mg/dL (7-18); Globulin 3.6 g/dL (2.3-3.5); Glucose Level 96.0 mg/dL (74-106); Potassium 4.8 mEq/L (3.5-5.1); Uric Acid 10.2 mg/dL (3.5-7.2)
[2024-12-26] MEDS: D5 0.9 NS 1,000 ML IV SCH (12:23)
[2024-12-26 12:49] VITALS: O2SAT 96
[2024-12-26] MEDS: ACETAMINOPHEN 500 MG TAB PO PRN (21:48)
[2024-12-27 06:14] LABS: Absolute Lymphocytes (CBC) 1.6 K/uL (0.7-4.9); Hematocrit 36.3 % (39.6-49.0); Hemoglobin 12.0 g/dL (13.6-17.9); MCH 30.0 pg (27.0-35.0); MCHC 33.0 g/dL (32.0-36.0); MCV 90.8 fL (80-100); MPV 7.7 fL (7.6-11.3); Nucleated RBC Absolute Count 0.0 (0-0); Nucleated Red Blood Cells % 0.1 % (0-0); RBC Red Blood Cell Count 4.00 M/uL (4.33-5.43); White Blood Count 7.10 thou/uL (4.3-10.9)
[2024-12-27 06:29] LABS: Anion Gap 9.4 mEq/L (5.0-15.0); BUN Blood Urea Nitrogen 32.0 mg/dL (7-18); Glucose Level 106.0 mg/dL (74-106); Potassium 4.4 mEq/L (3.5-5.1)
--- NOTE | 2024-12-27 12:21 | P.PN ---
Date of Service: 12/27/24 Subjective: Seen resting in bed. Redness in his leg appears to be improved. He denies pain, fevers, chills. His is at bedside. He denies any pain over his right lower leg. his daughter is acting as the neurology nurse over the phone. Review of Systems 10-point ROS is otherwise unremarkable Integumentary: Other hyperemia of bilateral leg Physical Examination - Physical Exam General: Alert, In no apparent distress, Oriented x3, Cooperative HEENT: Atraumatic, Normocephalic, PERRLA, Mucous membr. moist/pink Neck: Supple, 2+ carotid pulse no bruit, No LAD, Without JVD or thyroid abnormality Respiratory: Clear to auscultation bilaterally, Normal air movement Cardiovascular: Normal pulses, Regular rate/rhythm, Normal S1 S2, No gallops, No rubs, No murmurs Capillary refill: <2 Seconds Gastrointestinal: Normal bowel sounds, Soft and benign, Non-distended, W/out hepatomegaly, No ascites, No tenderness, No masses, No rebound, No guarding Musculoskeletal: Swelling (Bilateral lower extremities cellulitis with pain.) Integumentary: No rashes, No significant lesion, No cyanosis, Tenderness/swelling (Bilateral lower extremity cellulitis.), Erythema (Bilateral lower extremities secondary to cellulitis.), Warmth (Bilateral lower extremities.) Neurological: Normal gait, Normal speech, Normal strength at 5/5 x4 extr, Normal tone, Sensation intact, Cranial nerves 3-12 intact, Normal reflexes 2+, Normal affect, Other (Predominantly Faroese-speaking only.) Lymphatics: No axilla or inguinal lymphadenopathy External genitalia: Non-tender (Stated by patient.) - Studies Laboratory Data (last 24 hrs) 12/25/24 12/25/24 12/25/24 21:05 21:05 21:05 WBC 7.10 Hgb 13.7 Hct 41.3 Plt Count 430 H PT 15.7 H INR 1.40 APTT 33.3 Sodium 137 Potassium 5.2 H BUN 46 H Creatinine 5.48 H Glucose 79 Total Bilirubin 0.8 AST 35 ALT 26 Alkaline Phosphatase 38 L - Studies Laboratory Data (last 24 hrs) 12/25/24 12/25/24 12/25/24 21:05 21:05 21:05 WBC 7.10 Hgb 13.7 Hct 41.3 Plt Count 430 H PT 15.7 H INR 1.40 APTT 33.3 Sodium 137 Potassium 5.2 H BUN 46 H Creatinine 5.48 H Glucose 79 Total Bilirubin 0.8 AST 35 ALT 26 Alkaline Phosphatase 38 L Assessment and Plan - Plan Patient is a 64-year-old male admitted to inpatient with diagnosis of bilateral lower extremities cellulitis, with acute kidney injury. Bilateral lower extremities cellulitis / stasis dermatitis Right leg wound KATARZYNA. Hypokalemia Type 2 diabetes mellitus Hypertension Hypercholesterolemia 12/27 - Hyperkalemia resolved - Obtain CRP and procalcitonin, likely venous stasis dermatitis - Right leg wound, Xeroform with silicone foam top. Follow-up with wound care center - Switch Ancef to Keflex if CRP and procalcitonin are negative. - Appreciate nephrology recommendations. avoid nephrotoxins. Creatinine continues to improve with IV fluid - Glez catheter inserted. For accurate monitoring of urine output, and possible urinary retention. Patient has history of frequent urination, with minimal urine output with each urination. -IV NS at 75 mL an hour. -Consult golf course assistant . -Ancef 2 g IV every 8 hours. -Morphine 2 mg IV every 4 hours as needed. -Follow-up CMP at 11 AM in the morning. Hyperkalemia 5.2. -Oral Lasix 20 mg IV x 1. - Follow-up with CMP at 11 AM as noted. Chronic type 2 diabetes mellitus. -ACHS with moderate sliding scale coverage. -Will resume home medications when reconciled. Chronic hypertension, and chronic hypercholesteremia. -Resume home medications when reconciled. DVT prophylaxis with heparin Discharge Plan: Home Plan to discharge in: Greater than 2 days - Advance Directives Does patient have a Living Will: No Does patient have a Durable POA for Healthcare: No - Code Status/Comfort Care Code Status Assessed: Yes Code Status: Full Code
[2024-12-27] MEDS: HEPARIN 5000 UNIT/ML 1 ML VIAL SQ SCH (21:17)
--- NOTE | 2024-12-27 21:34 | P.PN ---
Date of Service: 12/27/24 Vital Signs Temp Pulse Resp BP Pulse Ox 98.5 F 114 H 19 99/53 L 96 12/27/24 20:00 12/27/24 20:00 12/27/24 20:00 12/27/24 20:00 12/27/24 20:00 Medications Acetaminophen (Acetaminophen 500 Mg Tab) 500 mg PO Q6H PRN PRN Reason: Pain scale 2-4 (Mild) Last Admin: 12/26/24 21:48 Dose: 500 mg Heparin Sodium (Porcine) (Heparin 5000 Unit/Ml 1 Ml Vial) 5,000 unit SQ Q12HR JESÚS Last Admin: 12/27/24 21:17 Dose: 5,000 unit Cefazolin Sodium 1 gm/ Sodium (Chloride) 50 mls @ 100 mls/hr IVPB Q12HR JESÚS Last Admin: 12/27/24 21:17 Dose: 50 mls Dextrose/Sodium Chloride (D5w Ns 1-Liter Bag) 1,000 mls @ 75 mls/hr IV .[id number] [facility] Last Admin: 12/27/24 16:49 Dose: 1,000 mls Insulin Human Regular (Insulin Regular (Human) 100 Unit/Ml) 0 unit SQ ACHS [facility]; Protocol Last Admin: 12/27/24 21:00 Dose: Not Given Microbiology Results 12/25/24 21:05 Blood - Blood Aerobic Blood Culture - Preliminary No growth in 24 hours. 12/25/24 21:05 Blood - Blood Anaerobic Blood Culture - Preliminary No growth in 24 hours. 12/25/24 20:50 Blood - Blood Aerobic Blood Culture - Preliminary No growth in 24 hours. 12/25/24 20:50 Blood - Blood Anaerobic Blood Culture - Preliminary No growth in 24 hours. Assessment/ Plan: Nephrology No dyspnea No chest pain No acute events overnight Persistent knee pain Reports urinary symptoms with hesitancy. Nocturia X3. Reports Aleve/ Motrin 3-4 per day for knee pain. Vitals, medications, blood work and imaging reviewed in the chart NAD. MMM. NCAT. Normal Respiratory Effort. S1S2. ND Abd. No C/C. Trace to 1+ LE Edema. No rash. AAO. Normal speech. Glez medium. A/P Patient is a 64-year-old male admitted to inpatient with diagnosis of bilateral lower extremities cellulitis, with acute kidney injury. Stage III KATARZYNA in the setting of hypovolemia and NSAIDs CKD II/III with Proteinuria -No NSAIDs -Change IVF to 1/2NS HTN with CKD complicated by hypotension -Hold antihypertensives at this time DM II with CKD -RISS Anemia in chronic illness -Monitor H&H BPH with LUTS -Continue Glez RLE Wound BL LE Cellulitis/ Stasis Dermatitis -Continue Abx Hospitalist note reviewed
[2024-12-28] MEDS: NACHLORIDE 0.45% 1,000 ML IV SCH (00:30)
[2024-12-28 04:59] LABS: MCV 90.5 fL (80-100); Nucleated RBC Absolute Count 0.0 (0-0); Nucleated Red Blood Cells % 0.1 % (0-0)
[2024-12-28 05:10] LABS: Absolute Lymphocytes (CBC) 2.6 K/uL (0.7-4.9); Hematocrit 36.0 % (39.6-49.0); Hemoglobin 12.2 g/dL (13.6-17.9); MCH 30.6 pg (27.0-35.0); MCHC 33.8 g/dL (32.0-36.0); MPV 7.2 fL (7.6-11.3); RBC Red Blood Cell Count 3.98 M/uL (4.33-5.43); White Blood Count 7.70 thou/uL (4.3-10.9)
[2024-12-28 05:11] LABS: Anion Gap 12.2 mEq/L (5.0-15.0); BUN Blood Urea Nitrogen 20.0 mg/dL (7-18); C-Reactive Protein 61.4 mg/L (<3.00); Glucose Level 96.0 mg/dL (74-106); Potassium 4.2 mEq/L (3.5-5.1)
--- NOTE | 2024-12-28 07:29 | P.PN ---
Date of Service: 12/28/24 Subjective: Seen resting in bed. He is doing better today. He wants to go home. Tolerating his diet. Voiding and having regular bowel movements. We discussed continuing wound care on his leg until he can see a wound care physician Review of Systems 10-point ROS is otherwise unremarkable Integumentary: Other hyperemia of bilateral leg Physical Examination - Physical Exam General: Alert, In no apparent distress, Oriented x3, Cooperative HEENT: Atraumatic, Normocephalic, PERRLA, Mucous membr. moist/pink Neck: Supple, 2+ carotid pulse no bruit, No LAD, Without JVD or thyroid abnormality Respiratory: Clear to auscultation bilaterally, Normal air movement Cardiovascular: Normal pulses, Regular rate/rhythm, Normal S1 S2, No gallops, No rubs, No murmurs Capillary refill: <2 Seconds Gastrointestinal: Normal bowel sounds, Soft and benign, Non-distended, W/out hepatomegaly, No ascites, No tenderness, No masses, No rebound, No guarding Musculoskeletal: Swelling (Bilateral lower extremities cellulitis with pain.) Integumentary: No rashes, No significant lesion, No cyanosis, Tenderness/swelling (Bilateral lower extremity cellulitis.), Erythema (Bilateral lower extremities secondary to cellulitis.), Warmth (Bilateral lower extremities.) Neurological: Normal gait, Normal speech, Normal strength at 5/5 x4 extr, Normal tone, Sensation intact, Cranial nerves 3-12 intact, Normal reflexes 2+, Normal affect, Other (Predominantly Tajik-speaking only.) Lymphatics: No axilla or inguinal lymphadenopathy External genitalia: Non-tender (Stated by patient.) - Studies Laboratory Data (last 24 hrs) 12/25/24 12/25/24 12/25/24 21:05 21:05 21:05 WBC 7.10 Hgb 13.7 Hct 41.3 Plt Count 430 H PT 15.7 H INR 1.40 APTT 33.3 Sodium 137 Potassium 5.2 H BUN 46 H Creatinine 5.48 H Glucose 79 Total Bilirubin 0.8 AST 35 ALT 26 Alkaline Phosphatase 38 L - Studies Laboratory Data (last 24 hrs) 12/25/24 12/25/24 12/25/24 21:05 21:05 21:05 WBC 7.10 Hgb 13.7 Hct 41.3 Plt Count 430 H PT 15.7 H INR 1.40 APTT 33.3 Sodium 137 Potassium 5.2 H BUN 46 H Creatinine 5.48 H Glucose 79 Total Bilirubin 0.8 AST 35 ALT 26 Alkaline Phosphatase 38 L Assessment and Plan - Plan Patient is a 64-year-old male admitted to inpatient with diagnosis of bilateral lower extremities cellulitis, with acute kidney injury. Bilateral lower extremities cellulitis / stasis dermatitis Right leg wound KATARZYNA. Hypokalemia Type 2 diabetes mellitus Hypertension Hypercholesterolemia 12/28 - Kidney function markedly improved. Follow-up with nephrology. Avoid nephrotoxins including ibuprofen and naproxen - Continue wound care as instructed the patient - Continue Keflex for 10 more days - Discussed with patient. Will have close follow-up with his PCP and our wound care center - Stop losartan upon discharge. Follow-up with nephrology and PCP. Now on metoprolol 12/27 - Hyperkalemia resolved - Obtain CRP and procalcitonin, likely venous stasis dermatitis - Right leg wound, Xeroform with silicone foam top. Follow-up with wound care center - Switch Ancef to Keflex if CRP and procalcitonin are negative. - Appreciate nephrology recommendations. avoid nephrotoxins. Creatinine continues to improve with IV fluid - Glez catheter inserted. For accurate monitoring of urine output, and possible urinary retention. Patient has history of frequent urination, with minimal urine output with each urination. -IV NS at 75 mL an hour. -Consult inspector firearms . -Ancef 2 g IV every 8 hours. -Morphine 2 mg IV every 4 hours as needed. -Follow-up CMP at 11 AM in the morning. Hyperkalemia 5.2. -Oral Lasix 20 mg IV x 1. - Follow-up with CMP at 11 AM as noted. Chronic type 2 diabetes mellitus. -ACHS with moderate sliding scale coverage. -Will resume home medications when reconciled. Chronic hypertension, and chronic hypercholesteremia. -Resume home medications when reconciled. DVT prophylaxis with heparin Discharge Plan: Home Plan to discharge in: Greater than 2 days - Advance Directives Does patient have a Living Will: No Does patient have a Durable POA for Healthcare: No - Code Status/Comfort Care Code Status Assessed: Yes Code Status: Full Code
[2024-12-28] MEDS: SODIUM BICARB 325 MG TAB PO ONE (12:02)
[2024-12-28] MEDS: METOPROLOL XL 25 MG TAB PO SCH (12:02)
[2024-12-28 12:04] VITALS: BP 116/57
--- NOTE | 2024-12-28 12:30 | P.DS ---
Admission Date: 12/26/24 Discharge Date: 12/28/24 Disposition: ROUTINE DISCHARGE Reason for Admission: Bilateral lower extremity cellulitis, KATARZYNA. Brief History of Present Illness: Patient is a 64-year-old male who is predominantly Argentine-speaking only, past medical history type 2 diabetes mellitus, hypercholesteremia, essential hypertension, was sent to ER by his PCP due to bilateral lower extremities cellulitis and needed further intervention including intravenous antibiotics. According to patient present at bedside, she states for the past couple of weeks, patient initially developed swelling to both legs, and last week with associated erythema. Patient endorses mild pain on bilateral lower extremities, but denies of fever or chills, chest pain, shortness of breath, abdominal pain, nausea or vomiting. Patient states he is able to urinate, states when he urinates he urinates a little bit at a time, and frequent urination, it is unclear if it is related to BPH or kidney failure. Patient BUN 46, creatinine 5.48, GFR 11, potassium 5.2. On admission assessment, patient with bilateral lower extremities with cellulitis. Patient lungs clear bilateral with no adventitious breath sounds. Course in ER. (1) CT abdomen and pelvis without IV contrast. Impression : (A) no acute abdominopelvic findings. (B) No urinary tract calculi. (C) colonic diverticulosis without diverticulitis. (2) bilateral lower extremities venous Doppler. Impression: There is no deep vein or superficial vein thrombosis. (3) chest x-ray. Impression: No acute intrathoracic abnormalities. (4) bilateral lower extremities arterial. Impression: No evidence of significant peripheral vascular disease. Hospital Course: Physical Examination - Physical Exam General: Alert, In no apparent distress, Oriented x3, Cooperative HEENT: Atraumatic, Normocephalic, PERRLA, Mucous membr. moist/pink Neck: Supple, 2+ carotid pulse no bruit, No LAD, Without JVD or thyroid abnormality Respiratory: Clear to auscultation bilaterally, Normal air movement Cardiovascular: Normal pulses, Regular rate/rhythm, Normal S1 S2, No gallops, No rubs, No murmurs Capillary refill: <2 Seconds Gastrointestinal: Normal bowel sounds, Soft and benign, Non-distended, W/out hepatomegaly, No ascites, No tenderness, No masses, No rebound, No guarding Musculoskeletal: Swelling (Bilateral lower extremities cellulitis with pain.) Integumentary: No rashes, No significant lesion, No cyanosis, Tenderness/swelling (Bilateral lower extremity cellulitis.), Erythema (Bilateral lower extremities secondary to cellulitis.), Warmth (Bilateral lower extremities.) Neurological: Normal gait, Normal speech, Normal strength at 5/5 x4 extr, Normal tone, Sensation intact, Cranial nerves 3-12 intact, Normal reflexes 2+, Normal affect, Other (Predominantly Argentine-speaking only.) Lymphatics: No axilla or inguinal lymphadenopathy External genitalia: Non-tender (Stated by patient.) - Studies Laboratory Data (last 24 hrs) 12/25/24 12/25/24 12/25/24 21:05 21:05 21:05 WBC 7.10 Hgb 13.7 Hct 41.3 Plt Count 430 H PT 15.7 H INR 1.40 APTT 33.3 Sodium 137 Potassium 5.2 H BUN 46 H Creatinine 5.48 H Glucose 79 Total Bilirubin 0.8 AST 35 ALT 26 Alkaline Phosphatase 38 L - Studies Laboratory Data (last 24 hrs) 12/25/24 12/25/24 12/25/24 21:05 21:05 21:05 WBC 7.10 Hgb 13.7 Hct 41.3 Plt Count 430 H PT 15.7 H INR 1.40 APTT 33.3 Sodium 137 Potassium 5.2 H BUN 46 H Creatinine 5.48 H Glucose 79 Total Bilirubin 0.8 AST 35 ALT 26 Alkaline Phosphatase 38 L Assessment and Plan - Plan Patient is a 64-year-old male admitted to inpatient with diagnosis of bilateral lower extremities cellulitis, with acute kidney injury. Bilateral lower extremities cellulitis / stasis dermatitis Right leg wound KATARZYNA. Hypokalemia Type 2 diabetes mellitus Hypertension Hypercholesterolemia 12/28 - Kidney function markedly improved. Follow-up with nephrology. Avoid nephrotoxins including ibuprofen and naproxen - Continue wound care as instructed the patient - Continue Keflex for 10 more days - Discussed with patient. Will have close follow-up with his PCP and our wound care center - Stop losartan upon discharge. Follow-up with nephrology and PCP. Now on metoprolol 12/27 - Hyperkalemia resolved - Obtain CRP and procalcitonin, likely venous stasis dermatitis - Right leg wound, Xeroform with silicone foam top. Follow-up with wound care center - Switch Ancef to Keflex if CRP and procalcitonin are negative. - Appreciate nephrology recommendations. avoid nephrotoxins. Creatinine continues to improve with IV fluid - Glez catheter inserted. For accurate monitoring of urine output, and possible urinary retention. Patient has history of frequent urination, with minimal urine output with each urination. -IV NS at 75 mL an hour. -Consult sandwich hand . -Ancef 2 g IV every 8 hours. -Morphine 2 mg IV every 4 hours as needed. -Follow-up CMP at 11 AM in the morning. Hyperkalemia 5.2. -Oral Lasix 20 mg IV x 1. - Follow-up with CMP at 11 AM as noted. Chronic type 2 diabetes mellitus. -ACHS with moderate sliding scale coverage. -Will resume home medications when reconciled. Chronic hypertension, and chronic hypercholesteremia. -Resume home medications when reconciled. DVT prophylaxis with heparin Discharge Plan: Home Plan to discharge in: Greater than 2 days - Advance Directives Does patient have a Living Will: No Does patient have a Durable POA for Healthcare: No - Code Status/Comfort Care Code Status Assessed: Yes Code Status: Full Code Vital Signs/Physical Exam: Temp Pulse Resp BP Pulse Ox 98.7 F 107 H 27 H 116/57 L 96 12/28/24 08:00 12/28/24 12:02 12/28/24 08:00 12/28/24 12:02 12/28/24 08:00 Laboratory Data at Discharge: WBC 7.70 thou/uL (4.3-10.9) 12/28/24 04:47 Hgb 12.2 g/dL (13.6-17.9) L 12/28/24 04:47 Hct 36.0 % (39.6-49.0) L 12/28/24 04:47 Plt Count 446 thou/uL (152-406) H 12/28/24 04:47 PT 15.7 SECONDS (10-13.0) H 12/25/24 21:05 INR 1.40 12/25/24 21:05 APTT 33.3 SECONDS (27.2-37.4) 12/25/24 21:05 Sodium 141 mEq/L (136-145) 12/28/24 04:47 Potassium 4.2 mEq/L (3.5-5.1) 12/28/24 04:47 BUN 20 mg/dL (7-18) H 12/28/24 04:47 Creatinine 1.56 mg/dL (0.70-1.30) H 12/28/24 04:47 Glucose 96 mg/dL (74-106) 12/28/24 04:47 Uric Acid Cancelled 12/26/24 Unknown Total Bilirubin 0.7 mg/dL (0.2-1.0) 12/26/24 10:47 AST 30 U/L (15-37) 12/26/24 10:47 ALT 28 U/L (16-61) 12/26/24 10:47 Alkaline Phosphatase 35 U/L (45-117) L 12/26/24 10:47 Home Medications: Rosuvastatin Calcium 40 mg PO BEDTIME 01/19/24 glipiZIDE [Glipizide ER] 2.5 mg PO BID 01/19/24 Metoprolol Succinate [Toprol Xl*] 25 mg PO [id number] #60 tab 01/25/24 Fenofibrate Nanocrystallized [Fenofibrate] 145 mg PO DAILY 12/26/24 Cephalexin 500 mg PO BID 10 Days #20 cap 12/28/24 New Medications: Cephalexin 500 mg PO BID 10 Days #20 cap Followup: Elise Terrazas MD [Primary Care Provider] - 1-2 Weeks
[2024-12-28 13:38] VITALS: TEMP 99.9
--- NOTE | 2024-12-28 14:21 | P.PN ---
Date of Service: 12/28/24 Vital Signs Temp Pulse Resp BP Pulse Ox 99.9 F 107 H 22 H 116/57 L 94 12/28/24 12:00 12/28/24 12:02 12/28/24 12:00 12/28/24 12:02 12/28/24 12:00 Microbiology Results 12/25/24 21:05 Blood - Blood Aerobic Blood Culture - Preliminary No growth in 24 hours. 12/25/24 21:05 Blood - Blood Anaerobic Blood Culture - Preliminary No growth in 24 hours. 12/25/24 20:50 Blood - Blood Aerobic Blood Culture - Preliminary No growth in 24 hours. 12/25/24 20:50 Blood - Blood Anaerobic Blood Culture - Preliminary No growth in 24 hours. Assessment/ Plan: Nephrology No dyspnea No chest pain No acute events overnight Persistent knee pain Reports urinary symptoms with hesitancy. Nocturia X3. Reports Aleve/ Motrin 3-4 per day for knee pain. Vitals, medications, blood work and imaging reviewed in the chart NAD. MMM. NCAT. Normal Respiratory Effort. S1S2. ND Abd. No C/C. LE Edema 1+. No rash. AAO. Normal speech. Glez medium. A/P Patient is a 64-year-old male admitted to inpatient with diagnosis of bilateral lower extremities cellulitis, with acute kidney injury. Stage III KATARZYNA in the setting of hypovolemia and NSAIDs CKD II/III with Proteinuria -No NSAIDs -Discontinue IVF Acute Metabolic Acidosis -Oral Bicarb X1 HTN with CKD -Restart Metoprolol Peripheral Edema -Discontinue IVF DM II with CKD -RISS Anemia in chronic illness -Monitor H&H BPH with LUTS -Continue Glez RLE Wound BL LE Cellulitis/ Stasis Dermatitis -Continue Abx Hospitalist note reviewed Case reviewed with Dr. Casas
== END 2024-12-28 14:13 | disposition home or self-care (01) | DRG 683 ==
LOC: ER 19:13 → 2ND 12-26 02:08
PROVIDERS: ADMIT Family Medicine; ATTEND Family Medicine
PROC: 0T9B70Z Drainage of Bladder with Drainage Device, Via Natural or Artificial Opening (ICD-10-PCS; principal; 2024-12-28)
DX: N17.9 Acute kidney failure, unspecified (principal); E87.21 Acute metabolic acidosis; L03.115 Cellulitis of right lower limb; L03.116 Cellulitis of left lower limb; E87.5 Hyperkalemia; E87.6 Hypokalemia; E78.00 Pure hypercholesterolemia, unspecified; I87.2 Venous insufficiency (chronic) (peripheral); N40.1 Benign prostatic hyperplasia with lower urinary tract symptoms; I12.9 Hypertensive chronic kidney disease with stage 1 through stage 4 chronic kidney disease, or unspecified chronic kidney disease; N18.30 Chronic kidney disease, stage 3 unspecified; E11.22 Type 2 diabetes mellitus with diabetic chronic kidney disease; D63.1 Anemia in chronic kidney disease; Z79.84 Long term (current) use of oral hypoglycemic drugs; Z79.899 Other long term (current) drug therapy; Z87.891 Personal history of nicotine dependence
CPT/HCPCS: 36415; 71045; 74176; 76377; 80048; 80053; 81001; 82550; 82947; 83605; 83880; 84145; 84484; 84550; 85025; 85610; 85730; 86140; 87040; 93005; 93925; 93970; 96361; 96365; 96366; 99285; J0690; J0692; J1644; J1938; J7030; J7042

== ENCOUNTER 2025-01-07 07:08 | Inpatient (IN) | payer SELFPAY ==
[2025-01-07] MEDS ORDERED: D50W 25 GM/50 ML SYRINGE IV ONE ×2 (07:31→13:42)
[2025-01-07 07:54] LABS: Absolute Lymphocytes (CBC) 1.0 K/uL (0.7-4.9); Hematocrit 36.3 % (39.6-49.0); Hemoglobin 12.4 g/dL (13.6-17.9); MCH 30.9 pg (27.0-35.0); MCHC 34.1 g/dL (32.0-36.0); MCV 90.5 fL (80-100); MPV 7.8 fL (7.6-11.3); Nucleated RBC Absolute Count 0.0 (0-0); Nucleated Red Blood Cells % 0.0 % (0-0); RBC Red Blood Cell Count 4.01 M/uL (4.33-5.43); White Blood Count 7.30 thou/uL (4.3-10.9)
[2025-01-07 08:12] LABS: Anion Gap 16.5 mEq/L (5.0-15.0); BUN Blood Urea Nitrogen 28.0 mg/dL (7-18); Glucose Level 125.0 mg/dL (74-106); Magnesium 1.8 mg/dL (1.6-2.4); Potassium 4.5 mEq/L (3.5-5.1)
[2025-01-07] MEDS ORDERED: ONDANSETRON 4 MG/2 ML VIAL ONE ×2 (08:25→17:20)
--- NOTE | 2025-01-07 08:57 | RAD REPORT ---
EXAMINATION: ONE VIEW CHEST XR CLINICAL INDICATION: Male, 64 years old.,tachycardia, hypoglycemi TECHNIQUE: Frontal chest projection is submitted. Examination is limited by patient positioning and t echnique. COMPARISON: 12/25/2024. FINDINGS: The lungs are well inflated and clear. No pneumothorax or sizable effusion. The heart is normal in s ize. Mediastinal contours are unremarkable. IMPRESSION: No acute intrathoracic abnormalities.
--- NOTE | 2025-01-07 09:44 | EDPHYS ---
Physician Documentation [facility] Name: Philip Fay Age: 64 yrs Sex: Male : 1960 Arrival Date: 01/07/2025 Time: 07:08 Bed 6 Private MD: ED Physician Scout Becerril HPI: 01/07 11:57 This 64 yrs old Male presents to ER via EMS with complaints of Low Blood Sugar.ms3 11:57 64-year-old male with past medical history of BPH, diabetes, hypercholesterolemia, ms3 hypertension presents to the emergency department via [facility] for hypoglycemia. EMS states on their arrival patient was unresponsive and glucometer only read low. EMS administered D10 with improvement of patient's mental status. Patient is without pain, shortness of breath, nausea, vomiting.. Historical: - Allergies: 07:05 No Known Allergies; db - Home Meds: 12:09 fenofibrate 145 MG oral tablet 1 cap daily [Active]; losartan potassium (bulk) 100 MG 1 db TABLET daily [Active]; rosuvastatin 40 mg oral tablet 1 tab nightly [Active]; cephalexin 500 mg Oral capsule 1 cap 2 times per day [Active]; metoprolol succinate 25 mg oral Tablet, Extended Release 24 hr 1 tab daily [Active]; naproxen 500 mg Oral tablet 1 tab 2 times per day [Active]; glipizide 2.5 mg Oral tablet 1 tab 2 times per day [Active]; omeprazole 20 mg Oral capsule,delayed release (e.c.) daily [Active]; - PMHx: 07:05 BPH; diabetes mellitus; Hypercholesterolemia; Hypertensive disorder; db - PSHx: 07:05 back; db - Immunization history:: Adult Immunizations unknown. - Infectious Disease History:: Denies. - Social history:: Smoking status: Patient denies any tobacco usage or history of. ROS: 11:57 Constitutional: Negative for fever, and chills. Cardiovascular: Negative for chest ms3 pain, and palpitations. Respiratory: Negative for shortness of breath, cough, wheezing, and pleuritic chest pain, Abdomen/GI: Negative for abdominal pain, nausea, vomiting, diarrhea, and constipation, MS/Extremity: Negative for injury and deformity, :57 Skin: Positive for ulcer of right medial malleolus, ms3 Exam: 11:57 Constitutional: This is a well developed, well nourished patient who is awake, alert, ms3 and in no acute distress. Cardiovascular: Regular rate and rhythm with a normal S1 and S2. No gallops, murmurs, or rubs. Normal PMI, no JVD. No pulse deficits. Respiratory: Lungs have equal breath sounds bilaterally, clear to auscultation and percussion. No rales, rhonchi or wheezes noted. No increased work of breathing, no retractions or nasal flaring. Abdomen/GI: Soft, non-tender, with normal bowel sounds. No distension or tympany. No guarding or rebound. No evidence of tenderness throughout. 11:57 Skin: Ulcer right medial malleolus with surrounding erythema. 11:57 ECG was reviewed by the Attending Physician. ms3 Vital Signs: 07:04 BP 135 / 98; Pulse 108; Resp 20; Temp 97.7(O); Pulse Ox 95% ; db 07:30 BP 104 / 62; Pulse 108; Resp 24; Pulse Ox 98% on R/A; db 07:53 Temp 97.6(O); Weight 95 kg (M); db 08:00 BP 100 / 67; Pulse 107; Resp 24; Pulse Ox 95% ; db 08:50 BP 110 / 82; Pulse 112; Resp 24; Pulse Ox 94% ; db 10:08 BP 236 / 207; Pulse 111; db 10:48 BP 151 / 122; Pulse 93; Resp 18; db 11:30 BP 109 / 62; Pulse 96; Resp 24; Pulse Ox 94% on 2 lpm NC; db 12:00 BP 112 / 86; Pulse 98; Resp 24; Pulse Ox 99% ; db 13:45 BP 114 / 58; Pulse 96; Resp 18; Pulse Ox 96% on 2 lpm NC; db 14:30 BP 117 / 66; Pulse 95; Resp 18; Pulse Ox 96% on 2 lpm NC; db MDM: 07:13 Medical Screening Exam initiated ms3 11:57 Differential diagnosis: Renal failure vs hypoglycemia vs Electrolyte abnormality. Data ms3 reviewed: vital signs, nurses notes, lab test result(s), EKG, radiologic studies, and as a result, I will admit patient. Consideration of Admission/Observation Patient was admitted/placed on observation. Management of patient was discussed with the following: Hospitalist: Dr Carvalho. I considered the following discharge prescriptions or medication management in the emergency department Medications were administered in the Emergency Department. See MAR. Independent interpretation of the following test(s) in the Emergency Department X-Ray: My interpretation is CXR image reviewed by me does not reveal pna. Counseling: I had a detailed discussion with the patient and/or guardian regarding the historical points, exam findings, and any diagnostic results supporting the discharge/admit diagnosis, lab results, radiology results, the need for further work-up and treatment in the hospital. ED course: Patient with right ulcer on the medial malleolus. Heart rate greater than 90, respiratory rate greater than 20. Patient with elevation of creatinine. Patient meets severe sepsis criteria at this time. Blood cultures were obtained, vancomycin antibiotic ordered.. 01/07 07:21 Order name: Basic Metabolic Panel; Complete Time: 08:24 ms3 01/07 07:21 Order name: CBC with Diff; Complete Time: 08:24 ms3 01/07 07:21 Order name: Magnesium; Complete Time: 08:24 ms3 01/07 07:27 Order name: Glucose, Ancillary Testing; Complete Time: 07:55 EDMS 01/07 08:42 Order name: Glucose, Ancillary Testing; Complete Time: 09:01 EDMS 01/07 09:45 Order name: Blood Culture Adult (2) ms3 01/07 09:45 Order name: CMP; Complete Time: 11:55 ms3 01/07 09:45 Order name: Lactate w/ 2H reflex if indic.; Complete Time: 11:55 ms3 01/07 09:45 Order name: Protime (+inr) ms3 01/07 09:45 Order name: Ptt, Activated ms3 01/07 09:55 Order name: Glucose, Ancillary Testing; Complete Time: 11:55 EDMS 01/07 11:37 Order name: Ghost Lactate-NO COLLECT Timer EDMS 01/07 12:49 Order name: CBC with Automated Diff EDMS 01/07 12:49 Order name: CBC with Automated Diff EDMS 01/07 12:49 Order name: Comprehensive Metabolic Panel EDMS 01/07 12:49 Order name: Comprehensive Metabolic Panel EDMS 01/07 12:49 Order name: Magnesium EDMS 01/07 12:49 Order name: Magnesium EDMS 01/07 12:50 Order name: Phosphorus EDMS 01/07 12:50 Order name: Phosphorus EDMS 01/07 13:54 Order name: Glucose, Ancillary Testing EDMS 01/07 14:29 Order name: Lactate Sepsis 2 HR Follow-up EDMS 01/07 14:43 Order name: Glucose, Ancillary Testing EDMS 01/07 16:18 Order name: Glucose, Ancillary Testing EDMS 01/07 17:05 Order name: Glucose, Ancillary Testing EDMS 01/07 17:56 Order name: UA Rfx Constantine Cult if indicated EDMS 01/07 17:57 Order name: Glucose, Ancillary Testing EDMS 01/07 20:37 Order name: Glucose, Ancillary Testing EDMS 01/07 07:21 Order name: XRAY Chest (1 view); Complete Time: 09:01 ms3 01/07 12:51 Order name: Abdomen EDMS 01/07 12:49 Order name: CONS Physician Consult EDMS 01/07 07:21 Order name: Cardiac monitoring; Complete Time: 07:40 ms3 01/07 07:21 Order name: EKG - Nurse/Tech; Complete Time: 07:55 ms3 01/07 07:21 Order name: IV Saline Lock; Complete Time: 07:40 ms3 01/07 07:21 Order name: Labs collected and sent; Complete Time: 07:40 ms3 01/07 07:21 Order name: O2 Per Protocol; Complete Time: 07:40 ms3 01/07 07:21 Order name: O2 Sat Monitoring; Complete Time: 07:40 ms3 01/07 07:22 Order name: PO challenge; Complete Time: 09:03 ms3 01/07 08:24 Order name: Glucose Level; Complete Time: 08:50 ms3 01/07 09:45 Order name: IV Saline Lock - Large Bore; Complete Time: 10:26 ms3 01/07 09:45 Order name: Vital Signs; Complete Time: 09:52 ms3 01/07 10:20 Order name: Labs - recollect needed: recollect green top; Complete Time: 10:57 bd EC:57 Rate is 108 beats/min. Rhythm is regular. QRS [place] is Normal. [place] interval is normal. ms3 QRS interval is normal. Clinical impression: NSR w/ Non-specific ST/T Changes. Interpreted by me. Reviewed by me. Administered Medications: 07:31 Drug: D50W IVP 50 ml IVP once; (1 amp) Route: IVP; Site: left antecubital; db 08:25 Drug: Ondansetron IVP 4 mg IVP once; over 2 minutes Route: IVP; Site: right antecubital;db 10:20 Drug: vancoMYCIN IVPB 1 grams IVPB once over 2 hrs Route: IVPB; Infused Over: 2 hrs; db Site: right antecubital; 21:02 Follow up: Response: No adverse reaction; IV Status: Completed infusion; IV Intake: al5 250ml 10:20 Drug: NS 0.9% IV 500 ml 500 ml IV at 1 bolus once; to be given as a bolus over 30 db minutes Volume: 500 ml; Route: IV; Rate: 1 bolus; Site: right antecubital; 21:02 Follow up: Response: No adverse reaction; IV Status: Completed infusion; IV Intake: al5 500ml 10:20 Drug: Labetalol IV 10 mg IV at calculated rate once Route: IV; Rate: calculated rate; db Site: right antecubital; 21:03 Follow up: Response: No adverse reaction; IV Status: Completed infusion; IV Intake: 2ml al5 13:42 Drug: D50W IVP 50 ml IVP once; (1 amp) Route: IVP; Site: right antecubital; db 20:59 Follow up: Response: No adverse reaction; Blood sugar is elevated al5 Point of Care Testing: Blood Glucose: 08:24 Blood Glucose: 127 mg/dL; db 09:43 Blood Glucose: 91 mg/dL; db Ranges: Critical Glucose Levels:Adult <50 mg/dl or >400 mg/dl <40 mg/dl or >180 mg/dl Disposition Summary: 01/07/25 09:44 Hospitalization Ordered Notes: Hospitalization Status: Inpatient Admission ms3 Provider: Mihai Carvalho ms3 Condition: Stable ms3 Problem: new ms3 Symptoms: are unchanged ms3 Bed/Room Type: Standard ms3 Location: Intensive Care Unit(01/07/25 17:58) bd Room Assignment: 5-(01/07/25 17:58) bd Diagnosis - Hypoglycemia, unspecified ms3 - right medial malleolus ulcer ms3 - Severe sepsis without septic shock ms3 Forms: - Medication Reconciliation Form ms3 - SBAR form ms3 - Leadership Thank You Letter ms3 Critical care time excluding procedures: 12:06 Critical care time: Bedside Care: 35 minutes, Consultation: 5 minutes. Total time: 40 ms3 minutes Signatures: Dispatcher [employer] EDMS Donna Vegas bd Shelby Arrieta, RN WANDA ss Scout Becerril, DO ms3 Gerri Rand, WANDA RN db Brandi Merrill RN al5 Corrections: (The following items were deleted from the chart) 09:45 09:45 BLOOD CULTURE*+BA.LAB.BRZ ordered. EDMS EDMS 09:45 09:45 COMPREHENSIVE METABOLIC PANEL+C.LAB.BRZ ordered. EDMS EDMS 09:45 09:45 LACTATE+C.LAB.BRZ ordered. EDMS EDMS 09:45 09:45 PROTIME (+INR)+COAG.LAB.BRZ ordered. EDMS EDMS 09:45 09:45 PTT, ACTIVATED+COAG.LAB.BRZ ordered. EDMS EDMS 12:02 11:57 Constitutional: Negative for fever, and chills. Cardiovascular: Negative for ms3 chest pain, and palpitations. Respiratory: Negative for shortness of breath, cough, wheezing, and pleuritic chest pain, Abdomen/GI: Negative for abdominal pain, nausea, vomiting, diarrhea, and constipation, MS/Extremity: Negative for injury and deformity, Skin: Negative for injury, rash, and discoloration, ms3 13:10 09:44 Telemetry/MedSurg (Inpatient) ms3 ss 13:10 09:44 ms3 ss 17:58 13:10 [facility] ER HOLD ss bd 17:58 13:10 ERHOLD- ss bd
--- NOTE | 2025-01-07 09:44 | ER ---
Nurse's Notes [facility] Name: Philip Fay Age: 64 yrs Sex: Male : 1960 Arrival Date: 01/07/2025 Time: 07:08 Bed 6 Private MD: Diagnosis: Hypoglycemia, unspecified;right medial malleolus ulcer;Severe sepsis without septic shock Presentation: 01/07 07:04 Chief complaint: EMS states: COMING FROM HOME FOUND UNRESPONSIVE AND UNCONSCIOUS BY db FAMILY. BGL READING INITIAL LOW. GIVEN GLUCAGON ON SEEN AND THEN D10 IN AMBULANCE. GLUCOSE 106. BGL UPON ARRIVAL TO ER 76. RELEASED YESTERDAY FROM HOSPITAL FOR CELLULITIS TO RIGHT FOOT INFECTION. Coronavirus screen: Client denies travel out of the [place] in the last 14 days. At this time, the client does not indicate any symptoms associated with coronavirus-19. Ebola Screen: Patient negative for fever greater than or equal to 101.5 degrees Fahrenheit, and additional compatible Ebola Virus Disease symptoms Patient denies exposure to infectious person. Patient denies travel to an Ebola-affected area in the 21 days before illness onset. No symptoms or risks identified at this time. Initial Sepsis Screen: Does the patient meet any 2 criteria? No. Patient's initial sepsis screen is negative. Does the patient have a suspected source of infection? No. Patient's initial sepsis screen is negative. Risk Assessment: Do you want to hurt yourself or someone else? Patient reports no desire to harm self or others. Onset of symptoms was January 07, 2025. Care prior to arrival: IV initiated. 22 GA, in the left antecubital area, Glucose check: 106. 07:04 Method Of Arrival: EMS: [facility] db 07:04 Acuity: CHERELLE 2 db 07:04 Care prior to arrival: Medication(s) given: Glucagon, D10. db Triage Assessment: 07:05 General: Appears in no apparent distress. comfortable, Behavior is calm, cooperative. db Pain: Denies pain. Neuro: Level of Consciousness is awake, alert, obeys commands, Oriented to person, place, time, situation. Respiratory: Airway is patent Respiratory effort is even, unlabored, Respiratory pattern is regular, symmetrical. Historical: - Allergies: 07:05 No Known Allergies; db - Home Meds: 12:09 fenofibrate 145 MG oral tablet 1 cap daily [Active]; losartan potassium (bulk) 100 MG 1 db TABLET daily [Active]; rosuvastatin 40 mg oral tablet 1 tab nightly [Active]; cephalexin 500 mg Oral capsule 1 cap 2 times per day [Active]; metoprolol succinate 25 mg oral Tablet, Extended Release 24 hr 1 tab daily [Active]; naproxen 500 mg Oral tablet 1 tab 2 times per day [Active]; glipizide 2.5 mg Oral tablet 1 tab 2 times per day [Active]; omeprazole 20 mg Oral capsule,delayed release (e.c.) daily [Active]; - PMHx: 07:05 BPH; diabetes mellitus; Hypercholesterolemia; Hypertensive disorder; db - PSHx: 07:05 back; db - Immunization history:: Adult Immunizations unknown. - Infectious Disease History:: Denies. - Social history:: Smoking status: Patient denies any tobacco usage or history of. Screenin:42 [facility] ED Fall Risk Assessment (Adult) History of falling in the last 3 months, db including since admission No falls in past 3 months (0 pts) Confusion or Disorientation Yes (5 pts) Intoxicated or Sedated No (0 pts) Impaired Gait Yes (1 pt) Mobility Assist Device Used Yes (1 pt) Altered Elimination No (0 pt) Score/Fall Risk Level 3 or more points = High Risk Oriented to surroundings, Maintained a safe environment. [facility] ED Fall Risk Assessment (Adult) Score/Fall Risk Level 3 or more points = High Risk Hourly rounding (assess needs \T\ fall precautionary measures) done, Utilized family, sitter, or virtual school counselor as indicated. Abuse screen: Denies threats or abuse. Denies injuries from another. Nutritional screening: No deficits noted. Tuberculosis screening: No symptoms or risk factors identified. Assessment: 07:21 Reassessment: SEE TRIAGE FOR INTIIAL ASSESSMENT. db 07:54 Reassessment: FAMILY IS AT BEDSIDE. Neuro: Level of Consciousness is awake, alert, db obeys commands. 08:25 Reassessment: Patient appears in no apparent distress at this time. NOTIFIED DR. DEVLIN db PT VOMITING AFTER GIVEN JUICE FOR PO CHALLENGE. SEE MAR FOR MED ADMINISTRATION. GI: Pt is actively vomiting bile, Reports nausea, vomiting. 08:25 General: Appears in no apparent distress. comfortable, Behavior is calm, cooperative. db Respiratory: Airway is patent Respiratory effort is even, unlabored, Respiratory pattern is regular, symmetrical. 10:20 Reassessment: PATIENT ASSISTED ONTO A BEDPAN. db 10:35 Reassessment: PATIENT CLEANED AND CHANGED INTO A GOWN. CHANGED INTO A GOWN. db 12:08 Reassessment: Patient appears in no apparent distress at this time. Patient and/or db family updated on plan of care and expected duration. Pain level reassessed. 12:16 Reassessment: DR. CARVALHO HOSPITALIST, IS AT PATIENT BEDSIDE. db 13:49 Reassessment: Patient appears in no apparent distress at this time. Patient and/or db family updated on plan of care and expected duration. Pain level reassessed. PATIENT GLUCOSE 39 GIVEN D50. STARTED ON D5 DRIP. Vital Signs: 07:04 BP 135 / 98; Pulse 108; Resp 20; Temp 97.7(O); Pulse Ox 95% ; db 07:30 BP 104 / 62; Pulse 108; Resp 24; Pulse Ox 98% on R/A; db 07:53 Temp 97.6(O); Weight 95 kg (M); db 08:00 BP 100 / 67; Pulse 107; Resp 24; Pulse Ox 95% ; db 08:50 BP 110 / 82; Pulse 112; Resp 24; Pulse Ox 94% ; db 10:08 BP 236 / 207; Pulse 111; db 10:48 BP 151 / 122; Pulse 93; Resp 18; db 11:30 BP 109 / 62; Pulse 96; Resp 24; Pulse Ox 94% on 2 lpm NC; db 12:00 BP 112 / 86; Pulse 98; Resp 24; Pulse Ox 99% ; db 13:45 BP 114 / 58; Pulse 96; Resp 18; Pulse Ox 96% on 2 lpm NC; db 14:30 BP 117 / 66; Pulse 95; Resp 18; Pulse Ox 96% on 2 lpm NC; db ED Course: 07:05 Arm band placed on right wrist. Patient placed in an exam room. db 07:12 Patient arrived in ED. iw 07:13 Scout Devlin DO is Attending Physician. ms3 07:15 Maintain EMS IV. Dressing intact. Good blood return noted. Site clean \T\ dry. Gauge \T\ db site: 22 G LAC. Flushed with 10 mL NS. 07:16 Gerri Rand, RN is Primary Nurse. db 07:19 Triage completed. db 07:22 Initial lab(s) drawn, by me, sent to lab. Inserted saline lock: 20 gauge in right db antecubital area, using aseptic technique. Blood collected. Flushed with 10 mL NS. 07:50 XRAY Chest (1 view) In Process Unspecified. EDMS 07:55 EKG done. db 08:33 Patient has correct armband on for positive identification. Bed in low position. Call db light in reach. Side rails up X 1. Pulse ox on. NIBP on. 09:43 Mihai Carvalho MD is Hospitalizing Provider. ms3 13:15 Abdomen In Process Unspecified. EDMS 17:37 Glez cath inserted, using sterile technique, 12 Fr., by ED staff, balloon inflated, to db gravity drainage, urine specimen collected. 20:03 Noelle Persaud, WANDA is Primary Nurse. kd3 20:54 No provider procedures requiring assistance completed. Patient admitted, IV remains in al5 place. Administered Medications: 07:31 Drug: D50W IVP 50 ml IVP once; (1 amp) Route: IVP; Site: left antecubital; db 08:25 Drug: Ondansetron IVP 4 mg IVP once; over 2 minutes Route: IVP; Site: right antecubital;db 10:20 Drug: vancoMYCIN IVPB 1 grams IVPB once over 2 hrs Route: IVPB; Infused Over: 2 hrs; db Site: right antecubital; 21:02 Follow up: Response: No adverse reaction; IV Status: Completed infusion; IV Intake: al5 250ml 10:20 Drug: NS 0.9% IV 500 ml 500 ml IV at 1 bolus once; to be given as a bolus over 30 db minutes Volume: 500 ml; Route: IV; Rate: 1 bolus; Site: right antecubital; 21:02 Follow up: Response: No adverse reaction; IV Status: Completed infusion; IV Intake: al5 500ml 10:20 Drug: Labetalol IV 10 mg IV at calculated rate once Route: IV; Rate: calculated rate; db Site: right antecubital; 21:03 Follow up: Response: No adverse reaction; IV Status: Completed infusion; IV Intake: 2ml al5 13:42 Drug: D50W IVP 50 ml IVP once; (1 amp) Route: IVP; Site: right antecubital; db 20:59 Follow up: Response: No adverse reaction; Blood sugar is elevated al5 Medication: 08:30 VIS not applicable for this client. db Point of Care Testing: Blood Glucose: 08:24 Blood Glucose: 127 mg/dL; db 09:43 Blood Glucose: 91 mg/dL; db Ranges: Intake: 21:02 IV: 500ml; Total: 500ml. al5 21:02 IV: 250ml; Total: 750ml. al5 21:03 IV: 2ml; Total: 752ml. al5 Outcome: 09:44 Decision to Hospitalize by Provider. ms3 20:55 Admitted to ICU accompanied by nurse, family with patient, via stretcher, room ICU 8, al5 with oxygen, on monitor, with chart, 20:55 Condition: stable 20:55 Instructed on the need for admit, 20:59 Patient left the ED. al5 Signatures: Dispatcher [employer] EDMS Birgit Oh RN Scout Velez DO DO ms3 Noelle Persaud RN RN kd3 Gerri Rand RN RN db Brandi Merrill RN RN al5 Corrections: (The following items were deleted from the chart) 07:20 07:04 Chief complaint: EMS states: COMING FROM HOME FOUND UNRESPONSIVE AND UNCONSCIOUS db BY FAMILY. BGL READING INITIAL LOW. GIVEN GLUCAGON ON SEEN AND THEN D10 IN AMBULANCE. GLUCOSE 106. BGL UPON ARRIVAL TO ER 76 db 21:03 20:59 Response: No adverse reaction al5 al5
[2025-01-07] MEDS ORDERED: VANCOMYCIN 1 GM/VIAL ONE (10:13)
[2025-01-07] MEDS ORDERED: LABETALOL 20 MG/4ML SYRINGE IV ONE (10:14)
[2025-01-07] MEDS ORDERED: NA CHLORIDE 0.9% 1,000 ML ONE (10:14)
[2025-01-07 11:21] LABS: ALT/SGPT 24.0 U/L (16-61); AST/SGOT 58.0 U/L (15-37); Albumin 2.2 g/dL (3.4-5.0); Albumin/Globulin Ratio 0.5 (1.1-1.8); Alkaline Phosphatase 36.0 U/L (45-117); Anion Gap 14.4 mEq/L (5.0-15.0); BUN Blood Urea Nitrogen 28.0 mg/dL (7-18); Globulin 4.3 g/dL (2.3-3.5); Glucose Level 64.0 mg/dL (74-106); Potassium 4.4 mEq/L (3.5-5.1)
--- NOTE | 2025-01-07 12:55 | P.HP ---
Certification for Inpatient Patient admitted to: Inpatient With expected LOS: >2 Midnights Practitioner: I am a practitioner with admitting privileges, knowledge of patient current condition, hospital course, and medical plan of care. Services: Services provided to patient in accordance with Admission requirements found in Title 42 Section 412.3 of the Code of Federal Regulations Patient History Date of Service: 01/07/25 History of Present Illness: 64yo M, recently discharged ~1 week after hospitalized for R heel ulcer/infection and KATARZYNA. Loyd to ED today via EMS after found unresponsive in bed this morning. Family and patient state he has been in usual state of health until this morning. On further questioning, they do state he was having 4-5 loose BM's at home since discharge until last night when he took some imodium. He has also had a decreased appetite, but family state he has been drinking plenty of water. He was seen yesterday in wound clinic and there was discussion regarding topical wound care. In the ED, he improved with D50w. His glucose was better on arrival to ED. He reported some mild RLQ discomfort - feeling a cord under his skin since last hospitalization. He states he has not had any changes in his stool/urinary habits. Difficult to get a clear answer from him at this time. His lactate was elevated at 2.1. Sepsis workup and antibiotics initiated in ED, with possible infectious source being his heel. Although he and family state it's not any significantly different than it has been. He does have some erythema up his leg. no purulent drainage. He denies taking any NSAIDs since discharge. Allergies No Known Allergies Allergy (Verified 12/26/24 04:08) Home Medications: Rosuvastatin Calcium 40 mg PO BEDTIME 01/19/24 glipiZIDE [Glipizide ER] 2.5 mg PO BID 01/19/24 Metoprolol Succinate [Toprol Xl*] 25 mg PO [id number] #60 tab 01/25/24 Fenofibrate Nanocrystallized [Fenofibrate] 145 mg PO DAILY 12/26/24 Cephalexin 500 mg PO BID 10 Days #20 cap 12/28/24 Losartan Potassium 100 mg PO DAILY 01/07/25 Naproxen 500 mg PO BID 01/07/25 Omeprazole 20 mg PO DAILY 01/07/25 - Past Medical/Surgical History Diabetic: Yes -: Type 2 diabetes mellitus. -: Back pain. -: ARTHRITIS -: Hypertension. -: Hypercholesteremia -: ARF episode evaluated by Dr. Miranda -: Back surgery - Family History Family History: Reviewed- Non-Contributory - Social History Smoking Status: Unknown if ever smoked Alcohol use: No CD- Drugs: No Caffeine use: Yes Place of Residence: Home Review of Systems 10-point ROS is otherwise unremarkable General: Weakness, Malaise Physical Examination - Studies Laboratory Data (last 24 hrs) 01/07/25 01/07/25 01/07/25 10:55 07:30 07:30 WBC 7.30 Hgb 12.4 L Hct 36.3 L Plt Count 593 H Sodium 134 L 135 L Potassium 4.4 4.5 BUN 28 H 28 H Creatinine 4.73 H 4.58 H Glucose 64 L 125 H Magnesium 1.8 Total Bilirubin 0.5 AST 58 H ALT 24 Alkaline Phosphatase 36 L Assessment and Plan - Advance Directives Does patient have a Living Will: No Does patient have a Durable POA for Healthcare: No Physician Review Additional Text: Problem List Hypoglycemia with h/o NIDDM2 Sepsis secondary to RLE cellulitis / heel wound KATARZYNA Diarrhea h/o HTN Hypoglycemia suspect secondary to decreased PO intake, Katarzyna, and oral meds lowering his glucose improved initially with d50 but downtrending again monitor in ICU for now D5 containing fluids for now Sepsis possible infected R heel wound family states similar appearance it has been SIRS may be secondary to KATARZYNA and hypoglycemic event empiric antibiotics for now, monitor closely. received abx in ER KATARZYNA unclear etiology hypovolemia from diarrhea and decrease PO vs obstruction/retention no imaging done in ER, will obtain CT abd/pelvis to further evaluate nephrology consulted Diarrhea 3-5 episodes per day at home since discharge. on antibiotics. 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
--- NOTE | 2025-01-07 13:27 | RAD REPORT ---
EXAMINATION: Abdomen Pelvis Wo Contrast CLINICAL INDICATION: Male, 64 years old.priyank, diarrhea, r/o obstruction TECHNIQUE: CT abdomen and pelvis was performed, without IV contrast, as per department protocol. Axia l, sagittal and coronal reconstructions were obtained. One or more of the following dose reduction techniques were used: Automated exposure control, adjustment of the mA and/or kV according to the pat ient size, and/or iterative reconstruction. Unless otherwise specified, incidental findings do not require dedicated imaging follow-up. [id number]. IV CONTRAST: Not administered. COMPARISON: 12/25/2024 FINDINGS: The lack of intravenous contrast limits the sensitivity of this exam for evaluation of solid visceral organs, vascular structures, and retroperitoneum. LOWER CHEST: No acute process identified. Trace pericardial effusion. Small hiatal hernia. UPPER GI: No significant abnormality. LIVER: Hepatic steatosis, but otherwise unremarkable. GALLBLADDER/BILE DUCTS: No biliary ductal dilatation.? PANCREAS: No mass, ductal dilation, or jannie-pancreatic fluid. SPLEEN: Unremarkable. ADRENALS: No adrenal masses. KIDNEYS AND URETERS: No hydronephrosis. Limited evaluation for renal lesions in the absence of IV con trast. No renal calculi. No ureteral calculi. ABDOMINAL AORTA AND OTHER VESSELS: Mild atherosclerotic changes. PERITONEUM: No abnormal free fluid. No free air. LYMPH NODES: No pathologic lymphadenopathy. ABDOMINAL WALL: Fat containing inguinal hernias. Fat-containing ventral hernia. SMALL BOWEL/COLON: Small bowel has normal course and caliber. No colonic wall thickening or pericolon ic inflammatory changes. Normal appendix. URINARY BLADDER: Underdistended but grossly unremarkable. REPRODUCTIVE ORGANS: No pathologic process. MUSCULOSKELETAL: Superior endplate deformity at L4 is similar. Grade 1 anterolisthesis of L4 and L5. ADDITIONAL FINDINGS: None. IMPRESSION: No acute findings within the abdomen or pelvis. No appendicitis. No hydronephrosis.
[2025-01-07] MEDS: D5 0.9 NS 1,000 ML IV SCH ×2 (13:40→22:51)
[2025-01-07] MEDS ORDERED: D5 0.9 NS 1,000 ML IV ONE (13:43)
[2025-01-07] MEDS: NA CHLORIDE 0.9% 500 ML IV ONE (17:15)
[2025-01-07] MEDS: ONDANSETRON 4 MG/2 ML VIAL IV PRN (17:20)
[2025-01-07] MEDS ORDERED: NA CHLORIDE 0.9% 500 ML ONE (17:20)
[2025-01-07 17:56] LABS: Sqamous Epithelial None Seen /HPF (None Seen); Urine Culture Reflex Order NOT NEEDED; Urine Microscopic Reflex YN ORDER UMIC
[2025-01-07] MEDS: VANCOMYCIN 750 MG in NA CHLORIDE 0.9% 150 ML IVPB ONE (18:15)
--- NOTE | 2025-01-07 21:43 | P.CNS ---
Date of Consult: 01/08/25 Reason for Consult: KATARZYNA/ CKD Requesting Physician: Mihai Carvalho Chief Complaint: AMS History of Present Illness: 64yo M, recently discharged ~1 week after hospitalized for R heel ulcer/infection and KATARZYNA. Loyd to ED today via EMS after found unresponsive in bed this morning. Family and patient state he has been in usual state of health until this morning. On further questioning, they do state he was having 4-5 loose BM's at home since discharge until last night when he took some imodium. He has also had a decreased appetite, but family state he has been drinking plenty of water. He was seen yesterday in wound clinic and there was discussion regarding topical wound care. In the ED, he improved with D50w. His glucose was better on arrival to ED. He reported some mild RLQ discomfort - feeling a cord under his skin since last hospitalization. He states he has not had any changes in his stool/urinary habits. Difficult to get a clear answer from him at this time. His lactate was elevated at 2.1. Sepsis workup and antibiotics initiated in ED, with possible infectious source being his heel. Although he and family state it's not any significantly different than it has been. He does have some erythem up his leg. no purulent drainage. He denies taking any NSAIDs since discharge. [id number] 11:57 This 64 yrs old Male presents to ER via EMS with complaints of Low Blood Sugar.ms3 11:57 64-year-old male with past medical history of BPH, diabetes, hypercholesterolemia, ms3 hypertension presents to the emergency department via [facility] for hypoglycemia. EMS states on their arrival patient was unresponsive and glucometer only read low. EMS administered D10 with improvement of patient's mental status. Patient is without pain, shortness of breath, nausea, vomiting.. No NSAIDs. Urinary issues unclear at this time. Recent poor oral intake complicated by diarrhea. Allergies No Known Allergies Allergy (Verified 12/26/24 04:08) Home medications list reviewed: Yes Home Medications: Rosuvastatin Calcium 40 mg PO BEDTIME 01/19/24 glipiZIDE [Glipizide ER] 2.5 mg PO BID 01/19/24 Metoprolol Succinate [Toprol Xl*] 25 mg PO [id number] #60 tab 01/25/24 Fenofibrate Nanocrystallized [Fenofibrate] 145 mg PO DAILY 12/26/24 Cephalexin 500 mg PO BID 10 Days #20 cap 12/28/24 Losartan Potassium 100 mg PO DAILY 01/07/25 Naproxen 500 mg PO BID 01/07/25 Omeprazole 20 mg PO DAILY 01/07/25 - Past Medical/Surgical History Diabetic: Yes -: Type 2 diabetes mellitus. -: Back pain. -: ARTHRITIS -: Hypertension. -: Hypercholesteremia -: ARF episode evaluated by Dr. Miranda -: Back surgery - Social History Alcohol use: No CD- Drugs: No Caffeine use: Yes Place of Residence: Home Review of Systems 10-point ROS is otherwise unremarkable General: Weakness, Malaise Musculoskeletal: Foot Pain Physical Examination Temp Pulse Resp BP Pulse Ox 97.8 F 106 H 19 97/52 L 19 L 01/07/25 16:00 01/07/25 20:00 01/07/25 20:00 01/07/25 20:00 01/07/25 20:00 General: Cooperative, Mild distress HEENT: Atraumatic Neck: Supple Respiratory: Clear to auscultation bilaterally, Normal air movement Cardiovascular: No edema, Regular rate/rhythm Gastrointestinal: Soft and benign, Non-distended Musculoskeletal: No clubbing, No contractures Integumentary: No rashes, No cyanosis Neurological: Normal speech Urinary: Glez catheter Laboratory Data (last 24 hrs) 01/07/25 01/07/25 01/07/25 10:55 07:30 07:30 WBC 7.30 Hgb 12.4 L Hct 36.3 L Plt Count 593 H Sodium 134 L 135 L Potassium 4.4 4.5 BUN 28 H 28 H Creatinine 4.73 H 4.58 H Glucose 64 L 125 H Magnesium 1.8 Total Bilirubin 0.5 AST 58 H ALT 24 Alkaline Phosphatase 36 L Imagings Data: EXAMINATION: Abdomen Pelvis Wo Contrast CLINICAL INDICATION: Male, 64 years old.katarzyna, diarrhea, r/o obstruction TECHNIQUE: CT abdomen and pelvis was performed, without IV contrast, as per department protocol. Axial, sagittal and coronal reconstructions were obtained. One or more of the following dose reduction techniques were used: Automated exposure control, adjustment of the mA and/or kV according to the patient size, and/or iterative reconstruction. Unless otherwise specified, incidental findings do not require dedicated imaging follow-up. [id number]. IV CONTRAST: Not administered. COMPARISON: 12/25/2024 FINDINGS: The lack of intravenous contrast limits the sensitivity of this exam for evaluation of solid visceral organs, vascular structures, and retroperitoneum. LOWER CHEST: No acute process identified. Trace pericardial effusion. Small hiatal hernia. UPPER GI: No significant abnormality. LIVER: Hepatic steatosis, but otherwise unremarkable. GALLBLADDER/BILE DUCTS: No biliary ductal dilatation.? PANCREAS: No mass, ductal dilation, or jannie-pancreatic fluid. SPLEEN: Unremarkable. ADRENALS: No adrenal masses. KIDNEYS AND URETERS: No hydronephrosis. Limited evaluation for renal lesions in the absence of IV contrast. No renal calculi. No ureteral calculi. ABDOMINAL AORTA AND OTHER VESSELS: Mild atherosclerotic changes. PERITONEUM: No abnormal free fluid. No free air. LYMPH NODES: No pathologic lymphadenopathy. ABDOMINAL WALL: Fat containing inguinal hernias. Fat-containing ventral hernia. SMALL BOWEL/COLON: Small bowel has normal course and caliber. No colonic wall thickening or pericolonic inflammatory changes. Normal appendix. URINARY BLADDER: Underdistended but grossly unremarkable. REPRODUCTIVE ORGANS: No pathologic process. MUSCULOSKELETAL: Superior endplate deformity at L4 is similar. Grade 1 anterolisthesis of L4 and L5. ADDITIONAL FINDINGS: None. IMPRESSION: No acute findings within the abdomen or pelvis. No appendicitis. No hydronephrosis. EXAMINATION: ONE VIEW CHEST XR CLINICAL INDICATION: Male, 64 years old.,tachycardia, hypoglycemi TECHNIQUE: Frontal chest projection is submitted. Examination is limited by patient positioning and technique. COMPARISON: 12/25/2024. FINDINGS: The lungs are well inflated and clear. No pneumothorax or sizable effusion. The heart is normal in size. Mediastinal contours are unremarkable. IMPRESSION: No acute intrathoracic abnormalities. Conclusions/Impression: Stage II KATARZYNA in the setting of hypovolemia and hypotension may be complicated by ATN CKD III with Proteinuria -No NSAIDs -Increase IVF to 100 ml/hr; Consider changing fluids to LR -Repeat UA in AM due to new hematuria Hyponatremia -Continue IVF with NS Metabolic Acidosis -Start oral bicarb HTN with CKD complicated by hypotension -Hold antihypertensives at this time -IVF bolus prn -Levophed prn -Continue IVF DM II with Peripheral Angiopathy & CKD -RISS Elevated AST -Monitor LFT Hypoalbuminemia -Consider Nepro Anemia in chronic illness -Monitor H&H Sepsis Right Foot DM Ulcer -Surgery following with plan for debridement today -Wound care as ordered -Follow up cx -Continue Abx; monitor vanc level Hospitalist and ER notes reviewed Case discussed with Dr. Carvalho Thank you kindly for the consultation Patient care 50min
[2025-01-07] MEDS: ALBUMIN HUMAN 25% 100 ML IV ONE (22:52)
[2025-01-07] MEDS: ACETAMINOPHEN 500 MG TAB PO PRN (23:13)
[2025-01-07] MEDS: NOREPINEPHRINE 4 MG in D5W 250 ML IV SCH (23:50)
[2025-01-08] MEDS: ALBUTEROL 2.5 MG/3 ML NEB SOL NEB PRN (01:45)
[2025-01-08] MEDS: IPRATROPIUM BROM 0.5MG/2.5ML NEB PRN (01:45)
[2025-01-08 02:44] LABS: Sqamous Epithelial <5 /HPF (None Seen); Urine Micro Reflex YN NO BILL MICROSCOPIC; Urine WBC Clump Rare /HPF (None Seen)
--- NOTE | 2025-01-08 05:52 | RAD REPORT ---
EXAM: XR Chest, 1 View CLINICAL HISTORY: shortness of breath TECHNIQUE: Frontal view of the chest. COMPARISON: XR Chest dated 01/07/2025 FINDINGS: Lungs: Unremarkable. No consolidation. Pleural space: Unremarkable. No pneumothorax. Heart: The cardiac silhouette is mildly enlarged, stable, in part accentuated by portable technique . Mediastinum: Unremarkable. Normal mediastinal contour. Bones/joints: Multilevel spondylosis. No acute fracture. IMPRESSION: No acute disease. Electronically signed by: Gary Welsh MD 01/08/2025 03:51 AM CDT Due to temporary technical issues with the PACS/Tello reporting system, reports are being betito d by the in-house radiologist without review as a courtesy to ensure prompt reporting the interpreting radiologist is fully responsible for the content of the report. Transcribed Date/Time: 01/08/2025 5:52 AM
--- NOTE | 2025-01-08 05:52 | RAD REPORT ---
PROCEDURE: CT Head Without Intravenous Contrast CLINICAL INDICATION: The patient is 64 years old and is Male; Altered mental status TECHNIQUE: Axial computed tomography images of the head/brain without intravenous contrast. Sagittal and coron al reformatted images were created and reviewed. This CT exam was performed using one or more of the following dose reduction techniques: automated exposure control, adjustment of the mA and/or kV according to patient size, and/or use of iterative reconstruction technique. COMPARISON: 01/18/2024 CT head FINDINGS: BRAIN: Cavum septum pellucidum incidentally noted. No extra-axial fluid collection. No intracranial hemorrhage. No abnormal mass effect. No appreciable cerebral edema. No transtentorial herniation. No focal mena-white matter differentiation abnormality. MIDLINE SHIFT: No midline shift. VENTRICLES: Unremarkable No ventriculomegaly. BONES/JOINTS: No fracture of the calvarium or visualized facial bones. SOFT TISSUES: Unremarkable SINUSES: No masses, bony erosion or evidence of acute sinusitis. MASTOID AIR CELLS: Hypopneumatization of the bilateral mastoid air cells with left mastoid air cell effusion redemonstrated. AUDITORY SYSTEM: Suspected left middle ear effusion, versus volume averaging artifact. IMPRESSION: 1. No acute intracranial abnormality. 2. Hypopneumatization of the bilateral mastoid air cells with left mastoid air cell effusion redemo nstrated. Suspected left middle ear effusion, versus volume averaging artifact. Recommend clinical correlation for evidence of left otomastoiditis. Electronically signed by: Palmer William MD 01/08/2025 05:27 AM CDT Due to temporary technical issues with the PACS/[employer] reporting system, reports are being betito d by the in-house radiologist without review as a courtesy to ensure prompt reporting the interpreting radiologist is fully responsible for the content of the report. Transcribed Date/Time: 01/08/2025 5:52 AM
[2025-01-08] MEDS ORDERED: IPRATROPIUM BROM 0.5MG/2.5ML NEB SCH (07:00)
[2025-01-08] MEDS ORDERED: ALBUTEROL 2.5 MG/3 ML NEB SOL NEB SCH (07:00)
[2025-01-08] MEDS: CEFTRIAXONE 1,000 MG in NA CHLORIDE 0.9% 50 ML IVPB SCH (08:17)
[2025-01-08] MEDS: NOREPINEPHRINE BITARTRATE/D5W 4 MG/250 ML BAG IV SCH (08:18)
[2025-01-08 09:03] LABS: Absolute Lymphocytes (CBC) 1.3 K/uL (0.7-4.9); Hematocrit 31.2 % (39.6-49.0); Hemoglobin 10.8 g/dL (13.6-17.9); MCH 31.0 pg (27.0-35.0); MCHC 34.5 g/dL (32.0-36.0); MCV 90.1 fL (80-100); MPV 7.7 fL (7.6-11.3); Nucleated RBC Absolute Count 0.0 (0-0); Nucleated Red Blood Cells % 0.1 % (0-0); RBC Red Blood Cell Count 3.47 M/uL (4.33-5.43); White Blood Count 7.60 thou/uL (4.3-10.9)
[2025-01-08 09:31] LABS: PT Prothrombin Time 17.1 SECONDS (10-13.0); PTT, Activated Partial Thromb 28.2 SECONDS (27.2-37.4); Protime INR 1.53
[2025-01-08 09:38] LABS: ALT/SGPT 22.0 U/L (16-61); AST/SGOT 38.0 U/L (15-37); Albumin 2.2 g/dL (3.4-5.0); Albumin/Globulin Ratio 0.6 (1.1-1.8); Alkaline Phosphatase 33.0 U/L (45-117); Anion Gap 12.2 mEq/L (5.0-15.0); BUN Blood Urea Nitrogen 24.0 mg/dL (7-18); Globulin 3.9 g/dL (2.3-3.5); Glucose Level 107.0 mg/dL (74-106); Magnesium 1.6 mg/dL (1.6-2.4); Potassium 4.2 mEq/L (3.5-5.1); Uric Acid 7.8 mg/dL (3.5-7.2)
[2025-01-08 10:38] LABS: Hepatitis B surface AG Interp. Nonreactive (Nonreactive)
[2025-01-08 10:39] LABS: Hepatitis B Surface Ab - Quant < 3.10 mIU/mL (<8.0)
[2025-01-08 10:40] LABS: HBsAG Nonreactive Report Report
--- NOTE | 2025-01-08 11:05 | P.PN ---
Date of Service: 01/08/25 Subjective: placed on levo this morning due to low BP confused overnight. family report he was having visual/auditory hallucinations 99.7 temp this morning, +tachycardic HR 100s Physical Exam: Gen: Awake, NAD, confusion CV: Sinus Tachycardia, no edema Pulm: Nonlabored respirations on RA, clear bilaterally Abdomen: Soft, nontender, nondistended Integumentary: RLE heel wound Glez placed 01/07 Problem List: Hypotension Sepsis secondary to RLE cellulitis / heel wound Acute encephalopathy KATARZYNA Hypoglycemia with h/o NIDDM2 Diarrhea Hx of Hypertension Hypotension started on levophed this morning due to low BP wean levo as tolerated. Monitor BP closely. pulm consult Sepsis secondary to RLE cellulitis / heel wound Acute encephalopathy possible infected R heel wound. Family states similar appearance it has been SIRS may be secondary to KATARZYNA and hypoglycemic event empiric Rocephin/Vanc (01/09-) for now Follow blood cultures 99.7 temp this morning. No leukocytosis. Surgical consult to eval wound Pt with increased confusion last night. CT head negative for acute findings but did note hypopneumatization of the bilateral mastoid air cells with left mastoid air cell effusion redemonstrated. Suspected left middle ear effusion, versus volume averaging artifact. Correlate for left otomastoiditis. KATARZYNA on CKD3 unclear etiology hypovolemia from diarrhea and decreased PO Monitor renal function, electrolytes CT negative for any acute findings. No obstruction Nephrology consulted Continue IV fluids CR improving Hypoglycemia with h/o NIDDM2 suspect secondary to decreased PO intake, Katarzyna, and oral meds lowering his glucose improved with d5w NS. continue IVF ranging 100-140s today Diarrhea 3-5 episodes per day at home since discharge. on antibiotics. deny any foul odor monitor for now no diarrhea since day before admission VTE: Ambulatory Code: Full Dispo: continue ICU level of care anticipate hospitalization ~4-5 days may need post acute facility
[2025-01-08] MEDS ORDERED: LIDOCAINE 1% MPF 5 ML VIAL ONE (11:12)
[2025-01-08] MEDS: SODIUM BICARB 325 MG TAB PO SCH (11:51)
[2025-01-08] MEDS ORDERED: LIDOCAINE HCL JELLY 2% 6 ML SYRINGE TOP ONE (11:57)
[2025-01-08] MEDS: COLLAGENASE 30 GM OINTMENT TOP SCH ×2 (12:28→12:33)
[2025-01-08] MEDS: MORPHINE 4 MG/ML SYR IV ONE (12:34)
--- NOTE | 2025-01-08 17:40 | CON ---
Date of Consultation: 01/08/2025 Diagnosis: Right foot diabetic ulcer with necrotic tissue. History Of Present Illness: This is a case of a male, who comes to us admitted with multiple medical problems including workup of sepsis, found to have an open wound on the right foot area and a surgic al consult was obtained for debridement. Allergies: NONE. Medications: Reviewed. Past Medical History: Diabetes, high cholesterol, hypertension. Social History: He does not smoke. He does not drink alcohol. Family History: Noncontributory. Review of Systems: No shortness of breath. No chest pain. No abdominal pain, although the patient has pain over the ul cer region and the erythema and swelling of the right leg. Physical Examination: General: The patient is awake and alert. HEENT: Pupils are equal and reactive. Anicteric. Neck: Supple. Chest: Clear. Heart: S1. S2. Abdomen: Soft and depressible. No guarding or rebound. No peritoneal signs. Right lower extremity , the patient has dorsalis pedis pulses present, although diminished bilaterally, chronic. Over the right leg, the patient has erythema present. No Homans signs. No calf tenderness. The patient has a necrotic wound over the right medial side, which is about 3 x 2 cm grade 4. Cellulitis is present too. Laboratory Data: Blood work shows WBC count of 7.3, hemoglobin of 12.4, potassium is 4.2, creatinine is 3.61. Assessment: This is a -[id number]-hmt patient with multiple diseases including a necrotic ulcer on the right foot area. The benefits, alternatives, and risks of excisional debridement fully explai kole, which include, but not limited to infection, bleeding, damage to adjacent structures, anesthesia complications, nonhealing wound, NV, and even . He understood, signed a consent. Procedure: Excisional debridement of a right foot stage IV diabetic ulcer. Under aseptic condition using lidocaine viscous for local anesthetic and also using injectable 1% lidocaine, we proceeded to prep and drape the right foot in the usual sterile fashion. Proceed with injection of the lidocaine followed by a sharp debridement with 11 blade. Necrotic tissue was removed. The area was irrigated. Hemostasis was obtained with pressure and then, the area was covered with sterile dressings. The p atient tolerated the procedure well. The patient will remain in the ICU. HM/MODL Voice ID: [id number] Report ID: [id number]
[2025-01-09] MEDS: MORPHINE 4 MG/ML SYR IV PRN (02:31)
[2025-01-09] MEDS: DIPHENHYDRAMINE 50 MG/ML VIAL IV ONE (05:09)
[2025-01-09 05:33] LABS: Hematocrit 29.7 % (39.6-49.0); Hemoglobin 10.0 g/dL (13.6-17.9); MCH 30.5 pg (27.0-35.0); MCHC 33.7 g/dL (32.0-36.0); MCV 90.4 fL (80-100); MPV 7.6 fL (7.6-11.3); RBC Red Blood Cell Count 3.28 M/uL (4.33-5.43); White Blood Count 6.60 thou/uL (4.3-10.9)
[2025-01-09 05:34] LABS: Absolute Lymphocytes (CBC) 1.2 K/uL (0.7-4.9); Nucleated RBC Absolute Count 0.0 (0-0); Nucleated Red Blood Cells % 0.0 % (0-0)
[2025-01-09 05:48] LABS: Albumin 1.9 g/dL (3.4-5.0); Anion Gap 12.0 mEq/L (5.0-15.0); BUN Blood Urea Nitrogen 18.0 mg/dL (7-18); Glucose Level 106.0 mg/dL (74-106); Potassium 4.0 mEq/L (3.5-5.1)
[2025-01-09 06:28] LABS: Calcium Oxalate Crystals- Ur Few /HPF (None Seen); Sqamous Epithelial <5 /HPF (None Seen); Urine Micro Reflex YN NO BILL MICROSCOPIC
--- NOTE | 2025-01-09 08:43 | P.PN ---
Date of Service: 01/09/25 Subjective: briefly off levophed yesterday, had to be placed back on sometime overnight 101.1 fever yesterday, 100.1 low grade temps overnight reports minimal intake family updated at bedside tolerated bedside debridement yesterday Physical Exam: Gen: Awake, NAD, confusion CV: Sinus Tachycardia, no edema Pulm: Nonlabored respirations on RA, clear bilaterally Abdomen: Soft, nontender, nondistended Integumentary: RLE heel wound with dressing in place Glez placed 01/07 Problem List: Hypotension Sepsis secondary to RLE cellulitis / heel wound Acute encephalopathy KATARZYNA Hypoglycemia with h/o NIDDM2 Diarrhea Hx of Hypertension Septic shock secondary to RLE cellulitis / heel wound s/p bedside debridement (01/08) Acute encephalopathy possible infected R heel wound. Family states similar appearance it has been Dr. Sal, general surgeon consulted empiric Rocephin/Vanc (01/09-) for now Follow wound and blood cultures 100.1 temps overnight, no leukocytosis s/p bedside debridement yesterday with Dr. Sal (01/08) Continue local wound care: Right medial foot- cleanse with vashe. apply santyl gauze, abd kerlix and andrez wrap daily Hypotension Briefly off levophed yesterday, had to be placed back on sometime overnight wean levo as tolerated. Monitor BP closely. pulm consulted KATARZYNA on CKD3 Unclear etiology hypovolemia from diarrhea and decreased PO Monitor renal function, electrolytes CT negative for any acute findings. No obstruction Nephrology consulted Continue IV fluids until intake improves CR improving Hypoglycemia with h/o NIDDM2 suspect secondary to decreased PO intake, Katarzyna, and oral meds lowering his glucose improved with d5w NS. continue IVF Stable in 90-100s Diarrhea 3-5 episodes per day at home since discharge. on antibiotics. deny any foul odor monitor for now no diarrhea since day before admission VTE: Ambulatory Code: Full Dispo: continue ICU level of care anticipate hospitalization ~3-4 days may need post acute facility
[2025-01-09] MEDS: VANCOMYCIN 1.75 GM in NA CHLORIDE 0.9% 500 ML IVPB SCH (10:34)
[2025-01-09] MEDS: VANCOMYCIN 2 GM in NA CHLORIDE 0.9% 500 ML IVPB SCH (11:00)
--- NOTE | 2025-01-09 11:40 | P.PN ---
Nephrology note (S) Pt remains in the ICU, off pressor support, BP soft but better after cuff adjustment, getting IV abx, denies abd pain, N/V/D, rt foot pain (O) vitals reviewed in the EMR General: In no apparent distress, Other (appears chronically ill) HEENT: Atraumatic, Normocephalic, Other (on LFNC/O2) Neck: Supple Respiratory: Normal air movement, Other (non tachypnec, no rhonchi) Cardiovascular: Regular rate/rhythm, mild distal Edema Gastrointestinal: Soft and benign, Non-distended, No tenderness, Other (abd striae) Musculoskeletal: No tenderness, Swelling, Erythema, Other (mild erythema of b/l lower shins, non tender to palpation), rt foot dressed Neurological: awake, conversies briefly Normal tone, Other (no tremors or myoclonus) Laboratory Data (last 24 hrs) Reviewed in the EMR Conclusions/Impression: A/P) 1. Recurrent Stage III acute or sub acute renal failure per ARIS def with presenting Cr level > 4 mg/dl in the setting of hypotension, vol depletion, recent/prior concurrent use of ARB, NSAIDs and other blunting renal auto- regulation. Abnormal findings in urine, hyaline casts, other No obstructive uropathy on imaging 2. Renal function again slowly recovering with IVF 3. Metab acidosis, acute in the setting of above, will switch D5NS IVF to isotonic bicarb added IVF 4. Hypocalcemia 2nd to hypoalbuminemia, illness, corrected Ca higher 5. Hypotension, other -resolved, hold BP lowering meds, cont hydration, off pressor support
[2025-01-09] MEDS: D5 0.45 NS 1,000 ML with NA BICARB 8.4% 75 MEQ IV SCH (12:54)
[2025-01-09] MEDS: MELATONIN 3 MG TABLET PO PRN (21:11)
[2025-01-10 05:29] LABS: Hematocrit 29.9 % (39.6-49.0); Hemoglobin 10.0 g/dL (13.6-17.9); MCH 30.2 pg (27.0-35.0); MCHC 33.4 g/dL (32.0-36.0); MCV 90.5 fL (80-100); MPV 7.6 fL (7.6-11.3); RBC Red Blood Cell Count 3.30 M/uL (4.33-5.43); White Blood Count 6.80 thou/uL (4.3-10.9)
[2025-01-10 06:03] LABS: ALT/SGPT 15.0 U/L (16-61); AST/SGOT 28.0 U/L (15-37); Albumin 1.9 g/dL (3.4-5.0); Albumin/Globulin Ratio 0.5 (1.1-1.8); Alkaline Phosphatase 29.0 U/L (45-117); Anion Gap 8.8 mEq/L (5.0-15.0); BUN Blood Urea Nitrogen 12.0 mg/dL (7-18); Globulin 3.5 g/dL (2.3-3.5); Glucose Level 100.0 mg/dL (74-106); Magnesium 1.1 mg/dL (1.6-2.4); Potassium 3.8 mEq/L (3.5-5.1)
--- NOTE | 2025-01-10 07:47 | P.PN ---
Date of Service: 01/10/25 Subjective: feeling a little better family updated at bedside afebrile since yesterday morning has bene dealing with mouth sores for last few weeks Physical Exam: Gen: Awake, NAD, confusion CV: Sinus Tachycardia, no edema Pulm: Nonlabored respirations on 2L NC, clear bilaterally Abdomen: Soft, nontender, nondistended Integumentary: RLE heel wound with dressing in place Glez placed 01/07 Problem List: Septic shock secondary to RLE cellulitis s/p bedside debridement (01/08) Acute encephalopathy, improved Hypotension, improved KATARZYNA on CKD3 Hypoglycemia with h/o NIDDM2 Diarrhea Hx of Hypertension Septic shock secondary to RLE cellulitis s/p bedside debridement (01/08) Acute encephalopathy, improved possible infected R heel wound. Family states similar appearance it has been Dr. Sal, general surgeon consulted empiric Rocephin/Vanc (01/09-) for now Blood cx - NGTD Wound cx - prelim 1+ GPC 101 fever last 2 days. Afebrile since yesterday morning. s/p bedside debridement with Dr. Sal (01/08) Continue local wound care: Right medial foot- cleanse with vashe. apply santyl gauze, abd kerlix and andrez wrap daily Hypotension, improved Weaned off levophed. BP improving. Monitor BP closely. pulm consulted. KATARZYNA on CKD3 Unclear etiology hypovolemia from diarrhea and decreased PO Monitor renal function, electrolytes CT negative for any acute findings. No obstruction Nephrology consulted CR improved. Close to baseline DC IVF. Encourage intake. Hypoglycemia with h/o NIDDM2 suspect secondary to decreased PO intake, KATARZYNA, and oral meds lowering his glucose improved with d5w NS. Stable in 90-100s DC IVF Diarrhea 3-5 episodes per day at home since discharge. on antibiotics. deny any foul odor No diarrhea since day before admission. Small formed BM yesterday. VTE: Ambulatory Code: Full Dispo: continue ICU level of care for 1 more day Likely downgrade to floor tomorrow if stable. Anticipate hospitalization ~2-3 days. may need post acute facility
[2025-01-10] MEDS: PANTOPRAZOLE 40MG TABLET PO SCH (08:07)
[2025-01-10] MEDS: Magnesium Sulfate 2gm IVPB 2 G/50 ML BAG IV ONE (08:07)
[2025-01-10] MEDS: HYDROCODONE/APAP 5/325 MG TAB PO PRN (11:17)
[2025-01-11 05:38] LABS: Hematocrit 30.8 % (39.6-49.0); Hemoglobin 10.2 g/dL (13.6-17.9); MCH 29.7 pg (27.0-35.0); MCHC 33.1 g/dL (32.0-36.0); MCV 90.0 fL (80-100); MPV 7.4 fL (7.6-11.3); RBC Red Blood Cell Count 3.42 M/uL (4.33-5.43); White Blood Count 6.60 thou/uL (4.3-10.9)
[2025-01-11 05:56] LABS: AST/SGOT 30 U/L (15-37); Albumin 1.8 g/dL (3.4-5.0); Albumin/Globulin Ratio 0.5 (1.1-1.8); Alkaline Phosphatase 29 U/L (45-117); Anion Gap 9.4 mEq/L (5.0-15.0); BUN Blood Urea Nitrogen 9 mg/dL (7-18); Globulin 3.6 g/dL (2.3-3.5); Glucose Level 98 mg/dL (74-106); Magnesium 1.5 mg/dL (1.6-2.4); Potassium 3.4 mEq/L (3.5-5.1)
[2025-01-11 06:00] LABS: ALT/SGPT < 14 U/L (16-61)
[2025-01-11] MEDS: POTASSIUM CL SA 10 MEQ TAB PO ONE (07:44)
[2025-01-11] MEDS: PANTOPRAZOLE 40MG TABLET PO SCH (07:44)
[2025-01-11] MEDS: Magnesium Sulfate 2gm IVPB 2 G/50 ML BAG IV ONE (07:44)
[2025-01-11] MEDS: ENOXAPARIN 40 MG/0.4 ML SQ SCH (08:37)
--- NOTE | 2025-01-11 08:44 | P.PN ---
Date of Service: 01/11/25 Subjective: breathing comfortably continues with low grade temps yesterday and again this morning BP remains stable off pressors continues with some pain in right leg - improving no diarrhea for several days Physical Exam: Gen: Awake, NAD, confusion CV: Regular rate and rhythm, trace lower extremity edema Pulm: Nonlabored respirations on 1L NC, clear bilaterally Abdomen: Soft, nontender, nondistended Integumentary: RLE heel wound with dark areas, no purulent drainage. leg less warm Glez placed 01/07 Problem List: Septic shock secondary to RLE cellulitis s/p bedside debridement (01/08) Acute encephalopathy, improved Hypotension, improved KATARZYNA on CKD3 Hypoglycemia with h/o NIDDM2 Diarrhea Hx of Hypertension Septic shock secondary to RLE cellulitis s/p bedside debridement (01/08) Acute encephalopathy, improved s/p bedside debridement with Dr. Sal (01/08) Dr. Sal, general surgeon is following Continue local wound care: Right medial foot- cleanse with vashe. apply santyl gauze, abd kerlix and andrez wrap daily Continue IV Vanc (01/09-); switch rocephin to IV cefepime 01/11 given cx results Blood cx - NGTD Wound cx - Pseudomonas Aeruginosa Continues with low grade temps. Tmax last 24hrs: 100.4 CRP significantly elevated today 108 pain control, PT Hypotension, improved Weaned off levophed. BP improved. Monitor BP closely. pulm consulted. KATARZYNA on CKD3, improved Unclear etiology hypovolemia from diarrhea and decreased PO Monitor renal function, electrolytes CT negative for any acute findings. No obstruction Nephrology consulted CR improved. Close to baseline Hypoglycemia with h/o NIDDM2 suspect secondary to decreased PO intake, KATARZYNA, and oral meds lowering his glucose improved with d5w NS. Continue to monitor. Diarrhea 3-5 episodes per day at home since discharge. on antibiotics. deny any foul odor No diarrhea since day before admission. VTE: Lovenox Code: Full Dispo: continue ICU level of care for now. Possible downgrade to floor today if BP stable. Anticipate hospitalization ~2-3 days. may need post acute facility
[2025-01-11] MEDS: CEFEPIME 2 GM in NA CHLORIDE 0.9% 100 ML IV SCH (11:35)
[2025-01-11] MEDS: VANCOMYCIN 1.75 GM in NA CHLORIDE 0.9% 500 ML IVPB SCH (11:52)
[2025-01-11 16:19] LABS: Albumin, (SPE) 2.5 g/dL (3.8-4.8); Total Protein 5.5 g/dL (6.1-8.1)
[2025-01-11] MEDS: NA CHLORIDE 0.9% 250 ML ONE (20:26)
[2025-01-12 06:58] LABS: Hematocrit 31.0 % (39.6-49.0); Hemoglobin 10.7 g/dL (13.6-17.9); MCH 30.7 pg (27.0-35.0); MCHC 34.4 g/dL (32.0-36.0); MCV 89.3 fL (80-100); MPV 7.1 fL (7.6-11.3); RBC Red Blood Cell Count 3.47 M/uL (4.33-5.43); White Blood Count 6.30 thou/uL (4.3-10.9)
[2025-01-12 07:23] LABS: ALT/SGPT 21.0 U/L (16-61); AST/SGOT 29.0 U/L (15-37); Albumin 1.9 g/dL (3.4-5.0); Albumin/Globulin Ratio 0.5 (1.1-1.8); Alkaline Phosphatase 41.0 U/L (45-117); Anion Gap 10.5 mEq/L (5.0-15.0); BUN Blood Urea Nitrogen 9.0 mg/dL (7-18); C-Reactive Protein 104.0 mg/L (<3.00); Globulin 3.9 g/dL (2.3-3.5); Glucose Level 89.0 mg/dL (74-106); Magnesium 1.5 mg/dL (1.6-2.4); Potassium 3.5 mEq/L (3.5-5.1)
--- NOTE | 2025-01-12 08:15 | P.PN ---
Date of Service: 01/12/25 Subjective: Doing okay no further low grade temps since yesterday denies worsening pain family updated at bedside BP improved Physical Exam: Gen: Awake, NAD, confusion CV: Regular rate and rhythm, trace lower extremity edema Pulm: Nonlabored respirations on 1L NC, clear bilaterally Abdomen: Soft, nontender, nondistended Integumentary: RLE heel wound with dark areas, no purulent drainage. leg less warm Glez placed 01/07 Problem List: Septic shock secondary to RLE cellulitis s/p bedside debridement (01/08) Acute encephalopathy, improved Hypotension, improved KATARZYNA on CKD3 Hypoglycemia with h/o NIDDM2 Diarrhea Hx of Hypertension Septic shock secondary to RLE cellulitis s/p bedside debridement (01/08) Acute encephalopathy, improved s/p bedside debridement with Dr. Sal (01/08) Dr. Sal, general surgeon is following Continue local wound care: Right medial foot- cleanse with vashe. apply santyl gauze, abd kerlix and andrez wrap daily Rocephin switched to Cefepime following culture results 01/11 Continue IV Vanc (01/09-) and IV cefepime (01/11-) Blood cx - NGTD Wound cx - Pseudomonas Aeruginosa myles-sensitive resulted 01/11 -. switched to cefepime Afebrile since yesterday, no leukocytosis ; continue to monitor, may need double coveraage if febrile CRP ~same 108 -> 104 ID consult pain control, PT Downgrade to floor today Hypotension, improved Weaned off levophed. BP improved. Monitor BP closely. pulm consulted. KATARZYNA on CKD3, improved Unclear etiology hypovolemia from diarrhea and decreased PO Monitor renal function, electrolytes CT negative for any acute findings. No obstruction Nephrology consulted CR improved. Close to baseline Hypoglycemia with h/o NIDDM2 suspect secondary to decreased PO intake, KATARZYNA, and oral meds lowering his glucose improved with d5w NS. Continue to monitor. Diarrhea 3-5 episodes per day at home since discharge. on antibiotics. deny any foul odor No diarrhea since day before admission. VTE: Lovenox Code: Full Dispo: Downgrade to floor today Anticipate hospitalization ~2-3 days. may need post acute facility
[2025-01-12] MEDS: Magnesium Sulfate 2gm IVPB 2 G/50 ML BAG IV ONE ×2 (09:29→09:50)
--- NOTE | 2025-01-12 09:32 | P.PN ---
Nephrology note (S) Pt remains in the ICU, denies CP, dyspnea, abd pain, N/V/D, rt foot pain mild, controlled, remains on Abx (O) vitals reviewed in the EMR General: In no apparent distress, Other HEENT: Atraumatic, Normocephalic, Other (on LFNC/O2) Neck: Supple Respiratory: Normal air movement, Other (non tachypnec, no rhonchi) Cardiovascular: Regular rate/rhythm, mild distal Edema Gastrointestinal: Soft and benign, Non-distended, No tenderness, Other (abd striae) Musculoskeletal: No tenderness, Swelling, Erythema, Other (mild erythema of b/l lower shins, non tender to palpation), rt foot dressed Neurological: awake, conversies briefly Normal tone, Other (no tremors or myoclonus) Laboratory Data (last 24 hrs) Reviewed in the EMR Conclusions/Impression: A/P) 1. Recurrent Stage III acute or sub acute renal failure per ARIS def with presenting Cr level > 4 mg/dl in the setting of hypotension, vol depletion, recent/prior concurrent use of ARB, NSAIDs and other blunting renal auto- regulation. Abnormal findings in urine, hyaline casts, other No obstructive uropathy on imaging ARF now resolved 2. IVF stopped 3. Metab acidosis, acute in the setting of above, resolved 4. Hypocalcemia 2nd to hypoalbuminemia, illness, corrected Ca higher 5. Hypotension, other -resolved, trend BP range 6. Hypokalemia, hypomagnesemia -replete with PO KCL and IV mg sulfate
[2025-01-12] MEDS: POTASSIUM CL SA 10 MEQ TAB PO ONE (09:52)
--- NOTE | 2025-01-12 12:50 | P.CNS ---
Date of Consult: 01/12/25 reason for consult: RLE cellulitis hpi: 64 years old with hx DM, right heel diabetic ulcer and Andrew. his wound grew pseudomonas. pt is currently on vancomycin and cefepime. WBC WNL. blood culture no growth in 5 days. pt denied NVD. No fever. Denied any concern or complaints ros: please see hpi Current Medications Acetaminophen (Acetaminophen 500 Mg Tab) 500 mg PO Q4HP PRN PRN Reason: TEMP > 100' F Last Admin: 01/11/25 17:04 Dose: 500 mg Hydrocodone Bitart/Acetaminophen (Hydrocodone/Apap 5/325 Mg Tab) 1 tab PO Q6H PRN PRN Reason: Pain scale 5-7 (Moderate) Last Admin: 01/12/25 06:32 Dose: 1 tab Albuterol Sulfate (Albuterol 2.5 Mg/3 Ml Neb Diana) 2.5 mg NEB [id number] PRN PRN Reason: WHEEZING Last Admin: 01/09/25 02:15 Dose: 2.5 mg Collagenase (Collagenase 30 Gm Ointment) 1 appl TOP DAILY JESÚS Last Admin: 01/12/25 08:28 Dose: 1 appl Enoxaparin Sodium (Enoxaparin 40 Mg/0.4 Ml) 40 mg SQ DAILY JESÚS Last Admin: 01/12/25 08:21 Dose: 40 mg Cefepime HCl 2 gm/ Sodium (Chloride) 100 mls @ 200 mls/hr IV Q12HR JESÚS; Protocol Last Admin: 01/12/25 08:21 Dose: 100 mls Ipratropium [place] (Ipratropium Brom 0.5mg/2.5ml) 0.5 mg NEB [id number] PRN PRN Reason: WHEEZING Last Admin: 01/09/25 02:15 Dose: 0.5 mg Melatonin (Melatonin 3 Mg Tablet) 3 mg PO BEDTIME PRN PRN PRN Reason: INSOMNIA Last Admin: 01/10/25 20:52 Dose: 3 mg Ondansetron HCl (Ondansetron 4 Mg/2 Ml Vial) 4 mg IV Q6HP PRN PRN Reason: NAUSEA / VOMITING Last Admin: 01/09/25 02:31 Dose: 4 mg Pantoprazole Sodium (Pantoprazole 40mg Tablet) 40 mg PO ACB JESÚS; Protocol Last Admin: 01/12/25 08:21 Dose: 40 mg Allergies No Known Allergies Allergy (Verified 12/26/24 04:08) - Past Medical/Surgical History Diabetic: Yes -: Type 2 diabetes mellitus. -: Back pain. -: ARTHRITIS -: Hypertension. -: Hypercholesteremia -: ARF episode evaluated by Dr. Miranda -: Back surgery - Family History Family History: Reviewed- Non-Contributory - Social History Smoking Status: Unknown if ever smoked Alcohol use: No CD- Drugs: No Caffeine use: Yes Place of Residence: Home objective Temp Pulse Resp BP Pulse Ox 99.1 F 105 H 20 114/58 L 92 01/12/25 12:00 01/12/25 12:00 01/12/25 12:00 01/12/25 12:00 01/12/25 12:00 Physical Exam: Gen: Awake, NAD, CV: Regular rate and rhythm, trace lower extremity edema Pulm: Nonlabored respirations on 1L NC, clear bilaterally Abdomen: Soft, nontender, nondistended Integumentary: RLE heel dressing extremity: bilateral hand trace edema labs: wbc 6.3, hgb 10.7, platelet 558, bun 9. cr 0.90, albumin 1.9 assessment and planning 1. Septic shock secondary to Right foot stage IV diabetic ulcer s/p debridement 01/08 2. ANDREW on CKD3 3. hypoglycemia with h/o NIDDM2 4. severe protein calorie malnourishment pt is currently on cefepime and vancomycin. recommend to dc vancomycin. wound like to switch patient to levaquin depending on ekg. continue abx for 2 weeks. ekg pending blood culture neg wound care per Dr Sal will continue to monitor for infection with wbc and fever trend thank you Dr cheng for the consult case discussed and in agreement with Dr Childers
[2025-01-13 05:37] LABS: Hematocrit 29.8 % (39.6-49.0); Hemoglobin 10.1 g/dL (13.6-17.9); MCH 30.1 pg (27.0-35.0); MCHC 33.8 g/dL (32.0-36.0); MCV 88.9 fL (80-100); MPV 7.2 fL (7.6-11.3); RBC Red Blood Cell Count 3.35 M/uL (4.33-5.43); White Blood Count 7.00 thou/uL (4.3-10.9)
[2025-01-13 06:03] LABS: ALT/SGPT 15.0 U/L (16-61); AST/SGOT 36.0 U/L (15-37); Albumin 2.1 g/dL (3.4-5.0); Albumin/Globulin Ratio 0.5 (1.1-1.8); Alkaline Phosphatase 33.0 U/L (45-117); Anion Gap 11.5 mEq/L (5.0-15.0); BUN Blood Urea Nitrogen 8.0 mg/dL (7-18); C-Reactive Protein 117.0 mg/L (<3.00); Globulin 4.0 g/dL (2.3-3.5); Glucose Level 85.0 mg/dL (74-106); Magnesium 1.9 mg/dL (1.6-2.4); Potassium 3.5 mEq/L (3.5-5.1)
--- NOTE | 2025-01-13 14:18 | P.PN ---
Subjective Date of Service: 01/13/25 Chief Complaint: AMS Patient has no new complaints. No recorded fever. Physical Examination - Vital Signs Temperature: 98.5 F Blood Pressure: 133/66 Pulse: 110 Respirations: 20 Pulse Ox (%): 95 - Studies Microbiology Data (last 24 hrs): 01/07/25 09:45 Blood - Blood Aerobic Blood Culture - Final No growth in 5 days. 01/07/25 09:45 Blood - Blood Anaerobic Blood Culture - Final No growth in 5 days. 01/07/25 10:08 Blood - Blood Aerobic Blood Culture - Final No growth in 5 days. 01/07/25 10:08 Blood - Blood Anaerobic Blood Culture - Final No growth in 5 days. Assessment And Plan - Plan Physical Exam: Gen: Awake, NAD. CV: Regular rate and rhythm, trace lower extremity edema Pulm: clear bilaterally, adequate breath sounds bilaterally Abdomen: Soft, nontender, nondistended Integumentary: RLE heel wound with dark areas, no purulent drainage. Glez placed 01/07 Problem List: Septic shock secondary to RLE cellulitis s/p bedside debridement (01/08) Acute encephalopathy, improved Hypotension, improved KATARZYNA on CKD3 Hypoglycemia with h/o NIDDM2 Diarrhea Hx of Hypertension Plan: Septic shock secondary to RLE cellulitis s/p bedside debridement (01/08) Acute encephalopathy, improved s/p bedside debridement with Dr. Sal (01/08) Dr. Sal, general surgeon is following Continue local wound care: Right medial foot- cleanse with vashe. apply santyl gauze, abd kerlix and andrez wrap daily Rocephin switched to Cefepime following culture results 01/11 Continue IV Vanc (01/09-) and IV cefepime (01/11-) Blood cx - NGTD Wound cx - Pseudomonas Aeruginosa myles-sensitive resulted 01/11 -. switched to cefepime Afebrile since yesterday, no leukocytosis ; continue to monitor, may need double coveraage if febrile CRP ~same 108 -> 104 ID consult pain control, PT Downgrade to floor today Hypotension, improved Weaned off levophed. BP improved. Monitor BP closely. pulm consulted. KATARZYNA on CKD3, improved Unclear etiology hypovolemia from diarrhea and decreased PO Monitor renal function, electrolytes CT negative for any acute findings. No obstruction Nephrology consulted CR improved. Close to baseline Hypoglycemia with h/o NIDDM2 suspect secondary to decreased PO intake, KATARZYNA, and oral meds lowering his glucose improved with d5w NS. Continue to monitor. Diarrhea 3-5 episodes per day at home since discharge. on antibiotics. deny any foul odor No diarrhea since day before admission. 01/13/2025 1. Blood cultures have yielded no growth, wound cultures growing Pseudomonas aeruginosa, blood pressure improved and stable. Continue IV cefepime, plans to transition to oral Levaquin for discharge. Patient slated for 2 weeks of antibiotic. 2. General surgery Dr. Sal is following for wound care. 3. KATARZYNA resolved. 4. Patient with decreased mobility. Continue PT. 5. Monitor for diarrhea. VTE: Lovenox Code: Full Dispo: Home health vs SNF
--- NOTE | 2025-01-13 19:02 | PN ---
Subjective: The patient is lying in bed, family by the bedside, not in any acute distress, feels sli ghtly better today. Objective: Vital Signs: Temperature 98, pulse 114, respiration 20, blood pressure 112/59. Lungs: Basal crackles. Heart: S1, S2. Regular. Abdomen: Soft, nontender. Bowel sounds present. Extremities: Wound noted. Laboratory Data: Shows WBC 7, hemoglobin 10, platelets are 585. BUN of 8, creatinine 0.7. Micro data showing pseudomonas growth from the right foot wound. The patient is currently on cefepime. Assessment And Plan: Right foot pressure ulcer, status post debridement on January 08. Continue woun d care and antibiotic. The patient's blood sugars are under control. Continue current treatment for 2 weeks. We will follow the patient as needed. NF/MODL Voice ID: [id number] Report ID: [id number]
[2025-01-13] MEDS: GLUCERNA SHAKE 237 ML CAN PO SCH (20:53)
[2025-01-14 06:10] LABS: Absolute Lymphocytes (CBC) 1.7 K/uL (0.7-4.9); Hematocrit 33.4 % (39.6-49.0); Hemoglobin 11.0 g/dL (13.6-17.9); MCH 29.4 pg (27.0-35.0); MCHC 32.9 g/dL (32.0-36.0); MCV 89.2 fL (80-100); MPV 6.9 fL (7.6-11.3); Nucleated RBC Absolute Count 0.0 (0-0); Nucleated Red Blood Cells % 0.0 % (0-0); RBC Red Blood Cell Count 3.74 M/uL (4.33-5.43); White Blood Count 7.80 thou/uL (4.3-10.9)
[2025-01-14 06:37] LABS: Anion Gap 10.6 mEq/L (5.0-15.0); BUN Blood Urea Nitrogen 8.0 mg/dL (7-18); C-Reactive Protein 112.0 mg/L (<3.00); Glucose Level 100.0 mg/dL (74-106); Potassium 3.6 mEq/L (3.5-5.1)
--- NOTE | 2025-01-14 13:13 | P.PN ---
Date of Service: 01/14/25 subjective: VS stable, no concern or problem with abx. afebrile objective Temp Pulse Resp BP Pulse Ox 97.9 F 119 H 19 107/54 L 95 01/14/25 12:00 01/14/25 12:00 01/14/25 12:00 01/14/25 12:00 01/14/25 12:00 Physical Exam: Gen: Awake, NAD, CV: Regular rate and rhythm, trace lower extremity edema Pulm: Nonlabored respirations on 1L NC, clear bilaterally Abdomen: Soft, nontender, nondistended Integumentary: RLE heel dressing extremity: bilateral hand trace edema labs: wbc 7.8, hgb 11, platelet 584, bun 8, cr 0.75, albumin 2.1 assessment and planning 1. Septic shock secondary to Right foot stage IV diabetic ulcer s/p debridement 01/08 2. KATARZYNA on CKD3 3. hypoglycemia with h/o NIDDM2 4. moderate protein calorie malnourishment wound growing pseudomonas. susceptible to cefepime, cipro, levaquin pt is currently on cefepime. recommend to switch to levaquin. EKG 325/394. Can be discharge with levaquin PO. continue abx for 2 weeks from when cefepime was started. blood culture neg wound care per Dr Sal will continue to monitor for infection with wbc and fever trend case discussed and in agreement with Dr Childers
[2025-01-14] MEDS: METOPROLOL XL 25 MG TAB PO SCH (13:56)
[2025-01-14] MEDS: Levofloxacin 750mg IV 750 MG/150 ML BAG IV SCH (13:57)
[2025-01-14] MEDS: MAGIC MOUTHWASH 180 ML BTL PO PRN (18:52)
--- NOTE | 2025-01-14 19:02 | P.PN ---
Subjective Date of Service: 01/14/25 Chief Complaint: AMS Patient denies any new complain. Blood pressure has been stopped, heart rate has been up to 115. No recorded fever. Patient is eating well and denies any pain. Physical Examination - Vital Signs Temperature: 98.2 F Blood Pressure: 90/49 Pulse: 115 Respirations: 18 Pulse Ox (%): 95 Assessment And Plan - Plan Physical Exam: Gen: Awake, NAD. CV: Regular rate and rhythm, trace lower extremity edema Pulm: clear bilaterally, adequate breath sounds bilaterally Abdomen: Soft, nontender, nondistended Integumentary: RLE heel ulcer, no purulent drainage. Glez placed 01/07 Problem List: Septic shock secondary to RLE cellulitis s/p bedside debridement (01/08) Acute encephalopathy, improved Hypotension, improved KATARZYNA on CKD3 Hypoglycemia with h/o NIDDM2 Diarrhea Hx of Hypertension Plan: Septic shock secondary to RLE cellulitis s/p bedside debridement (01/08) Acute encephalopathy, improved s/p bedside debridement with Dr. Sal (01/08) Dr. Sal, general surgeon is following Continue local wound care: Right medial foot- cleanse with vashe. apply santyl gauze, abd kerlix and nadrez wrap daily Rocephin switched to Cefepime following culture results 01/11 Continue IV Vanc (01/09-) and IV cefepime (01/11-) Blood cx - NGTD Wound cx - Pseudomonas Aeruginosa myles-sensitive resulted 01/11 -. switched to cefepime Afebrile since yesterday, no leukocytosis ; continue to monitor, may need double coveraage if febrile CRP ~same 108 -> 104 ID consult pain control, PT Downgrade to floor today Hypotension, improved Weaned off levophed. BP improved. Monitor BP closely. pulm consulted. KATARZYNA on CKD3, improved Unclear etiology hypovolemia from diarrhea and decreased PO Monitor renal function, electrolytes CT negative for any acute findings. No obstruction Nephrology consulted CR improved. Close to baseline Hypoglycemia with h/o NIDDM2 suspect secondary to decreased PO intake, KATARZYNA, and oral meds lowering his glucose improved with d5w NS. Continue to monitor. Diarrhea 3-5 episodes per day at home since discharge. on antibiotics. deny any foul odor No diarrhea since day before admission. 01/13/2025 1. Blood cultures have yielded no growth, wound cultures growing Pseudomonas aeruginosa, blood pressure improved and stable. Continue IV cefepime, plans to transition to oral Levaquin for discharge. Patient slated for 2 weeks of antibiotic. 2. General surgery Dr. Sal is following for wound care. 3. KATARZYNA resolved. 4. Patient with decreased mobility. Continue PT. 5. Monitor for diarrhea. 01/14/2025 1. Infectious disease input appreciated. Antibiotics transition to Levaquin. Patient to complete 2 weeks of treatment. 2. Dr. Sal to follow for wound care, continue daily wound dressing. 3. Discontinue Glez catheter for voiding trial 4. Increase activity as tolerated 5. Resume oral Toprol-XL 25 mg daily with holding parameters for chronic tachycardia. Monitor BP. VTE: Lovenox Code: Full Dispo: Home health vs SNF
--- NOTE | 2025-01-14 19:03 | PN ---
Date of Progress Note: 01/14/2025 Reason For Service: Right foot diabetic necrotic ulcer, status post debridement. Subjective: The patient is doing better. Not much granulation tissue present. No fluctuance seen. No crepitus after debridement. Plan: We will continue with dressing changes, Santyl daily. We all advised him also as an outpatien t to consult with his vascular doctors to see if there is any circulation issues that we have to addr ess. Nutrition also discussed with the patient. Diabetes control is imperative. Weight control, le g elevation, and dressing changes daily. He was [facility]. MIGUEL/CARLYN Voice ID: [id number] Report ID: [id number]
[2025-01-15 04:39] VITALS: BMI 31.5
[2025-01-15] MEDS: METOPROLOL XL 25 MG TAB PO SCH (06:43)
--- NOTE | 2025-01-15 09:01 | P.DS ---
Admission Date: 01/07/25 Discharge Date: 01/15/25 Disposition: ROUTINE DISCHARGE Discharge Condition: FAIR Reason for Admission: AMS Brief History of Present Illness: 64yo M, recently discharged after hospitalized for R heel ulcer/infection and KATARZYNA was brought to the ED today via EMS after he was found unresponsive in bed. Family reported patient had diarrhea and decreased appetite. Patient also followed up in the medical clinic after discharge. EMS found patient's glucose read low on the glucometer. In the ED, he improved with D50w. His glucose was better on arrival to ED. His lactate was elevated at 2.1. Sepsis workup and antibiotics initiated in ED, with possible infectious source being his heel. Patient was admitted for further management. Hospital Course: Problem List: Septic shock secondary to RLE cellulitis s/p bedside debridement (01/08) Acute encephalopathy, improved Hypotension, improved KATARZYNA on CKD3 Hypoglycemia with h/o NIDDM2 Diarrhea Hx of Hypertension Patient admitted to the medical floor and the following medical problems addressed: Plan: Septic shock secondary to RLE cellulitis s/p bedside debridement (01/08) Acute encephalopathy-resolved Patient initially admitted to the ICU due to the hypoglycemia and hyperventilation s/p bedside debridement with Dr. Sal (01/08) Dr. Sal, general surgeon is following Local wound care done with vashe, santyl gauze, abd kerlix and andrez wrap daily. Wound culture grew Pseudomonas. Patient initially on Rocephin which was switched to Cefepime. He was also receiving vancomycin. Infectious disease evaluated patient, patient received 8 days of IV antibiotics, 4 days of IV cefazolin Antibiotics transition to Levaquin, patient discharged with oral Levaquin Hypotension, improved Patient initially required Levophed drip. He was subsequently weaned and transferred out of the unit to the medical floor Blood pressures relatively stable. pulm consulted. KATARZYNA Secondary to dehydration from diarrhea and decreased PO KATARZYNA resolved. CT negative for any acute findings. No obstruction Nephrology evaluated patient and assisted with management. Hypoglycemia with h/o NIDDM2 suspect secondary to decreased PO intake, KATARZYNA, and oral hypoglycemics Resolved. Chronic sinus tachycardia Toprol-XL 25 mg resumed. Patient blood pressure was stable without Toprol XL. Vital Signs/Physical Exam: Temp Pulse Resp BP Pulse Ox 98.9 F 120 H 31 H 114/55 L 94 01/15/25 05:26 01/15/25 06:43 01/15/25 08:28 01/15/25 06:43 01/15/25 08:28 General: Alert, In no apparent distress, Oriented x3 HEENT: Mucous membr. moist/pink, Sclerae nonicteric Neck: Supple, JVD not distended Respiratory: Clear to auscultation bilaterally, Normal air movement Cardiovascular: No edema, Regular rate/rhythm, Normal S1 S2 Gastrointestinal: Normal bowel sounds, Soft and benign, Non-distended, No tenderness Musculoskeletal: No tenderness Integumentary: No cyanosis Neurological: Normal strength at 5/5 x4 extr Laboratory Data at Discharge: WBC 7.80 thou/uL (4.3-10.9) 01/14/25 06:00 Hgb 11.0 g/dL (13.6-17.9) L D 01/14/25 06:00 Hct 33.4 % (39.6-49.0) L 01/14/25 06:00 Plt Count 584 thou/uL (152-406) H 01/14/25 06:00 PT 17.1 SECONDS (10-13.0) H 01/08/25 08:44 INR 1.53 01/08/25 08:44 APTT 28.2 SECONDS (27.2-37.4) 01/08/25 08:44 Sodium 137 mEq/L (136-145) 01/14/25 06:00 Potassium 3.6 mEq/L (3.5-5.1) 01/14/25 06:00 BUN 8 mg/dL (7-18) 01/14/25 06:00 Creatinine 0.75 mg/dL (0.70-1.30) 01/14/25 06:00 Glucose 100 mg/dL (74-106) 01/14/25 06:00 Uric Acid 7.8 mg/dL (3.5-7.2) H 01/08/25 08:44 Phosphorus 2.7 mg/dL (2.5-4.9) 01/09/25 05:18 Magnesium 1.9 mg/dL (1.6-2.4) 01/13/25 05:18 Total Bilirubin 0.5 mg/dL (0.2-1.0) 01/13/25 05:18 AST 36 U/L (15-37) 01/13/25 05:18 ALT 15 U/L (16-61) L 01/13/25 05:18 Alkaline Phosphatase 33 U/L (45-117) L 01/13/25 05:18 Home Medications: Rosuvastatin Calcium 40 mg PO BEDTIME 01/19/24 Metoprolol Succinate [Toprol Xl*] 25 mg PO [id number] #60 tab 01/25/24 Fenofibrate Nanocrystallized [Fenofibrate] 145 mg PO DAILY 12/26/24 Omeprazole 20 mg PO DAILY 01/07/25 Collagenase [Santyl Ointment*] 1 appl TOP DAILY #30 gm 01/14/25 Magic Mouthwash [Magic Mouthwash*] 15 ml PO QID PRN #1 bottle 01/14/25 levoFLOXacin [Levaquin] 750 mg PO DAILY #7 tab 01/15/25 New Medications: levoFLOXacin [Levaquin] 750 mg PO DAILY #7 tab Magic Mouthwash [Magic Mouthwash*] 15 ml PO QID PRN #1 bottle PRN Reason: Sore Throat Collagenase [Santyl Ointment*] 1 appl TOP DAILY #30 gm Followup: Josue Sal MD [ACTIVE - CAN ADMIT] - 1-2 Weeks NONE,NONE [Primary Care Provider] - Time spent managing pt's care (in minutes): 34
[2025-01-15 09:07] VITALS: O2SAT 94
[2025-01-15 10:08] VITALS: TEMP 98.6
[2025-01-15 12:17] VITALS: BP 107/64
== END 2025-01-15 13:35 | disposition home or self-care (01) | DRG 853 ==
LOC: ER 07:08 → ERHOLD 12:58 → 3RD-ICU 19:31 → 2ND 01-12 10:01
PROVIDERS: ADMIT Hospitalist; ATTEND Internal Medicine
PROC: 0T9B70Z Drainage of Bladder with Drainage Device, Via Natural or Artificial Opening (ICD-10-PCS; 2025-01-07)
PROC: 0JBQ0ZZ Excision of Right Foot Subcutaneous Tissue and Fascia, Open Approach (ICD-10-PCS; principal; 2025-01-08)
DX: A41.9 Sepsis, unspecified organism (principal); E43 Unspecified severe protein-calorie malnutrition; N17.0 Acute kidney failure with tubular necrosis; R65.21 Severe sepsis with septic shock; L03.115 Cellulitis of right lower limb; E87.1 Hypo-osmolality and hyponatremia; E87.20 Acidosis, unspecified; R44.0 Auditory hallucinations; G93.40 Encephalopathy, unspecified; E11.52 Type 2 diabetes mellitus with diabetic peripheral angiopathy with gangrene; E11.649 Type 2 diabetes mellitus with hypoglycemia without coma; E83.51 Hypocalcemia; E86.0 Dehydration; E78.00 Pure hypercholesterolemia, unspecified; N40.0 Benign prostatic hyperplasia without lower urinary tract symptoms; E88.09 Other disorders of plasma-protein metabolism, not elsewhere classified; I12.9 Hypertensive chronic kidney disease with stage 1 through stage 4 chronic kidney disease, or unspecified chronic kidney disease; N18.30 Chronic kidney disease, stage 3 unspecified; E11.22 Type 2 diabetes mellitus with diabetic chronic kidney disease; E11.621 Type 2 diabetes mellitus with foot ulcer; L97.519 Non-pressure chronic ulcer of other part of right foot with unspecified severity; D63.1 Anemia in chronic kidney disease; B96.5 Pseudomonas (aeruginosa) (mallei) (pseudomallei) as the cause of diseases classified elsewhere; R44.1 Visual hallucinations; R19.7 Diarrhea, unspecified; Z78.1 Physical restraint status; Z68.31 Body mass index [BMI] 31.0-31.9, adult; Z79.84 Long term (current) use of oral hypoglycemic drugs; Z79.899 Other long term (current) drug therapy
CPT/HCPCS: 36415; 51702; 70450; 71045; 74176; 80048; 80053; 80069; 80202; 81001; 82550; 82947; 83605; 83735; 84100; 84165; 84300; 84550; 85025; 85027; 85610; 85730; 86038; 86140; 86704; 86706; 86803; 87040; 87070; 87077; 87186; 87205; 87340; 93005; 94010; 94640; 94760; 97116; 97161; 97530; 99285; J0692; J0696; J1200; J1650; J2003; J2405; J3373; J3475; J7040; J7042; J7050; J7060; J7613; J7644; J7799; P9047